=== PATIENT | female | born 1935 | race Asian ===

== ENCOUNTER 2016-12-19 19:41 | Inpatient (IN) | payer MEDICARE, OTHER ==
[~2016-12-19] VITALS: Ht 162.6 cm; Wt 69.5 kg
[~2016-12-19 19:41] MED LIST: ALEN70TA30 PO; AMLO-218 PO; ANAS1TAB PO; ASPI-664 PO; ATOR20TA38 PO; AUG875 PO; CHOL2000 PO; DICL75TA2 PO; DONE5TAB7 PO; OMEP40CA6 PO; OXYB5TAB22 PO
[2016-12-19 20:18] VITALS: Ht 162.6 cm; Wt 69.5 kg
[2016-12-19] MEDS ORDERED: morphine 2 MG INJ IV STA (22:22)
[2016-12-19] MEDS ORDERED: SOD CHLORIDE 0.9% 500 ML IV STA (22:22)
[2016-12-19] MEDS ORDERED: ONDANSETRON 4 MG INJ IV STA (22:22)
--- NOTE | 2016-12-19 23:22 | RADRPT ---
PROCEDURE: Portable chest x-ray. CLINICAL INDICATION: 81 years female abdominal pain TECHNIQUE: Portable AP view of the chest. COMPARISON: December 15, 2014 FINDINGS: Atherosclerotic calcification and tortuosity thoracic aorta. Normal heart size. Decreased lung volumes with vascular crowding versus mild edema. There is bilateral bronchial wall thickening with mild patchy opacity in the left lower lung zone. Negative for pleural effusion or pneumothorax.. No acute bony abnormality. Limited evaluation of the upper abdomen is unremarkable. IMPRESSION: Decreased lung volumes with vascular crowding versus mild edema. Bilateral bronchial wall thickening is in keeping with inflammation of the lower airways that may be infectious or due to reactive airways disease. Mild patchy opacity in the left lower lung zone may represent early pneumonia. Recommend clinical correlation. RPTAT: HCTS Physician Calvin Date Time Electronically viewed and signed by Physician Calvin on 12/19/2016 23:21 /
[2016-12-19 23:27] LABS: BASOPHILS % 0.2 % (0.0-2.0); EOSINOPHILS % 0.1 % (0.0-7.0); HEMATOCRIT 40.1 % (37.0-47.0); HEMOGLOBIN 13.6 g/dl (12.0-16.0); LYMPHOCYTES # 1.4 10^3/ul (0.8-2.9); LYMPHOCYTES % 11.1 % (15.0-51.0); MEAN CORPUSCULAR HEMOGLOBIN 30.2 pg (29.0-33.0); MEAN CORPUSCULAR HGB CONC 33.9 g/dl (32.0-37.0); MEAN CORPUSCULAR VOLUME 88.9 fl (82.0-101.0); MEAN PLATELET VOLUME 9.5 fl (7.4-10.4); MONOCYTE # 1.2 10^3/ul (0.3-0.9); MONOCYTES % 9.9 % (0.0-11.0); PLATELET COUNT 191 10^3/UL (140-415); RED BLOOD COUNT 4.51 10^6/ul (4.20-5.40); RED CELL DISTRIBUTION WIDTH 12.5 % (11.5-14.5); WHITE BLOOD COUNT 12.2 10^3/ul (4.8-10.8)
--- NOTE | 2016-12-19 23:42 | RADRPT ---
PROCEDURE: CT ABDOMEN/PELVIS WITHOUT CONTRAST CLINICAL INDICATION: 81-year-old female with abdominal pain. TECHNIQUE: The study was performed utilizing a GE [employer] VCT 64-slice CT scanner. Direct axia l sections were obtained through the abdomen and pelvis without the use of intravenous contrast mate rial. Sagittal and coronal reformations were obtained. One or more of the following dose reduction t echniques were utilized: automated exposure control, adjustment of the mA and/or kV according to pat ient's size or use of iterative reconstruction technique. The images were reviewed on a PACS workst atMashery. CTD/vol = 15.2 mGy; Total Exam DLP = 791.0 mGy-cm. COMPARISON: CT abdomen/pelvis December 15, 2014. FINDINGS: Cardiomegaly is present. There is minimal bibasilar subsegmental atelectasis. There is no evidence for significant pleural effusion. The liver has a normal size and contour without focal areas of a bnormal density. No intrahepatic nor extrahepatic biliary ductal dilatation is seen. The gallbladder is difficult to visualize but appears to be contracted without evidence for calcified stones or per icholecystic fluid. The pancreas is without areas of abnormal attenuation. The spleen is identified and has a normal size without abnormal density. The adrenal glands are unremarkable. The kidneys ar e without abnormal density. No hydroureteronephrosis nor nephroureterolithiasis is evident. The urin petey bladder contains urine. Is mild retained stool throughout the redundant colon without gross babar l obstruction. There are multiple small diverticula identified within the colon predominantly withi n the sigmoid region without surrounding inflammatory changes. The appendix is visualized and is without abnormal thickening or surrounding inflammatory reaction. The uterus is atrophic with promin ent fluid within the endometrial canal measuring up to 14 mm. This is an abnormal finding in a post menopausal patient. There is no significant free fluid. The aortoiliac vessels are minimally calci fied and ectatic without aneurysmal dilatation. Degenerative changes are present throughout the spin e. There is a T12 compression fracture with approximately 30% loss of height containing gas and acu te components. There is an old L5 compression fracture with approximately 80% loss of height with e vidence for prior kyphoplasty without interval change. There are old fracture deformities involving the right superior/inferior pubic rami. Diffuse osteopenia is present. IMPRESSION: 1. Cardiomegaly. 2. Retained stool within the redundant colon without obstruction. 3. No CT evidence for appendicitis. 4. Sigmoid diverticulosis. 5. Fluid within the endometrial canal having a thickness of 14 mm which has an abnormal finding in a postmenopausal patient. Further evaluation is indicated. 6. Interval development of T12 compression fracture containing gas and acute components with 30% lo ss of height. 7. Old L5 compression fracture (80%) with prior kyphoplasty. 8. Old right superior/inferior pubic rami compression fractures. 9. Diffuse osteopenia. .Erasmo Lagos MD, MD Date Time Electronically viewed and signed by .Erasmo Lagos MD, on 12/19/2016 23:42 .M/
[2016-12-19 23:47] LABS: INR 0.92; PROTIME 12.4 Sec (12.2-14.2)
[2016-12-19 23:50] LABS: ALBUMIN 4.2 g/dl (3.3-4.9); ALBUMIN/GLOBULIN RATIO 1.1; BILIRUBIN,INDIRECT 0.5 mg/dl (0-1.1); BILIRUBIN,TOTAL 0.5 mg/dl (0.2-1.3); CALCIUM 8.8 mg/dl (8.4-10.2); CREATININE 0.95 mg/dl (0.44-1.00)
[2016-12-20] LABS: TROPONIN-I 0.013 ng/ml (0.00-0.12)
[2016-12-20 01:11] LABS: URINE BLOOD (Dip) POC Trace-intact (NEGATIVE)
[2016-12-20] MEDS ORDERED: SOD CHLORIDE 0.9% 500 ML IV STA (01:28)
[2016-12-20] MEDS ORDERED: CEFTRIAXONE 1 GM/50 ML (PMX) 50 ML IVPB STA (01:28)
[2016-12-20] MEDS ORDERED: AZITHROMYCIN 500MG/NS (PMX) 250 ML IV STA (01:28)
[2016-12-20 02:06] LABS: ADD UMIC YES; UR ASCORBIC ACID NEGATIVE (NEGATIVE); UR BACTERIA FEW /HPF (NONE SEEN); UR BILIRUBIN (Dip) NEGATIVE (NEGATIVE); UR BLOOD (Dip) NEGATIVE (NEGATIVE); UR CLARITY CLOUDY (CLEAR); UR COLOR YELLOW (YELLOW); UR GLUCOSE (Dip) 1+ mg/dL (NEGATIVE); UR KETONES (Dip) NEGATIVE (NEGATIVE); UR LEUKOCYTE ESTERASE (Dip) NEGATIVE Leu/ul (NEGATIVE); UR NITRITE (Dip) NEGATIVE (NEGATIVE); UR RBC 2 /HPF (0-5); UR SPECIFIC GRAVITY (Dip) 1.013 (1.003-1.030); UR SQUAMOUS EPITHELIAL CELL MANY /HPF (FEW); UR TOTAL PROTEIN (Dip) 2+ mg/dl (NEGATIVE); UR UROBILINOGEN (Dip) 1+ mg/dL (NEGATIVE)
[2016-12-20 02:33] VITALS: TEMP 97.9
--- NOTE | 2016-12-20 02:34 | ERA ---
ER Documentation Chief Complaint Date/Time DATE: 12/20/16 TIME: 02:22 Chief Complaint Abd pain x 3, -n/v/d HPI 81-year-old female abdominal pain for 3 days. She denies nausea vomiting or diarrhea. Denies any fevers or chills denies nausea or vomiting. Denies any other current complaints. Eating and acting normally otherwise. ROS All systems reviewed and are negative except as per history of present illness. Medications Home Meds Active Scripts Amoxicillin-Clavulanate K* (Augmentin*) 875 Mg Tab, 875 MG PO BID for 12 Days, TAB Prov:SYD JOHNSON 12/21/14 Aspirin* (Aspirin* EC) 81 Mg Tabec, 81 MG PO DAILY for 30 Days Prov:SYD JOHNSON 12/21/14 Reported Medications Cholecalciferol* (Vitamin D3*) 2,000 Unit Cap, 2000 UNIT PO DAILY, CAP 12/15/14 Donepezil* (Donepezil*) 5 Mg Tablet, 5 MG PO DAILY, TAB 12/15/14 Amlodipine Besylate* (Norvasc*) 10 Mg Tablet, 10 MG PO DAILY, TAB 12/15/14 Diclofenac Sodium* (Diclofenac Sodium*) 75 Mg Tablet.dr, 75 MG PO BID, TAB 12/15/14 Oxybutynin Chloride* (Ditropan* XL) 5 Mg Tabsr, 5 MG PO DAILY, TAB.SA 12/15/14 Atorvastatin Calcium* (Atorvastatin Calcium*) 20 Mg Tablet, 20 MG PO HS, TAB 12/15/14 Anastrozole* (Arimidex*) 1 Mg Tablet, 1 MG PO DAILY, TAB 12/15/14 Omeprazole* (Omeprazole*) 40 Mg Capsule.dr, 40 MG PO DAILY, CAP 12/15/14 Alendronate Sodium* (Fosamax*) 70 Mg Tablet, 70 MG PO ON FRIDAYS, TAB 12/15/14 Allergies Allergies: Coded Allergies: No Known Allergy (Unverified , 12/17/14) PMhx/Soc History of Surgery: Yes (L breast mastectomy, R breast lumpectomy) Anesthesia Reaction: No Hx Neurological Disorder: No Hx Respiratory Disorders: No Hx Cardiac Disorders: Yes (HTN) Hx Psychiatric Problems: No Hx Miscellaneous Medical Probl: Yes (Htn,breast CA,arthritis,acid reflux, dementia,dyslipid,R orbital enucleation) Hx Alcohol Use: No Hx Substance Use: No Hx Tobacco Use: No Smoking Status: Never smoker Physical Exam Vitals Vital Signs Date Time Temp Pulse Resp B/P Pulse Ox O2 Delivery O2 Flow Rate FiO2 12/19/16 20:18 99.3 78 18 145/80 95 Physical Exam Const: [] Head: Atraumatic Eyes: Normal Conjunctiva ENT: Normal External Ears, Nose and Mouth. Neck: Full range of motion..~ No meningismus. Resp: Clear to auscultation bilaterally Cardio: Regular rate and rhythm, no murmurs Abd: Soft, non tender, non distended. Normal bowel sounds Skin: No petechiae or rashes Back: No midline or flank tenderness Ext: No cyanosis, or edema Neur: Awake and alert Psych: Normal Mood and Affect Result Diagram: 12/19/16225412/19/162254 Results 24 hrs Laboratory Tests Test 12/19/16 01:05 12/19/16 10:25 12/19/16 22:55 12/20/16 01:16 Urine Color YELLOW Urine Clarity CLOUDY Urine pH 6.0 Urine Specific Robinson 1.013 Urine Ketones NEGATIVEmg/dL Urine Nitrite NEGATIVEmg/dL Urine Bilirubin NEGATIVEmg/dL Urine Urobilinogen 1+mg/dL Urine Leukocyte Esterase NEGATIVELeu/ul Urine Microscopic RBC 2/HPF Urine Microscopic WBC 2/HPF Urine Squamous Epithelial Cells MANY/HPF Urine Bacteria FEW/HPF Urine Hemoglobin NEGATIVEmg/dL Urine Glucose 1+mg/dL Urine Total Protein 2+mg/dl Prothrombin Time 12.4Sec Prothrombin Time Ratio 1.0 INR International Normalized Ratio 0.92 Activated Partial Thromboplast Time 25.0Sec White Blood Count 12.210^3/ul Red Blood Count 4.5110^6/ul Hemoglobin 13.6g/dl Hematocrit 40.1% Mean Corpuscular Volume 88.9fl Mean Corpuscular Hemoglobin 30.2pg Mean Corpuscular Hemoglobin Concent 33.9g/dl Red Cell Distribution Width 12.5% Platelet Count 34925^3/UL Mean Platelet Volume 9.5fl Neutrophils % 78.0% Lymphocytes % 11.1% Monocytes % 9.9% Eosinophils % 0.1% Basophils % 0.2% Nucleated Red Blood Cells % 0.0/100WBC Neutrophils # (Manual) 9.610^3/ul Lymphocytes # 1.410^3/ul Monocytes # 1.210^3/ul Eosinophils # 0.010^3/ul Basophils # 0.010^3/ul Nucleated Red Blood Cells # 0.010^3/ul Sodium Level 127mmol/L Potassium Level 4.0mmol/L Chloride Level 87mmol/L Carbon Dioxide Level 28mmol/L Anion Gap 16 Blood Urea Nitrogen 29mg/dl Creatinine 0.95mg/dl Glucose Level 158mg/dl Calcium Level 8.8mg/dl Total Bilirubin 0.5mg/dl Direct Bilirubin 0.00mg/dl Indirect Bilirubin 0.5mg/dl Aspartate Amino Transf (AST/SGOT) 89IU/L Alanine Aminotransferase (ALT/SGPT) 190IU/L Alkaline Phosphatase 102IU/L Troponin I 0.013ng/ml Total Protein 8.0g/dl Albumin 4.2g/dl Globulin 3.80g/dl Albumin/Globulin Ratio 1.10 Lipase 109U/L Bedside Urine pH (LAB) 6.0 Bedside Urine Protein (LAB) 2+ Bedside Urine Glucose (UA) 0.1% Bedside Urine Ketones (LAB) Negative Bedside Urine Blood Trace-intact Bedside Urine Nitrite (LAB) Negative Bedside Urine Leukocyte Esterase (L Negative Current Medications Medications (Trade) Dose Ordered Sig/Verenice Route PRN Reason Start Time Stop Time Status Last Admin Dose Admin Sodium Chloride (NS) 500 ml @ 500 mls/hr Q1H STAT IV 12/19/16 22:22 12/19/16 23:21 DC 12/19/16 23:22 Morphine Sulfate (morphine) 2 mg ONCE STAT IV 12/19/16 22:22 12/19/16 22:24 DC 12/19/16 23:22 Ondansetron HCl 4 mg 4 mg ONCE STAT IV 12/19/16 22:22 12/19/16 22:24 DC 12/19/16 23:22 Sodium Chloride 500 ml @ 500 mls/hr Q1H STAT IV 12/20/16 01:28 12/20/16 02:27 12/20/16 01:46 Azithromycin 250 ml @ 250 mls/hr ONCE STAT IV 12/20/16 01:28 12/20/16 02:27 Ceftriaxone Sodium (Rocephin) 50 ml @ 100 mls/hr ONCE STAT IVPB 12/20/16 01:28 12/20/16 01:57 DC 12/20/16 01:46 Procedures/MDM EKG: Rate/Rhythm: [Normal Sinus Rhythm] QRS, ST, T-waves: [No changes consistent w/ acute ischemia] Impression: [No evidence of ischemia or arrhythmia] Chest X-ray 1V Interpreted by me: Soft Tissue: No acute abnormalities Bones: No acute abnormalities Mediastinum/Cardiac Silhouette/Lungs: Lower lobe pneumonia Medical decision-makin-year-old female lower lobe pneumonia mild constipation. Patient will be admitted for the evaluation and management. Started on broad-spectrum antibiotics. Admitted to Dr. Foster's on-call physician Departure Diagnosis: Primary Impression: Pneumonia Qualified Code: J18.9 - Pneumonia due to infectious organism, unspecified laterality, unspecified part of lung Condition: Serious BRIDGET MASON Dec 20, 2016 02:34
[2016-12-20 03:23] VITALS: BP 170/76; PULSE 72; RESP 20
[2016-12-20] MEDS ORDERED: ONDANSETRON 4 MG INJ IV PRN (04:30)
[2016-12-20] MEDS ORDERED: DONE10TA7 PO (04:35)
[2016-12-20] MEDS ORDERED: DICL75TA2 PO (04:35)
[2016-12-20] MEDS ORDERED: OMEP40CA6 PO (04:35)
[2016-12-20] MEDS ORDERED: NOL20 PO (04:35)
[2016-12-20] MEDS ORDERED: MEMA5TAB PO (04:35)
[2016-12-20] MEDS ORDERED: LOSA50TA6 PO (04:35)
[2016-12-20] MEDS ORDERED: CHOL100062 PO (05:32)
[2016-12-20 07:38] VITALS: BP 133/67; RESP 16
[2016-12-20] MEDS: ATORVASTATIN 20 MG TAB PO SCH (08:18)
[2016-12-20] MEDS: MEMANTINE 5 MG TAB PO SCH (08:18)
[2016-12-20] MEDS: FAMOTIDINE 20 MG INJ IV SCH (08:18)
[2016-12-20 08:26] LABS: BASOPHILS % 0.3 % (0.0-2.0); EOSINOPHILS # 0.2 10^3/ul (0.0-0.5); EOSINOPHILS % 1.5 % (0.0-7.0); HEMATOCRIT 37.6 % (37.0-47.0); HEMOGLOBIN 12.5 g/dl (12.0-16.0); LYMPHOCYTES # 1.1 10^3/ul (0.8-2.9); LYMPHOCYTES % 10.1 % (15.0-51.0); MEAN CORPUSCULAR HEMOGLOBIN 29.4 pg (29.0-33.0); MEAN CORPUSCULAR HGB CONC 33.2 g/dl (32.0-37.0); MEAN CORPUSCULAR VOLUME 88.5 fl (82.0-101.0); MEAN PLATELET VOLUME 9.5 fl (7.4-10.4); MONOCYTE # 1.1 10^3/ul (0.3-0.9); NEUTROPHILS % 77.7 % (39.0-77.0); PLATELET COUNT 179 10^3/UL (140-415); RED BLOOD COUNT 4.25 10^6/ul (4.20-5.40); RED CELL DISTRIBUTION WIDTH 12.7 % (11.5-14.5); WHITE BLOOD COUNT 10.6 10^3/ul (4.8-10.8)
[2016-12-20] MEDS: LOSARTAN 25 MG TAB PO SCH (08:28)
[2016-12-20 08:45] LABS: CREATININE 0.75 mg/dl (0.44-1.00); POTASSIUM 4.3 mmol/L (3.5-5.1)
[2016-12-20] MEDS: TAMOXIFEN 10 MG TAB PO SCH ×2 (09:00→12:23)
--- NOTE | 2016-12-20 13:47 | CONS ---
Date/Time of Note Date/Time of Note DATE: 12/20/16 TIME: 13:47 Assessment/Plan Assessment/Plan Chief Complaint/Hosp Course Breast cancer history. history of left mastectomy, and right lumpectomy. KATE CONT TAMOXIFEN Pneumonia. Constipation UTI with leukocytosis. Hypertension, uncontrolled. The patient has T12 compression fracture, old L5 compression PAIN CONTROL Problems: Consultation Date/Type/Reason Admit Date/Time Dec 20, 2016 at 01:58 Initial Consult Date 24 HR Interval Summary Free Text/Dictation ALL NOTED D/W SON Exam/Review of Systems Vital Signs Vitals Vital Signs Date Time Temp Pulse Resp B/P Pulse Ox O2 Delivery O2 Flow Rate FiO2 12/20/16 07:38 98.0 71 16 133/67 98 12/20/16 03:23 Room Air Intake and Output 12/19/16 12/19/16 12/20/16 15:00 23:00 07:00 Intake Total 120 ml Balance 120 ml Exam GENERAL: This is a fragile, elderly woman who is in no distress. HEENT: Head atraumatic, normocephalic. Sclerae anicteric. Buccal mucosa pink and dry. NECK: Supple. CHEST: Rise symmetrical. Breath sounds diminished at the bases. HEART: S1, S2. ABDOMEN: Positive guarding and tenderness over suprapubic area on palpation EXTREMITIES: Without cyanosis. Results Result Diagram: 12/20/16 0812/20/16 0805 Results 24 hrs Laboratory Tests Test 12/19/16 22:55 12/20/16 01:16 12/20/16 08:05 White Blood Count 12.2 #H 10.6 Red Blood Count 4.51 4.25 Hemoglobin 13.6 12.5 Hematocrit 40.1 37.6 Mean Corpuscular Volume 88.9 88.5 Mean Corpuscular Hemoglobin 30.2 29.4 Mean Corpuscular Hemoglobin Concent 33.9 33.2 Red Cell Distribution Width 12.5 12.7 Platelet Count 191 179 Mean Platelet Volume 9.5 # 9.5 Neutrophils % 78.0 H 77.7 H Lymphocytes % 11.1 L 10.1 L Monocytes % 9.9 10.0 Eosinophils % 0.1 1.5 Basophils % 0.2 0.3 Nucleated Red Blood Cells % 0.0 0.0 Neutrophils # (Manual) 9.6 H 8.2 H Lymphocytes # 1.4 1.1 Monocytes # 1.2 H 1.1 H Eosinophils # 0.0 0.2 Basophils # 0.0 0.0 Nucleated Red Blood Cells # 0.0 0.0 Sodium Level 127 L 132 L Potassium Level 4.0 4.3 Chloride Level 87 L 95 L Carbon Dioxide Level 28 29 Anion Gap 16 12 Blood Urea Nitrogen 29 H 19 # Creatinine 0.95 0.75 Glucose Level 158 120 Calcium Level 8.8 8.0 L Total Bilirubin 0.5 Direct Bilirubin 0.00 Indirect Bilirubin 0.5 Aspartate Amino Transf (AST/SGOT) 89 H Alanine Aminotransferase (ALT/SGPT) 190 H Alkaline Phosphatase 102 Troponin I 0.013 Total Protein 8.0 Albumin 4.2 Globulin 3.80 H Albumin/Globulin Ratio 1.10 Lipase 109 Bedside Urine pH (LAB) 6.0 Bedside Urine Protein (LAB) 2+ H Bedside Urine Glucose (UA) 0.1% H Bedside Urine Ketones (LAB) Negative Bedside Urine Blood Trace-intact H Bedside Urine Nitrite (LAB) Negative Bedside Urine Leukocyte Esterase (L Negative Medications Medications Current Medications Ceftriaxone Sodium 50 ml @ 100 mls/hr Q24H IVPB ; Start 12/21/16 at 02:00 Azithromycin/ Sodium Chloride (Zithromax/NS) 250 ml @ 250 mls/hr Q24H IVPB ; Start 12/21/16 at 02:00 Ondansetron HCl (Zofran Inj) 4 mg Q6H PRN IV NAUSEA AND/OR VOMITING; Start at 04:30 Famotidine (Pepcid Iv) 20 mg DAILY IV Last administered on 12/20/16 08:18; Admin Dose 20 MG; Start 12/20/16 at 09:00 Acetaminophen (Tylenol Tab) 650 mg Q6H PRN PO PAIN AND OR ELEVATED TEMP; Start 12/20/16 at 04:30 Losartan Potassium (Cozaar) 75 mg DAILY PO Last administered on 12/20/16 08:28 ; Admin Dose 75 MG; Start 12/20/16 at 09:00 Atorvastatin Calcium (Lipitor) 20 mg DAILY PO Last administered on 12/20/16 08 :18; Admin Dose 20 MG; Start 12/20/16 at 09:00 Tamoxifen Citrate (Nolvadex) 20 mg DAILY PO Last administered on 12/20/16 12: 23; Admin Dose 20 MG; Start 12/20/16 at 09:00 Donepezil HCl (Aricept) 10 mg HS PO ; Start 12/20/16 at 21:00 Memantine (Namenda) 5 mg DAILY PO Last administered on 12/20/16t 08:18; Admin Dose 5 MG; Start 12/20/16 at 09:00 JUANI TOBIN MD Dec 20, 2016 13:47
[2016-12-20 15:55] VITALS: BP 142/72; RESP 16
[2016-12-20 19:57] VITALS: BP 137/66; RESP 20
--- NOTE | 2016-12-20 20:37 | QN ---
Documentation Comment [id number] MATT RYAN MD Dec 20, 2016 20:37
[2016-12-20] MEDS: DONEPEZIL 10 MG TAB PO SCH (20:58)
[2016-12-21] MEDS: AZITHROMYCIN 500 MG in SOD CHLORIDE 0.9% 250 ML IVPB SCH (02:11)
[2016-12-21 02:25] VITALS: BP 136/83; RESP 20
[2016-12-21 02:33] VITALS: BP 131/65; RESP 20
[2016-12-21] MEDS: CEFTRIAXONE 1 GM/50 ML (PMX) 50 ML IVPB SCH (03:14)
[2016-12-21 05:39] LABS: BASOPHIL # 0.1 10^3/ul (0.0-0.1); BASOPHILS % 0.4 % (0.0-2.0); EOSINOPHILS # 0.1 10^3/ul (0.0-0.5); EOSINOPHILS % 0.7 % (0.0-7.0); HEMATOCRIT 36.7 % (37.0-47.0); HEMOGLOBIN 12.3 g/dl (12.0-16.0); LYMPHOCYTES # 0.8 10^3/ul (0.8-2.9); LYMPHOCYTES % 6.8 % (15.0-51.0); MEAN CORPUSCULAR HEMOGLOBIN 29.8 pg (29.0-33.0); MEAN CORPUSCULAR HGB CONC 33.5 g/dl (32.0-37.0); MEAN CORPUSCULAR VOLUME 88.9 fl (82.0-101.0); MEAN PLATELET VOLUME 8.8 fl (7.4-10.4); MONOCYTE # 0.9 10^3/ul (0.3-0.9); MONOCYTES % 7.7 % (0.0-11.0); PLATELET COUNT 195 10^3/UL (140-415); RED BLOOD COUNT 4.13 10^6/ul (4.20-5.40); RED CELL DISTRIBUTION WIDTH 12.8 % (11.5-14.5); WHITE BLOOD COUNT 11.1 10^3/ul (4.8-10.8)
[2016-12-21 06:21] LABS: ALBUMIN 3.4 g/dl (3.3-4.9); ALBUMIN/GLOBULIN RATIO 1.06; BILIRUBIN,INDIRECT 0.3 mg/dl (0-1.1); BILIRUBIN,TOTAL 0.3 mg/dl (0.2-1.3); CALCIUM 8.2 mg/dl (8.4-10.2); CREATININE 1.04 mg/dl (0.44-1.00); POTASSIUM 3.8 mmol/L (3.5-5.1); TOTAL PROTEIN 6.6 g/dl (6.1-8.1)
[2016-12-21 07:42] VITALS: BP 135/64; RESP 18
[2016-12-21] MEDS: ATORVASTATIN 20 MG TAB PO SCH (08:06)
[2016-12-21] MEDS: LOSARTAN 25 MG TAB PO SCH (08:06)
[2016-12-21] MEDS: FAMOTIDINE 20 MG INJ IV SCH (08:06)
[2016-12-21] MEDS: MEMANTINE 5 MG TAB PO SCH (08:07)
[2016-12-21] MEDS: TAMOXIFEN 10 MG TAB PO SCH (08:14)
--- NOTE | 2016-12-21 09:57 | CONS ---
DATE OF ADMISSION: 12/20/2016 DATE OF CONSULTATION: 12/20/2016 REASON FOR CONSULTATION: Antibiotic management. HISTORY OF PRESENT ILLNESS: Mackenzie Hyde is an 81-year-old female who is admitted with abdominal pain for 3 days and is being seen for antibiotic management. She denies nausea, vomiting, diarrhea, fever or chills. PAST PROBLEMS: 1. Hypertension. 2. Breast cancer. 3. Status post left breast mastectomy. 4. Right breast lumpectomy. 5. Arthritis. 6. GERD. 7. Dementia. 8. Dyslipidemia. 9. Right orbital enucleation. Acutely the patient comes in with abdominal pain. On admission, her white count is 12.2, H and H of 13.6/40.1, platelet count 191,000. BUN and creatinine 29 and 0.95. The patient was also seen in consultation by Dr. Azalea Contreras, Hematology/Oncology. White count on the 10.6. She is on azithromycin and ceftriaxone for probable assumed pneumonitis. A chest x-ray shows decreased lung volumes. Bilateral bronchial wall thickening is in keeping with inflammation of lower airways. It may be infectious or due to reactive airways disease. Mild patchy opacity in the left lung zone may represent early pneumonia. A CT scan of the abdomen and pelvis was done. Cardiomegaly. Retained stool. No CT evidence for appendicitis. Sigmoid diverticulosis. Fluid within the endometrial canal having a thickness of 14 mm, which is an abnormal finding in a postmenopausal patient. Interval development of T12 compression fracture containing gas and acute components with 30 percent loss of height. Old L5 compression fracture, 80 percent with prior kyphoplasty. Old right superior and inferior pubic rami compression fractures and diffuse osteopenia. PAST MEDICAL HISTORY: Operations as outlined. FAMILY HISTORY: Noncontributory. SOCIAL HISTORY: She does not smoke, drink, or abuse drugs. ALLERGIES: NONE TO PENICILLIN, SULFA, OR FOODS. MEDICATION: Per chart. REVIEW OF SYSTEMS: As per HPI. PHYSICAL EXAMINATION: GENERAL: The patient is a well-developed, well-nourished female, alert, responsive, in no acute distress. VITAL SIGNS: Stable. She is afebrile. SKIN: Without generalized rash. HEENT: Within normal limits. NECK: Supple. Lymph nodes nonpalpable. CHEST: Decreased breath sounds at the bases. HEART: Without murmur or gallop. ABDOMEN: Soft, nontender without organosplenomegaly or masses. EXTREMITIES: Without cyanosis, clubbing, or edema. RECTAL/GENITAL: Exam is deferred. NEUROLOGICAL: No focal neurological abnormalities. IMPRESSION AND PLAN: Patient comes in now with abdominal pain, etiology of which is unclear. She was placed on azithromycin and ceftriaxone, and again there is no clear-cut evidence of pneumonia at this point. She has an echocardiogram pending. She has had blood cultures done, urinalysis done and will await those results. I will dictate my findings to the hospitalist and to Dr. Contreras. Dictated By: Jean Hollingsworth MD JD/nayely/dmitry /Document#: [id number]
--- NOTE | 2016-12-21 09:58 | HP ---
DATE OF ADMISSION: 12/20/2016 HISTORY OF PRESENT ILLNESS: An 81-year-old female with a history of colonoscopy and snare polypectomy, history of moderate size internal hemorrhoids. The patient also has a history of generalized weakness and underlying syncopal episode, rhabdomyolysis, history of hypertension, history of leukocytosis, history of facial edema, odynophagia in the past, history of breast cancer, status post left mastectomy, right lumpectomy, history of dementia, and now presents to this hospital with abdominal pain for 3 days. Denies nausea and vomiting. Denies any fever, chills, or rigors. Blood pressure 145/80. WBC 12.2, hematocrit 41.1, and platelet count 191. Sodium 127, potassium 4, and BUN 29. The patient received Zithromycin and Rocephin in the ER. EKG recorded as normal sinus rhythm. The patient is admitted for further management. PAST MEDICAL HISTORY: Positive for breast cancer and treatment, history of dyslipidemia, history of hypertension, history of left mastectomy, and right lumpectomy. ALLERGIES: NEGATIVE. FAMILY HISTORY: Negative. SOCIAL HISTORY: Negative. MEDICATIONS: 1. Lipitor. 2. Vitamin D3. 3. Diclofenac sodium. 4. Donezepil. 5. Losartan. 6. Namenda. 7. Omeprazole. 8. Tamoxifen. REVIEW OF SYSTEMS: HEENT: Unremarkable. RESPIRATORY: Unremarkable. CARDIOVASCULAR: Unremarkable. RESPIRATORY: No shortness of breath. ABDOMEN: No nausea or vomiting at this point other than dyspepsia earlier. EXTREMITIES: Unremarkable. PHYSICAL EXAMINATION: GENERAL APPEARANCE: The patient is awake and alert. VITAL SIGNS: Pulse 83, blood pressure 140/87. HEENT: Head is atraumatic, normocephalic. Pupils equal and reactive to light. NECK: Supple. No JVD. LUNGS: Severe rhonchi. CARDIAC: S1 and S2 normal. ABDOMEN: Soft, bowel sounds heard upper quadrants. EXTREMITIES: No cyanosis, clubbing, edema. CENTRAL NERVOUS SYSTEM: The patient is awake, alert, and no focal deficit. LABORATORY DATA: WBC 20.2, hematocrit 41.1. Sodium 127, potassium 4.0. The patient's chest x-ray shows bilateral bronchial wall thickening with inflammation of the lower airway that may be inferior, suggested due to reactive airway disease, mild patchy opacities in the left lower lung zone. Presence of pneumonia. The patient had abdomen and pelvis CT scan, cardiomegaly, retained stool within the redundant colon without obstruction. Sigmoid diverticulosis fluid within the endometrial canal having a thickness of 14 mm. T12 compression fracture containing gas and 30 percent loss of height. Old L5 compression fracture. Old right superior inferior compression fracture, diffuse osteopenia. IMPRESSION: 1. Pneumonia. 2. Breast cancer history. 3. The patient has hyponatremia. 4. Leukocytosis. 5. Hypertension. 6. The patient has T12 compression fracture, old L5 compression fracture. PLAN: 1. The patient is currently on Rocephin, Zithromycin, Aricept, Pepcid, Losartan, Lipitor, tamoxifen, Namenda, and Zofran. 2. Continue breathing treatment. 3. The patient will have ID consultation, Hematology and Cardiology consultation. 4. Orders were done. Dictated By: Baljinder Foster MD /nayely/srinivasan /Document#: [id number]
--- NOTE | 2016-12-21 11:13 | RADRPT ---
Echocardiogram Report Patient Name: ALAN MALDONADO Gender: Female Date: 1935 Study Date: 20-Dec-2016 Child Life Assistant: Mark [facility] Location: [id number] Ref. Physician: MATT RYAN Quality: Adequate Procedures: Transthoracic echocardiogram with complete 2D, M-Mode, and doppler examination. Indications: Hx of CVA \T\ HTN. 2D/M Mode Doppler Measurement Value Normal Ranges Measurement Value Normal Ranges LVIDd 2D 4.0 3.5 - 5.6 cm AV Peak Marco 1.8 m/sec LVIDs 2D 2.7 2.1 - 4.1 cm AV Peak PG 12.0 mmHg FS 2D 32.5 % LVOT Peak Marco 1.2 m/sec LVPWd 2D 0.9 0.6 - 1.1 cm LVOT Peak PG 6.0 mmHg IVSd 2D 0.9 0.6 - 1.1 cm MV E Peak Marco 0.8 m/sec IVS/LVPW 2D 1.0 MV A Peak Marco 1.2 m/sec AoR Diam 2D 2.7 2.0 - 3.7 cm MV E/A 0.7 LA/Ao 2D 1 0 - 1 MV Decel Time 239 msec EDV 2D 65.5 cm3 MV E/A 0.7 ESV 2D 20.1 cm3 LA Dimen 2D 3.1 2.3 - 4.0 cm Findings Left Ventricle: Normal left ventricular systolic function. Normal left ventricular cavity size. Normal left ventricular wall thickness. Ejection fraction is visually estimated at 65 %. Tissue Doppler/Mitral Doppler indices are consistent with impaired relaxation (Stage I diastolic dysfunction). Right Ventricle: Normal right ventricular size. Normal right ventricular systolic function. Left Atrium: The left atrium is normal in size. Right Atrium: The right atrium is normal in size. Mitral Valve: Mild mitral leaflet calcification. Mild mitral annular calcification. Trace mitral regurgitation. Aortic Valve: Normal appearance of the aortic valve. No significant aortic stenosis or insufficiency. Tricuspid Valve: Normal appearance of the tricuspid valve. Unable to obtain RVSP due to minimal presence of tricuspid regurgitation. There is trace tricuspid regurgitation. Pulmonic Valve: Pulmonic valve not well visualized. There is mild pulmonic regurgitation. Pericardium: Normal pericardium with no significant pericardial effusion. Aorta: Normal aortic root. IVC: Normal size and normal respiratory collapse consistent with normal right atrial pressure. Conclusions 1.Normal left ventricular systolic function. Normal left ventricular cavity size. Normal left ventricular wall thickness. Ejection fraction is visually estimated at 65 %. Tissue Doppler/Mitral Doppler indices are consistent with impaired relaxation (Stage I diastolic dysfunction). 2.Normal appearance of the aortic valve. No significant aortic stenosis or insufficiency. 3.Normal appearance of the tricuspid valve. Unable to obtain RVSP due to minimal presence of tricuspid regurgitation. There is trace tricuspid regurgitation. 4.Mild mitral leaflet calcification. Mild mitral annular calcification. Trace mitral regurgitation. Electronically Signed By: Gallo Busch 21-Dec-2016 11:04:06 -0700 Patient Name: ALAN MALDONADO Study Date: 20-Dec-2016 [id number]
[2016-12-21 13:07] VITALS: BP 165/73; RESP 28
[2016-12-21 14:25] VITALS: BP 141/69
[2016-12-21] MEDS ORDERED: DOCUSATE SODIUM 100 MG CAP PO PRN (14:30)
[2016-12-21] MEDS ORDERED: BISACODYL (EC) 5 MG TAB PO PRN (14:30)
--- NOTE | 2016-12-21 19:35 | PN ---
Date/Time of Note Date/Time of Note DATE: 12/21/16 TIME: 19:33 Assessment/Plan VTE Prophylaxis VTE Prophylaxis Intervention: other Lines/Catheters IV Catheter Type (from Nrsg): Saline Lock Assessment/Plan Chief Complaint/Hosp Course abd pain pneumonia constipation plan sensor specialist ortho for back fracture Problems: Subjective 24 Hr Interval Summary Gastrointestinal: pain (+) Musculoskeletal: no complaints Exam/Review of Systems Vital Signs Vitals Vital Signs Date Time Temp Pulse Resp B/P Pulse Ox O2 Delivery O2 Flow Rate FiO2 12/21/16 14:25 141/69 12/21/16 13:07 98.6 86 28 96 12/20/16 03:23 Room Air Intake and Output 12/20/16 12/20/16 12/21/16 15:00 23:00 07:00 Intake Total 480 ml 300 ml Balance 480 ml 300 ml Exam Neck: supple Respiratory: clear to auscultation Cardiovascular: regular rate and rhythm Gastrointestinal: soft Musculoskeletal: nl extremities to inspection Extremities: edema (tr) Results Result Diagram: 12/21/16 0520 12/21/16 0520 Results 24 hrs Laboratory Tests Test 12/21/16 05:20 White Blood Count 11.1 H Red Blood Count 4.13 L Hemoglobin 12.3 Hematocrit 36.7 L Mean Corpuscular Volume 88.9 Mean Corpuscular Hemoglobin 29.8 Mean Corpuscular Hemoglobin Concent 33.5 Red Cell Distribution Width 12.8 Platelet Count 195 Mean Platelet Volume 8.8 Neutrophils % 84.0 H Lymphocytes % 6.8 L Monocytes % 7.7 Eosinophils % 0.7 Basophils % 0.4 Nucleated Red Blood Cells % 0.0 Neutrophils # (Manual) 9.3 H Lymphocytes # 0.8 Monocytes # 0.9 Eosinophils # 0.1 Basophils # 0.1 Nucleated Red Blood Cells # 0.0 Sodium Level 134 L Potassium Level 3.8 Chloride Level 97 Carbon Dioxide Level 26 Anion Gap 15 Blood Urea Nitrogen 22 H Creatinine 1.04 H Glucose Level 126 Calcium Level 8.2 L Total Bilirubin 0.3 Direct Bilirubin 0.00 Indirect Bilirubin 0.3 Aspartate Amino Transf (AST/SGOT) 129 H Alanine Aminotransferase (ALT/SGPT) 264 H Alkaline Phosphatase 65 Total Protein 6.6 # Albumin 3.4 Globulin 3.20 Albumin/Globulin Ratio 1.06 Medications Medications Current Medications Ceftriaxone Sodium 50 ml @ 100 mls/hr Q24H IVPB Last administered on 03:14; Admin Dose 100 MLS/HR; Start 12/21/16 at 02:00 Azithromycin/ Sodium Chloride (Zithromax/NS) 250 ml @ 250 mls/hr Q24H IVPB Last administered on 12/21/16 02:11; Admin Dose 250 MLS/HR; Start 12/21/16 at 02:00 Ondansetron HCl (Zofran Inj) 4 mg Q6H PRN IV NAUSEA AND/OR VOMITING; Start at 04:30 Famotidine (Pepcid Iv) 20 mg DAILY IV Last administered on 12/21/16 08:06; Admin Dose 20 MG; Start 12/20/16 at 09:00 Acetaminophen (Tylenol Tab) 650 mg Q6H PRN PO PAIN AND OR ELEVATED TEMP; Start 12/20/16 at 04:30 Losartan Potassium (Cozaar) 75 mg DAILY PO Last administered on 12/21/16 08:06 ; Admin Dose 75 MG; Start 12/20/16 at 09:00 Atorvastatin Calcium (Lipitor) 20 mg DAILY PO Last administered on 12/21/16 08 :06; Admin Dose 20 MG; Start 12/20/16 at 09:00 Tamoxifen Citrate (Nolvadex) 20 mg DAILY PO Last administered on 12/21/16 08: 14; Admin Dose 20 MG; Start 12/20/16 at 09:00 Donepezil HCl (Aricept) 10 mg HS PO Last administered on 12/20/16 20:58; Admin Dose 10 MG; Start 12/20/16 at 21:00 Memantine (Namenda) 5 mg DAILY PO Last administered on 12/21/16 08:07; Admin Dose 5 MG; Start 12/20/16 at 09:00 Docusate Sodium (Colace) 100 mg BID PRN PO CONSTIPATION; Start 12/21/16 at 14: 30 Bisacodyl (Dulcolax) 10 mg DAILY PRN PO CONSTIPATION; Start 12/21/16 at 14:30 MATT RYAN MD Dec 21, 2016 19:35
[2016-12-21 19:44] VITALS: BP 145/70; RESP 22
[2016-12-21] MEDS: DONEPEZIL 10 MG TAB PO SCH (20:16)
--- NOTE | 2016-12-21 20:56 | PN ---
DATE: 12/21/2016 SUBJECTIVE: No acute events overnight per report. Patient is awake. Family at bedside. No fevers overnight. LABORATORY AND DIAGNOSTIC DATA: WBC 11.1, H and H 12.2 and 36.7, platelets 195, neutrophils 84, no bands. BUN 22, creatinine 1.04. AST 129, ALT 264, alkaline phosphatase 65. Urinalysis on admission revealed negative nitrite, leukocyte esterase, few bacteria. MICROBIOLOGY: Blood cultures remain negative. Urine culture growing gram-negative rods. IMAGING: CT abdomen and pelvis revealed cardiomegaly, retained stool within the redundant colon without obstruction. No appendicitis. Sigmoid diverticulosis. Fluid within the endometrial canal having a thickness of 14 mm, which is an abnormal finding in postmenopausal patient. Further evaluation is indicated. Interval development of T12 compression fracture, containing gas and acute components with 30 percent loss of height. Old L5 compression fracture with prior kyphoplasty. Old right superior inferior pubic chronic compression fractures. Diffuse osteopenia. Chest x-ray revealed bilateral bronchial wall thickening, may be infectious or due to reactive airway disease. Mild patchy opacity in the left lower lung zone may represent early pneumonia. ANTIMICROBIALS: The patient is on Zithromax, Rocephin. PHYSICAL EXAMINATION: GENERAL: This is a well-developed, fragile, chronically ill- appearing [place] woman who is in no distress. HEENT: Head atraumatic, normocephalic. Sclerae anicteric. Buccal mucosa dry. NECK: Supple. CHEST: Rise symmetrical. Breath sounds diminished at the bases. HEART: S1, S2. ABDOMEN: Soft. Bowel sounds present. EXTREMITIES: Without cyanosis. ASSESSMENT: 1. Acute abdominal pain, possibly secondary to urinary tract infection. 2. Gram-negative kindra urinary tract infection. 3. Questionable pneumonia versus reactive airway disease. 4. Multiple compression fractures with interval development of T12 compression fracture. 5. Constipation. 6. History of right breast mastectomy secondary to cancer. PLAN: Patient remains hemodynamically stable. Pending MRI of the spine. Continue antibiotics. Consider to add laxatives and stool softeners for constipation and follow final cultures. Follow Oncology/Cardiology recommendations. A 2-D echocardiogram revealed ejection fraction of 65 percent. Dictated By: Cristiano Goldsmith NP /nayely/dmitry /Document#: [id number]
--- NOTE | 2016-12-21 22:00 | CONS ---
Date/Time of Note Date/Time of Note DATE: 12/21/16 TIME: 22:00 Assessment/Plan Assessment/Plan Chief Complaint/Hosp Course Breast cancer history. history of left mastectomy, and right lumpectomy. KATE CONT TAMOXIFEN Pneumonia. Constipation UTI with leukocytosis. Hypertension, uncontrolled. The patient has T12 compression fracture, old L5 compression PAIN CONTROL Problems: Consultation Date/Type/Reason Admit Date/Time Dec 20, 2016 at 01:58 24 HR Interval Summary Free Text/Dictation ALL NOTED D/W SON Exam/Review of Systems Vital Signs Vitals Vital Signs Date Time Temp Pulse Resp B/P Pulse Ox O2 Delivery O2 Flow Rate FiO2 12/21/16 19:44 99.0 85 22 145/70 95 12/20/16 03:23 Room Air Intake and Output 12/20/16 12/20/16 12/21/16 15:00 23:00 07:00 Intake Total 480 ml 300 ml Balance 480 ml 300 ml Exam GENERAL: This is a fragile, elderly woman who is in no distress. HEENT: Head atraumatic, normocephalic. Sclerae anicteric. Buccal mucosa pink and dry. NECK: Supple. CHEST: Rise symmetrical. Breath sounds diminished at the bases. HEART: S1, S2. ABDOMEN: Positive guarding and tenderness over suprapubic area on palpation EXTREMITIES: Without cyanosis. Results Result Diagram: 12/21/16 0520 12/21/16 0520 Results 24 hrs Laboratory Tests Test 12/21/16 05:20 White Blood Count 11.1 H Red Blood Count 4.13 L Hemoglobin 12.3 Hematocrit 36.7 L Mean Corpuscular Volume 88.9 Mean Corpuscular Hemoglobin 29.8 Mean Corpuscular Hemoglobin Concent 33.5 Red Cell Distribution Width 12.8 Platelet Count 195 Mean Platelet Volume 8.8 Neutrophils % 84.0 H Lymphocytes % 6.8 L Monocytes % 7.7 Eosinophils % 0.7 Basophils % 0.4 Nucleated Red Blood Cells % 0.0 Neutrophils # (Manual) 9.3 H Lymphocytes # 0.8 Monocytes # 0.9 Eosinophils # 0.1 Basophils # 0.1 Nucleated Red Blood Cells # 0.0 Sodium Level 134 L Potassium Level 3.8 Chloride Level 97 Carbon Dioxide Level 26 Anion Gap 15 Blood Urea Nitrogen 22 H Creatinine 1.04 H Glucose Level 126 Calcium Level 8.2 L Total Bilirubin 0.3 Direct Bilirubin 0.00 Indirect Bilirubin 0.3 Aspartate Amino Transf (AST/SGOT) 129 H Alanine Aminotransferase (ALT/SGPT) 264 H Alkaline Phosphatase 65 Total Protein 6.6 # Albumin 3.4 Globulin 3.20 Albumin/Globulin Ratio 1.06 Medications Medications Current Medications Ceftriaxone Sodium 50 ml @ 100 mls/hr Q24H IVPB Last administered on 03:14; Admin Dose 100 MLS/HR; Start 12/21/16 at 02:00 Azithromycin/ Sodium Chloride (Zithromax/NS) 250 ml @ 250 mls/hr Q24H IVPB Last administered on 12/21/16 02:11; Admin Dose 250 MLS/HR; Start 12/21/16 at 02:00 Ondansetron HCl (Zofran Inj) 4 mg Q6H PRN IV NAUSEA AND/OR VOMITING; Start at 04:30 Acetaminophen (Tylenol Tab) 650 mg Q6H PRN PO PAIN AND OR ELEVATED TEMP; Start 12/20/16 at 04:30 Losartan Potassium (Cozaar) 75 mg DAILY PO Last administered on 12/21/16 08:06 ; Admin Dose 75 MG; Start 12/20/16 at 09:00 Atorvastatin Calcium (Lipitor) 20 mg DAILY PO Last administered on 12/21/16 08 :06; Admin Dose 20 MG; Start 12/20/16 at 09:00 Tamoxifen Citrate (Nolvadex) 20 mg DAILY PO Last administered on 12/21/16 08: 14; Admin Dose 20 MG; Start 12/20/16 at 09:00 Donepezil HCl (Aricept) 10 mg HS PO Last administered on 12/21/16 20:16; Admin Dose 10 MG; Start 12/20/16 at 21:00 Memantine (Namenda) 5 mg DAILY PO Last administered on 12/21/16 08:07; Admin Dose 5 MG; Start 12/20/16 at 09:00 Docusate Sodium (Colace) 100 mg BID PRN PO CONSTIPATION; Start 12/21/16 at 14: 30 Bisacodyl (Dulcolax) 10 mg DAILY PRN PO CONSTIPATION; Start 12/21/16 at 14:30 Polyethylene Glycol (Miralax) 17 gm DAILY PO ; Start 12/22/16 at 09:00 Famotidine (Pepcid) 20 mg DAILY PO ; Start 12/22/16 at 09:00 JUANI TOBIN MD Dec 21, 2016 22:00
--- NOTE | 2016-12-21 22:13 | CONS ---
DATE OF ADMISSION: 12/20/2016 DATE OF CONSULTATION: 12/21/2016 Orthopedic Surgical Consultation HISTORY OF PRESENT ILLNESS: The patient is an 81-year-old female, who was admitted on 12/20/2016 when she came to the emergency room complaining of abdominal pain of a few days duration. Initial evaluation in the emergency room revealed a mild fever with the presence of leukocytosis and some changes in the chest x-ray revealed a finding suggestive of lower lobe pneumonia and she was admitted. During the CT scan of the abdomen and pelvis she was found to be a compression fracture involving T12 and Orthopedic Surgery was consulted. She is known to have multiple medical problems including history of colonoscopy with snare polypectomy, syncopal episode, with a history of rhabdomyolysis, hypertension, history of breast cancer status post left mastectomy and right lumpectomy, and history of mild dementia. On enquiring she developed low back pain about 3 years ago and was treated with some type of injection, probably kyphoplasty. She also developed recent back pain starting from about 7 or 8 months ago which she is usually more severe with prolonged standing or walking. Denies any radiation of the pain to the lower extremities. She denies any history of trauma lately. PHYSICAL EXAMINATION: Revealed an 81-year-old female, who seems to be alert and oriented and was able to give me history. However, it is obvious that her memory is not accurate. The deep tendon reflexes were absent both over the ankle and the knee. There were no obvious motor weakness or sensory changes in the distribution of the lumbosacral spinal nerve. Straight leg raising was negative up to about 70-[address] scan revealed the following: There was an old compression fracture of L5 with the evidence of kyphoplasty compared to the previous CT scan obtained in December 2014. There were not much changes. There was a compression fracture with vacuum phenomenon on T12 in the CT scan obtained on December 2016 and this was not present in the CT scan obtained on December 2014. Exact age of this new compression fracture identified by CT scan at this time was not clear. It was also noted there is a evidence of healed fracture involving the right superior and inferior pubic ramus. DIAGNOSTIC IMPRESSION: 1. Old compression fracture of the L5 with the evidence of kyphoplasty at least 3 years or older. 2. Compression fracture of T12, younger than 2 years, without knowing exact age. 3. Symptoms suggestive of possible spinal stenosis without any CT evidence of stenosis. RECOMMEND FOR MANAGEMENT.: 1. MRI scan of the lumbosacral in order to further delineate the age of fracture and also to rule out possible presence of spinal stenosis. 2. Further treatment plan after reviewing the recommended MRI scan. Dictated By: In Erendira King MD /nayely/[email or web address] /Document#: [id number]
[2016-12-22] MEDS: CEFTRIAXONE 1 GM/50 ML (PMX) 50 ML IVPB SCH (01:40)
[2016-12-22 01:52] VITALS: BP 145/75; RESP 22
[2016-12-22] MEDS: AZITHROMYCIN 500 MG in SOD CHLORIDE 0.9% 250 ML IVPB SCH (02:10)
[2016-12-22 05:46] LABS: BASOPHIL # 0.1 10^3/ul (0.0-0.1); BASOPHILS % 0.4 % (0.0-2.0); EOSINOPHILS # 0.1 10^3/ul (0.0-0.5); EOSINOPHILS % 1.2 % (0.0-7.0); HEMATOCRIT 41.2 % (37.0-47.0); HEMOGLOBIN 13.6 g/dl (12.0-16.0); LYMPHOCYTES # 1.4 10^3/ul (0.8-2.9); LYMPHOCYTES % 11.4 % (15.0-51.0); MEAN CORPUSCULAR HEMOGLOBIN 29.6 pg (29.0-33.0); MEAN CORPUSCULAR VOLUME 89.6 fl (82.0-101.0); MEAN PLATELET VOLUME 9.1 fl (7.4-10.4); NEUTROPHILS % 78.6 % (39.0-77.0); PLATELET COUNT 239 10^3/UL (140-415); RED CELL DISTRIBUTION WIDTH 12.9 % (11.5-14.5); WHITE BLOOD COUNT 12.1 10^3/ul (4.8-10.8)
[2016-12-22 06:05] LABS: ALBUMIN/GLOBULIN RATIO 1.08; BILIRUBIN,INDIRECT 0.4 mg/dl (0-1.1); BILIRUBIN,TOTAL 0.4 mg/dl (0.2-1.3); CALCIUM 8.8 mg/dl (8.4-10.2); CREATININE 1.38 mg/dl (0.44-1.00); POTASSIUM 3.6 mmol/L (3.5-5.1); TOTAL PROTEIN 7.7 g/dl (6.1-8.1)
[2016-12-22 07:41] VITALS: BP 179/78; RESP 20
[2016-12-22] MEDS: MEMANTINE 5 MG TAB PO SCH (08:23)
[2016-12-22] MEDS: FAMOTIDINE 20 MG TAB PO SCH (08:23)
[2016-12-22] MEDS: ATORVASTATIN 20 MG TAB PO SCH (08:23)
[2016-12-22] MEDS: LOSARTAN 25 MG TAB PO SCH (08:24)
[2016-12-22] MEDS: TAMOXIFEN 10 MG TAB PO SCH (08:52)
[2016-12-22] MEDS: POLYETHYLENE GLYCOL 17 GM PACKET PO SCH (08:57)
[2016-12-22 14:00] VITALS: BP 155/72; RESP 18
--- NOTE | 2016-12-22 14:15 | PN ---
Date/Time of Note Date/Time of Note DATE: 12/22/16 TIME: 14:13 Assessment/Plan VTE Prophylaxis VTE Prophylaxis Intervention: SCD's Lines/Catheters IV Catheter Type (from Nrs): Saline Lock Assessment/Plan Chief Complaint/Hosp Course 1. Pneumonia. 2. Breast cancer history. 3. Constipation 4. UTI with leukocytosis. 5. Hypertension, uncontrolled. 6. The patient has T12 compression fracture, old L5 compression fracture. Problems: Assessment/Plan 1. Continue antibiotics 2. Better hypertension control Subjective 24 Hr Interval Summary Subjective hx not possible: pt non-verbal Exam/Review of Systems Vital Signs Vitals Vital Signs Date Time Temp Pulse Resp B/P Pulse Ox O2 Delivery O2 Flow Rate FiO2 12/22/16 07:41 98.2 78 20 179/78 95 12/20/16 03:23 Room Air Intake and Output 12/21/16 12/21/16 12/22/16 15:00 23:00 07:00 Intake Total 120 ml 1120 ml 500 ml Balance 120 ml 1120 ml 500 ml Exam Constitutional: other (confused) Head: other (fascial edema) Neck: supple Respiratory: diminished breath sounds Cardiovascular: regular rate and rhythm Gastrointestinal: soft Results Result Diagram: 12/22/16 0509 12/22/16 0509 Results 24 hrs Laboratory Tests Test 12/22/16 05:09 White Blood Count 12.1 H Red Blood Count 4.60 Hemoglobin 13.6 Hematocrit 41.2 Mean Corpuscular Volume 89.6 Mean Corpuscular Hemoglobin 29.6 Mean Corpuscular Hemoglobin Concent 33.0 Red Cell Distribution Width 12.9 Platelet Count 239 # Mean Platelet Volume 9.1 Neutrophils % 78.6 H Lymphocytes % 11.4 L Monocytes % 8.0 Eosinophils % 1.2 Basophils % 0.4 Nucleated Red Blood Cells % 0.0 Neutrophils # (Manual) 10 H Lymphocytes # 1.4 Monocytes # 1.0 H Eosinophils # 0.1 Basophils # 0.1 Nucleated Red Blood Cells # 0.0 Sodium Level 137 Potassium Level 3.6 Chloride Level 100 Carbon Dioxide Level 27 Anion Gap 14 Blood Urea Nitrogen 22 H Creatinine 1.38 H Glucose Level 119 Calcium Level 8.8 Total Bilirubin 0.4 Direct Bilirubin 0.00 Indirect Bilirubin 0.4 Aspartate Amino Transf (AST/SGOT) 132 H Alanine Aminotransferase (ALT/SGPT) 317 H Alkaline Phosphatase 79 Total Protein 7.7 # Albumin 4.0 Globulin 3.70 H Albumin/Globulin Ratio 1.08 Medications Medications Current Medications Ceftriaxone Sodium 50 ml @ 100 mls/hr Q24H IVPB Last administered on 01:40; Admin Dose 100 MLS/HR; Start 12/21/16 at 02:00 Azithromycin/ Sodium Chloride (Zithromax/NS) 250 ml @ 250 mls/hr Q24H IVPB Last administered on 12/22/16 02:10; Admin Dose 250 MLS/HR; Start 12/21/16 at 02:00 Ondansetron HCl (Zofran Inj) 4 mg Q6H PRN IV NAUSEA AND/OR VOMITING; Start at 04:30 Acetaminophen (Tylenol Tab) 650 mg Q6H PRN PO PAIN AND OR ELEVATED TEMP; Start 12/20/16 at 04:30 Losartan Potassium (Cozaar) 75 mg DAILY PO Last administered on 12/22/16 08:24 ; Admin Dose 75 MG; Start 12/20/16 at 09:00 Atorvastatin Calcium (Lipitor) 20 mg DAILY PO Last administered on 12/22/16 08 :23; Admin Dose 20 MG; Start 12/20/16 at 09:00 Tamoxifen Citrate (Nolvadex) 20 mg DAILY PO Last administered on 12/22/16 08: 52; Admin Dose 20 MG; Start 12/20/16 at 09:00 Donepezil HCl (Aricept) 10 mg HS PO Last administered on 12/21/16 20:16; Admin Dose 10 MG; Start 12/20/16 at 21:00 Memantine (Namenda) 5 mg DAILY PO Last administered on 12/22/16 08:23; Admin Dose 5 MG; Start 12/20/16 at 09:00 Docusate Sodium (Colace) 100 mg BID PRN PO CONSTIPATION; Start 12/21/16 at 14: 30 Bisacodyl (Dulcolax) 10 mg DAILY PRN PO CONSTIPATION; Start 12/21/16 at 14:30 Polyethylene Glycol (Miralax) 17 gm DAILY PO ; Start 12/22/16 at 09:00 Famotidine (Pepcid) 20 mg DAILY PO Last administered on 12/22/16 08:23; Admin Dose 20 MG; Start 12/22/16 at 09:00 COLT UGARTE Dec 22, 2016 14:15
[2016-12-22 20:00] VITALS: BP_SYST 157; BP_SYST 181; BP_DIAS 73; BP_DIAS 76; RESP 18
[2016-12-22] MEDS: DONEPEZIL 10 MG TAB PO SCH (20:52)
[2016-12-22 22:40] VITALS: BP 166/78; PULSE 72
--- NOTE | 2016-12-22 22:55 | CONS ---
Date/Time of Note Date/Time of Note DATE: 12/22/16 TIME: 22:55 Assessment/Plan Assessment/Plan Chief Complaint/Hosp Course Breast cancer history. history of left mastectomy, and right lumpectomy. KATE CONT TAMOXIFEN Pneumonia. Constipation UTI with leukocytosis. Hypertension, uncontrolled. The patient has T12 compression fracture, old L5 compression PAIN CONTROL Problems: Consultation Date/Type/Reason Admit Date/Time Dec 20, 2016 at 01:58 24 HR Interval Summary Free Text/Dictation ALL NOTED Exam/Review of Systems Vital Signs Vitals Vital Signs Date Time Temp Pulse Resp B/P Pulse Ox O2 Delivery O2 Flow Rate FiO2 12/22/16 22:40 72 166/78 12/22/16 20:00 99.9 18 97 12/20/16 03:23 Room Air Intake and Output 12/21/16 12/21/16 12/22/16 15:00 23:00 07:00 Intake Total 120 ml 1120 ml 500 ml Balance 120 ml 1120 ml 500 ml Exam GENERAL: This is a fragile, elderly woman who is in no distress. HEENT: Head atraumatic, normocephalic. Sclerae anicteric. Buccal mucosa pink and dry. NECK: Supple. CHEST: Rise symmetrical. Breath sounds diminished at the bases. HEART: S1, S2. ABDOMEN: Positive guarding and tenderness over suprapubic area on palpation EXTREMITIES: Without cyanosis. Results Result Diagram: 12/22/16 0509 12/22/16 0509 Results 24 hrs Laboratory Tests Test 12/22/16 05:09 White Blood Count 12.1 H Red Blood Count 4.60 Hemoglobin 13.6 Hematocrit 41.2 Mean Corpuscular Volume 89.6 Mean Corpuscular Hemoglobin 29.6 Mean Corpuscular Hemoglobin Concent 33.0 Red Cell Distribution Width 12.9 Platelet Count 239 # Mean Platelet Volume 9.1 Neutrophils % 78.6 H Lymphocytes % 11.4 L Monocytes % 8.0 Eosinophils % 1.2 Basophils % 0.4 Nucleated Red Blood Cells % 0.0 Neutrophils # (Manual) 10 H Lymphocytes # 1.4 Monocytes # 1.0 H Eosinophils # 0.1 Basophils # 0.1 Nucleated Red Blood Cells # 0.0 Sodium Level 137 Potassium Level 3.6 Chloride Level 100 Carbon Dioxide Level 27 Anion Gap 14 Blood Urea Nitrogen 22 H Creatinine 1.38 H Glucose Level 119 Calcium Level 8.8 Total Bilirubin 0.4 Direct Bilirubin 0.00 Indirect Bilirubin 0.4 Aspartate Amino Transf (AST/SGOT) 132 H Alanine Aminotransferase (ALT/SGPT) 317 H Alkaline Phosphatase 79 Total Protein 7.7 # Albumin 4.0 Globulin 3.70 H Albumin/Globulin Ratio 1.08 Medications Medications Current Medications Ceftriaxone Sodium 50 ml @ 100 mls/hr Q24H IVPB Last administered on 01:40; Admin Dose 100 MLS/HR; Start 12/21/16 at 02:00 Azithromycin/ Sodium Chloride (Zithromax/NS) 250 ml @ 250 mls/hr Q24H IVPB Last administered on 12/22/16 02:10; Admin Dose 250 MLS/HR; Start 12/21/16 at 02:00 Ondansetron HCl (Zofran Inj) 4 mg Q6H PRN IV NAUSEA AND/OR VOMITING; Start at 04:30 Acetaminophen (Tylenol Tab) 650 mg Q6H PRN PO PAIN AND OR ELEVATED TEMP; Start 12/20/16 at 04:30 Losartan Potassium (Cozaar) 75 mg DAILY PO Last administered on 12/22/16 08:24 ; Admin Dose 75 MG; Start 12/20/16 at 09:00 Atorvastatin Calcium (Lipitor) 20 mg DAILY PO Last administered on 12/22/16 08 :23; Admin Dose 20 MG; Start 12/20/16 at 09:00 Tamoxifen Citrate (Nolvadex) 20 mg DAILY PO Last administered on 12/22/16 08: 52; Admin Dose 20 MG; Start 12/20/16 at 09:00 Donepezil HCl (Aricept) 10 mg HS PO Last administered on 12/22/16 20:52; Admin Dose 10 MG; Start 12/20/16 at 21:00 Memantine (Namenda) 5 mg DAILY PO Last administered on 12/22/16 08:23; Admin Dose 5 MG; Start 12/20/16 at 09:00 Docusate Sodium (Colace) 100 mg BID PRN PO CONSTIPATION; Start 12/21/16 at 14: 30 Bisacodyl (Dulcolax) 10 mg DAILY PRN PO CONSTIPATION; Start 12/21/16 at 14:30 Polyethylene Glycol (Miralax) 17 gm DAILY PO ; Start 12/22/16 at 09:00 Famotidine (Pepcid) 20 mg DAILY PO Last administered on 12/22/16t 08:23; Admin Dose 20 MG; Start 12/22/16 at 09:00 Metoprolol Succinate (Toprol Xl) 25 mg DAILY PO ; Start 12/23/16 at 09:00 Hydralazine HCl (Apresoline) 5 mg ONCE ONCE IV ; Start 12/22/16 at 23:00; Stop 12/22/16 at 23:01; Status UNV JUANI TOBIN MD Dec 22, 2016 22:55
[2016-12-22] MEDS ORDERED: hydrALAzine 20 MG INJ IV ONE (23:00)
[2016-12-23] MEDS: CEFTRIAXONE 1 GM/50 ML (PMX) 50 ML IVPB SCH (01:25)
[2016-12-23 01:42] VITALS: BP 142/71; PULSE 71; RESP 18
--- NOTE | 2016-12-23 01:42 | CONS ---
DATE OF ADMISSION: 12/20/2016 DATE OF CONSULTATION: 12/22/2016 Thank you for consulting with us. HISTORY OF PRESENT ILLNESS: This is an 81-year-old admitted to the hospital with abdominal pain and diagnosis of pneumonia. Patient had incidental finding of some fluid collection in the uterine cavity, endometrial cavity. PAST MEDICAL HISTORY: Breast cancer and hypertension and also lumbar fracture. PAST SURGICAL HISTORY: Denies. ALLERGIES: NKDA. PHYSICAL EXAMINATION: VITAL SIGNS: Normal. GENERAL APPEARANCE: Normal. ABDOMEN: Soft, nontender, nondistended. GENITAL: Normal. No mass or lesion was noticed in the vaginal vault or blood was noticed in the vaginal vault. LABORATORY: Abdominal and pelvic CAT scan showed a fluid collection in the cavity, 14 mm. IMPRESSION AND PLAN: The patient needs a DENTAL EQUIPMENT INSTALLER AND SERVICER visit as an outpatient to be scheduled for dilation and curettage, hysteroscopy or endometrial biopsy as an outpatient. No acute DENTAL EQUIPMENT INSTALLER AND SERVICER intervention is needed at this time. Given the information on the CAT scan, endometrial hyperplasia or endometrial cancer are likely but it is not uncommon to have fluid in the endometrial cavity in a postmenopausal patient like this, but need to rule out cancer or endometrial hyperplasia. Patient and her family member understand that they need to see their fuel efficient aircraft designer to be scheduled for dilation and curettage and hysteroscopy or endometrial biopsy as an outpatient. No acute DENTAL EQUIPMENT INSTALLER AND SERVICER intervention is needed in the hospital, and at this time, given the patient's other issues like pneumonia, leukocytosis and hypertension, hypercholesterolemia, the above information was communicated to Dr. Foster, and please contact us if there is any question or any new symptoms or you need to have a repeat DENTAL EQUIPMENT INSTALLER AND SERVICER consult on this patient. We are always available at 1553. Thank you for consulting with us. Dictated By: Ned Singh MD /nayely/rakesh /Document#: [id number]
[2016-12-23] MEDS: AZITHROMYCIN 500 MG in SOD CHLORIDE 0.9% 250 ML IVPB SCH (02:05)
--- NOTE | 2016-12-23 05:32 | PN ---
DATE: 12/22/2016 SUBJECTIVE DATA: No acute changes overnight. The patient is lying comfortably in bed. No fevers. OBJECTIVE DATA: VITAL SIGNS: Temperature 98.2, pulse 78, respirations 20, blood pressure 179/78, and saturation 95 on room air. LABORATORY AND DIAGNOSTIC DATA: WBC 12.1, platelets 239, neutrophils 78.6, BUN 22, and creatinine 1.38. MICROBIOLOGY: Urine culture growing E coli susceptible to all antibiotics. INDWELLING: Peripheral IV. ANTIMICROBIALS: Zithromax, Rocephin. PHYSICAL EXAMINATION: GENERAL: This is a fragile, elderly woman who is in no distress. HEENT: Head atraumatic, normocephalic. Sclerae anicteric. Buccal mucosa pink and dry. NECK: Supple. CHEST: Rise symmetrical. Breath sounds diminished at the bases. HEART: S1, S2. ABDOMEN: Soft. Bowel sounds present. EXTREMITIES: Without cyanosis. ASSESSMENT: 1. Escherichia coli urinary tract infection. 2. Possible pneumonia versus reactive airway disease, remains on antibiotics. 3. Multiple compression fractures. 4. Constipation. 5. History of right breast mastectomy. PLAN: The patient remains stable. Ortho team follows pending spinal MRI. Continue anti-aspiration measures. Dictated By: Cristiano Goldsmith NP /nayely/srinivasan /Document#: [id number]
[2016-12-23 07:00] LABS: CALCIUM 8.5 mg/dl (8.4-10.2); CREATININE 1.65 mg/dl (0.44-1.00)
[2016-12-23 07:42] VITALS: BP 143/63; RESP 20
[2016-12-23] MEDS ORDERED: METOPROLOL (XL) 25 MG TAB PO SCH (09:00)
[2016-12-23 09:44] LABS: BASOPHILS % 0.3 % (0.0-2.0); EOSINOPHILS # 0.1 10^3/ul (0.0-0.5); EOSINOPHILS % 0.4 % (0.0-7.0); HEMATOCRIT 40.2 % (37.0-47.0); HEMOGLOBIN 13.2 g/dl (12.0-16.0); LYMPHOCYTES # 1.1 10^3/ul (0.8-2.9); LYMPHOCYTES % 9.6 % (15.0-51.0); MEAN CORPUSCULAR HEMOGLOBIN 29.5 pg (29.0-33.0); MEAN CORPUSCULAR HGB CONC 32.8 g/dl (32.0-37.0); MEAN CORPUSCULAR VOLUME 89.9 fl (82.0-101.0); MEAN PLATELET VOLUME 9.4 fl (7.4-10.4); MONOCYTE # 0.9 10^3/ul (0.3-0.9); MONOCYTES % 7.7 % (0.0-11.0); NEUTROPHILS % 81.7 % (39.0-77.0); PLATELET COUNT 214 10^3/UL (140-415); RED BLOOD COUNT 4.47 10^6/ul (4.20-5.40); RED CELL DISTRIBUTION WIDTH 13.1 % (11.5-14.5); WHITE BLOOD COUNT 11.9 10^3/ul (4.8-10.8)
[2016-12-23] MEDS: ATORVASTATIN 20 MG TAB PO SCH (09:46)
[2016-12-23] MEDS: TAMOXIFEN 10 MG TAB PO SCH (09:47)
[2016-12-23] MEDS: POLYETHYLENE GLYCOL 17 GM PACKET PO SCH (09:48)
[2016-12-23] MEDS: MEMANTINE 5 MG TAB PO SCH (09:48)
[2016-12-23] MEDS: FAMOTIDINE 20 MG TAB PO SCH (09:48)
[2016-12-23] MEDS: LOSARTAN 25 MG TAB PO SCH (09:49)
[2016-12-23 14:30] VITALS: BP 176/80; RESP 18
[2016-12-23 14:40] VITALS: BP 159/75; PULSE 73
--- NOTE | 2016-12-23 16:00 | CONS ---
Date/Time of Note Date/Time of Note DATE: 12/23/16 TIME: 15:57 Assessment/Plan Assessment/Plan Chief Complaint/Hosp Course SUBJECTIVE DATA: No acute changes overnight. The patient is lying comfortably in bed. No fevers. MICROBIOLOGY: Urine culture growing E coli susceptible to all antibiotics. INDWELLING: Peripheral IV. ANTIMICROBIALS: Zithromax, Rocephin. PHYSICAL EXAMINATION: GENERAL: This is a fragile, elderly woman who is in no distress. HEENT: Head atraumatic, normocephalic. Sclerae anicteric. Buccal mucosa pink and dry. NECK: Supple. CHEST: Rise symmetrical. Breath sounds diminished at the bases. HEART: S1, S2. ABDOMEN: Soft. Bowel sounds present. EXTREMITIES: Without cyanosis. ASSESSMENT: 1. Escherichia coli urinary tract infection. 2. Possible pneumonia versus reactive airway disease, remains on antibiotics. 3. Multiple compression fractures. 4. Constipation. 5. History of right breast mastectomy. PLAN: The patient remains stable. Pending MRI, continue abx, needs to fu with PEST CONTROL TECHNICIAN outpatient for for dilation and curettage and hysteroscopy or endometrial biopsy as an outpatient. No acute PEST CONTROL TECHNICIAN intervention is needed in the hospital per PEST CONTROL TECHNICIAN report, ortho follows [facility] staff Problems: Consultation Date/Type/Reason Admit Date/Time Dec 20, 2016 at 01:58 Initial Consult Date Type of Consultation: ID Exam/Review of Systems Vital Signs Vitals Vital Signs Date Time Temp Pulse Resp B/P Pulse Ox O2 Delivery O2 Flow Rate FiO2 12/23/16 14:40 73 159/75 12/23/16 14:30 98.2 18 91 12/23/16 01:42 Room Air Intake and Output 12/22/16 12/22/16 12/23/16 15:00 23:00 07:00 Intake Total 360 ml 500 ml Balance 360 ml 500 ml Results Result Diagram: 12/23/16 0734 12/23/16 0525 Results 24 hrs Laboratory Tests Test 12/23/16 05:25 12/23/16 07:34 Sodium Level 134 L Potassium Level 4.0 Chloride Level 99 Carbon Dioxide Level 26 Anion Gap 13 Blood Urea Nitrogen 25 H Creatinine 1.65 H Glucose Level 113 Calcium Level 8.5 White Blood Count 11.9 H Red Blood Count 4.47 Hemoglobin 13.2 Hematocrit 40.2 Mean Corpuscular Volume 89.9 Mean Corpuscular Hemoglobin 29.5 Mean Corpuscular Hemoglobin Concent 32.8 Red Cell Distribution Width 13.1 Platelet Count 214 Mean Platelet Volume 9.4 Neutrophils % 81.7 H Lymphocytes % 9.6 L Monocytes % 7.7 Eosinophils % 0.4 Basophils % 0.3 Nucleated Red Blood Cells % 0.0 Neutrophils # (Manual) 10 H Lymphocytes # 1.1 Monocytes # 0.9 Eosinophils # 0.1 Basophils # 0.0 Nucleated Red Blood Cells # 0.0 Medications Medications Current Medications Ceftriaxone Sodium 50 ml @ 100 mls/hr Q24H IVPB Last administered on 01:25; Admin Dose 100 MLS/HR; Start 12/21/16 at 02:00 Azithromycin/ Sodium Chloride (Zithromax/NS) 250 ml @ 250 mls/hr Q24H IVPB Last administered on 12/23/16 02:05; Admin Dose 250 MLS/HR; Start 12/21/16 at 02:00 Ondansetron HCl (Zofran Inj) 4 mg Q6H PRN IV NAUSEA AND/OR VOMITING; Start at 04:30 Acetaminophen (Tylenol Tab) 650 mg Q6H PRN PO PAIN AND OR ELEVATED TEMP; Start 12/20/16 at 04:30 Atorvastatin Calcium (Lipitor) 20 mg DAILY PO Last administered on 12/23/16 09 :46; Admin Dose 20 MG; Start 12/20/16 at 09:00 Tamoxifen Citrate (Nolvadex) 20 mg DAILY PO Last administered on 12/23/16 09: 47; Admin Dose 20 MG; Start 12/20/16 at 09:00 Donepezil HCl (Aricept) 10 mg HS PO Last administered on 12/22/16 20:52; Admin Dose 10 MG; Start 12/20/16 at 21:00 Memantine (Namenda) 5 mg DAILY PO Last administered on 12/23/16 09:48; Admin Dose 5 MG; Start 12/20/16 at 09:00 Docusate Sodium (Colace) 100 mg BID PRN PO CONSTIPATION; Start 12/21/16 at 14: 30 Bisacodyl (Dulcolax) 10 mg DAILY PRN PO CONSTIPATION; Start 12/21/16 at 14:30 Polyethylene Glycol (Miralax) 17 gm DAILY PO Last administered on 12/23/16 09: 48; Admin Dose 17 GM; Start 12/22/16 at 09:00 Famotidine (Pepcid) 20 mg DAILY PO Last administered on 12/23/16 09:48; Admin Dose 20 MG; Start 12/22/16 at 09:00 Metoprolol Succinate (Toprol Xl) 25 mg DAILY PO Last administered on 12/23/16 09:48; Admin Dose 25 MG; Start 12/23/16 at 09:00 Hydralazine HCl (Apresoline) 10 mg TID GTB ; Start 12/23/16 at 21:00 GIFTY LARA NP Dec 23, 2016 16:00
--- NOTE | 2016-12-23 17:10 | PN ---
GRICELDAHeatherCOLT 12/23/16 1710: Date/Time of Note Date/Time of Note DATE: 12/23/16 TIME: 17:09 Assessment/Plan VTE Prophylaxis VTE Prophylaxis Intervention: SCD's Lines/Catheters IV Catheter Type (from Nrsg): Saline Lock Assessment/Plan Chief Complaint/Hosp Course 1. Pneumonia. 2. Breast cancer history. 3. Constipation 4. UTI with leukocytosis. 5. Hypertension, uncontrolled. 6. The patient has T12 compression fracture, old L5 compression fracture. Problems: Assessment/Plan 1. Better control pain Subjective 24 Hr Interval Summary Musculoskeletal: back pain, bone/joint pain Exam/Review of Systems Vital Signs Vitals Vital Signs Date Time Temp Pulse Resp B/P Pulse Ox O2 Delivery O2 Flow Rate FiO2 12/23/16 14:40 73 159/75 12/23/16 14:30 98.2 18 91 12/23/16 01:42 Room Air Intake and Output 12/22/16 12/22/16 12/23/16 15:00 23:00 07:00 Intake Total 360 ml 500 ml Balance 360 ml 500 ml Exam Head: atraumatic, normocephalic Respiratory: diminished breath sounds Cardiovascular: regular rate and rhythm Results Result Diagram: 12/23/16 0734 12/23/16 0525 Results 24 hrs Laboratory Tests Test 12/23/16 05:25 12/23/16 07:34 Sodium Level 134 L Potassium Level 4.0 Chloride Level 99 Carbon Dioxide Level 26 Anion Gap 13 Blood Urea Nitrogen 25 H Creatinine 1.65 H Glucose Level 113 Calcium Level 8.5 White Blood Count 11.9 H Red Blood Count 4.47 Hemoglobin 13.2 Hematocrit 40.2 Mean Corpuscular Volume 89.9 Mean Corpuscular Hemoglobin 29.5 Mean Corpuscular Hemoglobin Concent 32.8 Red Cell Distribution Width 13.1 Platelet Count 214 Mean Platelet Volume 9.4 Neutrophils % 81.7 H Lymphocytes % 9.6 L Monocytes % 7.7 Eosinophils % 0.4 Basophils % 0.3 Nucleated Red Blood Cells % 0.0 Neutrophils # (Manual) 10 H Lymphocytes # 1.1 Monocytes # 0.9 Eosinophils # 0.1 Basophils # 0.0 Nucleated Red Blood Cells # 0.0 Medications Medications Current Medications Ceftriaxone Sodium 50 ml @ 100 mls/hr Q24H IVPB Last administered on t 01:25; Admin Dose 100 MLS/HR; Start 12/21/16 at 02:00 Azithromycin/ Sodium Chloride (Zithromax/NS) 250 ml @ 250 mls/hr Q24H IVPB Last administered on 12/23/16 02:05; Admin Dose 250 MLS/HR; Start 12/21/16 at 02:00 Ondansetron HCl (Zofran Inj) 4 mg Q6H PRN IV NAUSEA AND/OR VOMITING; Start at 04:30 Acetaminophen (Tylenol Tab) 650 mg Q6H PRN PO PAIN AND OR ELEVATED TEMP; Start 12/20/16 at 04:30 Atorvastatin Calcium (Lipitor) 20 mg DAILY PO Last administered on 12/23/16 09 :46; Admin Dose 20 MG; Start 12/20/16 at 09:00 Tamoxifen Citrate (Nolvadex) 20 mg DAILY PO Last administered on 12/23/16 09: 47; Admin Dose 20 MG; Start 12/20/16 at 09:00 Donepezil HCl (Aricept) 10 mg HS PO Last administered on 12/22/16 20:52; Admin Dose 10 MG; Start 12/20/16 at 21:00 Memantine (Namenda) 5 mg DAILY PO Last administered on 12/23/16 09:48; Admin Dose 5 MG; Start 12/20/16 at 09:00 Docusate Sodium (Colace) 100 mg BID PRN PO CONSTIPATION; Start 12/21/16 at 14: 30 Bisacodyl (Dulcolax) 10 mg DAILY PRN PO CONSTIPATION; Start 12/21/16 at 14:30 Polyethylene Glycol (Miralax) 17 gm DAILY PO Last administered on 12/23/16 09: 48; Admin Dose 17 GM; Start 12/22/16 at 09:00 Famotidine (Pepcid) 20 mg DAILY PO Last administered on 12/23/16 09:48; Admin Dose 20 MG; Start 12/22/16 at 09:00 Metoprolol Succinate (Toprol Xl) 25 mg DAILY PO Last administered on 12/23/16 09:48; Admin Dose 25 MG; Start 12/23/16 at 09:00 Hydralazine HCl (Apresoline) 10 mg TID GTB ; Start 12/23/16 at 21:00 KRISTOPHER MOLINA MD 12/23/16 1748: Assessment/Plan Assessment/Plan Assessment/Plan ,Mild RICHARD Cr 1.65< 0.95 on admission Hold losartan, add hydralzine and b romario Exam/Review of Systems Results Result Diagram: 12/23/16 0734 12/23/16 0525 COLT UGARTE Dec 23, 2016 17:10 KRISTOPHER MOLINA MD Dec 23, 2016 17:48
[2016-12-23 19:47] VITALS: BP 162/72; PULSE 69
[2016-12-23] MEDS: DONEPEZIL 10 MG TAB PO SCH (20:21)
[2016-12-23 20:33] VITALS: BP 162/72; RESP 16
--- NOTE | 2016-12-23 22:09 | CONS ---
Date/Time of Note Date/Time of Note DATE: 12/23/16 TIME: 22:09 Assessment/Plan Assessment/Plan Chief Complaint/Hosp Course Breast cancer history. history of left mastectomy, and right lumpectomy. KATE CONT TAMOXIFEN Pneumonia. Constipation UTI with leukocytosis. Hypertension, uncontrolled. The patient has T12 compression fracture, old L5 compression PAIN CONTROL Problems: Consultation Date/Type/Reason Admit Date/Time Dec 20, 2016 at 01:58 Type of Consultation: hemeonc 24 HR Interval Summary Free Text/Dictation ALL NOTED Exam/Review of Systems Vital Signs Vitals Vital Signs Date Time Temp Pulse Resp B/P Pulse Ox O2 Delivery O2 Flow Rate FiO2 12/23/16 20:33 98.7 73 16 162/72 96 12/23/16 19:47 Room Air Intake and Output 12/22/16 12/22/16 12/23/16 15:00 23:00 07:00 Intake Total 360 ml 500 ml Balance 360 ml 500 ml Exam GENERAL: This is a fragile, elderly woman who is in no distress. HEENT: Head atraumatic, normocephalic. Sclerae anicteric. Buccal mucosa pink and dry. NECK: Supple. CHEST: Rise symmetrical. Breath sounds diminished at the bases. HEART: S1, S2. ABDOMEN: Positive guarding and tenderness over suprapubic area on palpation EXTREMITIES: Without cyanosis. Results Result Diagram: 12/23/16 0734 12/23/16 0525 Results 24 hrs Laboratory Tests Test 12/23/16 05:25 12/23/16 07:34 Sodium Level 134 L Potassium Level 4.0 Chloride Level 99 Carbon Dioxide Level 26 Anion Gap 13 Blood Urea Nitrogen 25 H Creatinine 1.65 H Glucose Level 113 Calcium Level 8.5 White Blood Count 11.9 H Red Blood Count 4.47 Hemoglobin 13.2 Hematocrit 40.2 Mean Corpuscular Volume 89.9 Mean Corpuscular Hemoglobin 29.5 Mean Corpuscular Hemoglobin Concent 32.8 Red Cell Distribution Width 13.1 Platelet Count 214 Mean Platelet Volume 9.4 Neutrophils % 81.7 H Lymphocytes % 9.6 L Monocytes % 7.7 Eosinophils % 0.4 Basophils % 0.3 Nucleated Red Blood Cells % 0.0 Neutrophils # (Manual) 10 H Lymphocytes # 1.1 Monocytes # 0.9 Eosinophils # 0.1 Basophils # 0.0 Nucleated Red Blood Cells # 0.0 Medications Medications Current Medications Ceftriaxone Sodium 50 ml @ 100 mls/hr Q24H IVPB Last administered on 01:25; Admin Dose 100 MLS/HR; Start 12/21/16 at 02:00 Azithromycin/ Sodium Chloride (Zithromax/NS) 250 ml @ 250 mls/hr Q24H IVPB Last administered on 12/23/16 02:05; Admin Dose 250 MLS/HR; Start 12/21/16 at 02:00 Ondansetron HCl (Zofran Inj) 4 mg Q6H PRN IV NAUSEA AND/OR VOMITING; Start at 04:30 Acetaminophen (Tylenol Tab) 650 mg Q6H PRN PO PAIN AND OR ELEVATED TEMP; Start 12/20/16 at 04:30 Atorvastatin Calcium (Lipitor) 20 mg DAILY PO Last administered on 12/23/16 09 :46; Admin Dose 20 MG; Start 12/20/16 at 09:00 Tamoxifen Citrate (Nolvadex) 20 mg DAILY PO Last administered on 12/23/16 09: 47; Admin Dose 20 MG; Start 12/20/16 at 09:00 Donepezil HCl (Aricept) 10 mg HS PO Last administered on 12/23/16 20:21; Admin Dose 10 MG; Start 12/20/16 at 21:00 Memantine (Namenda) 5 mg DAILY PO Last administered on 12/23/16 09:48; Admin Dose 5 MG; Start 12/20/16 at 09:00 Docusate Sodium (Colace) 100 mg BID PRN PO CONSTIPATION; Start 12/21/16 at 14: 30 Bisacodyl (Dulcolax) 10 mg DAILY PRN PO CONSTIPATION; Start 12/21/16 at 14:30 Polyethylene Glycol (Miralax) 17 gm DAILY PO Last administered on 12/23/16 09: 48; Admin Dose 17 GM; Start 12/22/16 at 09:00 Famotidine (Pepcid) 20 mg DAILY PO Last administered on 12/23/16 09:48; Admin Dose 20 MG; Start 12/22/16 at 09:00 Metoprolol Succinate (Toprol Xl) 50 mg DAILY PO ; Start 12/24/16 at 09:00 Hydralazine HCl (Apresoline) 10 mg TID PO Last administered on 12/23/16t 20:21 ; Admin Dose 10 MG; Start 12/23/16 at 21:00 JUANI TOBIN MD Dec 23, 2016 22:09
[2016-12-24] MEDS: CEFTRIAXONE 1 GM/50 ML (PMX) 50 ML IVPB SCH (01:04)
[2016-12-24 01:38] VITALS: BP 160/82; PULSE 63
[2016-12-24 02:28] VITALS: BP 162/70; RESP 16
[2016-12-24] MEDS: AZITHROMYCIN 500 MG in SOD CHLORIDE 0.9% 250 ML IVPB SCH (04:42)
[2016-12-24] MEDS: ACETAMINOPHEN 325 MG TAB PO PRN (04:42)
[2016-12-24 07:45] VITALS: BP 144/66; RESP 18
[2016-12-24] MEDS: POLYETHYLENE GLYCOL 17 GM PACKET PO SCH (09:22)
[2016-12-24] MEDS: FAMOTIDINE 20 MG TAB PO SCH (09:22)
[2016-12-24] MEDS: ATORVASTATIN 20 MG TAB PO SCH (09:22)
[2016-12-24] MEDS: MEMANTINE 5 MG TAB PO SCH (09:22)
[2016-12-24] MEDS: METOPROLOL (XL) 50 MG TAB PO SCH (09:23)
[2016-12-24] MEDS: TAMOXIFEN 10 MG TAB PO SCH (09:27)
[2016-12-24 12:56] VITALS: BP 142/63; RESP 18
--- NOTE | 2016-12-24 13:39 | CONS ---
Date/Time of Note Date/Time of Note DATE: 12/24/16 TIME: 13:37 Assessment/Plan Assessment/Plan Chief Complaint/Hosp Course SUBJECTIVE DATA: No acute changes overnight. Awake, eating, looks comfortable, family at bedside, no fevers MICROBIOLOGY: Urine culture growing E coli susceptible to all antibiotics. INDWELLING: Peripheral IV. ANTIMICROBIALS: Zithromax, Rocephin. PHYSICAL EXAMINATION: GENERAL: This is a fragile, elderly woman who is in no distress. HEENT: Head atraumatic, normocephalic. Sclerae anicteric. Buccal mucosa pink and dry. NECK: Supple. CHEST: Rise symmetrical. Breath sounds diminished at the bases. HEART: S1, S2. ABDOMEN: Soft. Bowel sounds present. EXTREMITIES: Without cyanosis. ASSESSMENT: 1. Escherichia coli urinary tract infection. 2. Possible pneumonia versus reactive airway disease, remains on antibiotics. 3. Multiple compression fractures. 4. Constipation. 5. History of right breast mastectomy. PLAN: The patient remains stable, will dc Zithromax tomorrow, continue Rocephin for couple more days, f/u ortho rec-s==> pending MRI [facility] staff Problems: Consultation Date/Type/Reason Admit Date/Time Dec 20, 2016 at 01:58 Type of Consultation: ID Exam/Review of Systems Vital Signs Vitals Vital Signs Date Time Temp Pulse Resp B/P Pulse Ox O2 Delivery O2 Flow Rate FiO2 12/24/16 12:56 98.1 62 18 142/63 96 12/24/16 01:38 Room Air Intake and Output 12/23/16 12/23/16 12/24/16 15:00 23:00 07:00 Intake Total 240 ml 660 ml Balance 240 ml 660 ml Results Result Diagram: 12/23/16 0734 12/23/16 0525 Medications Medications Current Medications Ceftriaxone Sodium 50 ml @ 100 mls/hr Q24H IVPB Last administered on 01:04; Admin Dose 100 MLS/HR; Start 12/21/16 at 02:00 Azithromycin/ Sodium Chloride (Zithromax/NS) 250 ml @ 250 mls/hr Q24H IVPB Last administered on 12/24/16 04:42; Admin Dose 250 MLS/HR; Start 12/21/16 at 02:00 Ondansetron HCl (Zofran Inj) 4 mg Q6H PRN IV NAUSEA AND/OR VOMITING; Start at 04:30 Acetaminophen (Tylenol Tab) 650 mg Q6H PRN PO PAIN AND OR ELEVATED TEMP Last administered on 12/24/16 04:42; Admin Dose 650 MG; Start 12/20/16 at 04:30 Atorvastatin Calcium (Lipitor) 20 mg DAILY PO Last administered on 12/24/16 09 :22; Admin Dose 20 MG; Start 12/20/16 at 09:00 Tamoxifen Citrate (Nolvadex) 20 mg DAILY PO Last administered on 12/24/16 09: 27; Admin Dose 20 MG; Start 12/20/16 at 09:00 Donepezil HCl (Aricept) 10 mg HS PO Last administered on 12/23/16 20:21; Admin Dose 10 MG; Start 12/20/16 at 21:00 Memantine (Namenda) 5 mg DAILY PO Last administered on 12/24/16 09:22; Admin Dose 5 MG; Start 12/20/16 at 09:00 Docusate Sodium (Colace) 100 mg BID PRN PO CONSTIPATION; Start 12/21/16 at 14: 30 Bisacodyl (Dulcolax) 10 mg DAILY PRN PO CONSTIPATION; Start 12/21/16 at 14:30 Polyethylene Glycol (Miralax) 17 gm DAILY PO Last administered on 12/24/16 09: 22; Admin Dose 17 GM; Start 12/22/16 at 09:00 Famotidine (Pepcid) 20 mg DAILY PO Last administered on 12/24/16 09:22; Admin Dose 20 MG; Start 12/22/16 at 09:00 Metoprolol Succinate (Toprol Xl) 50 mg DAILY PO Last administered on 12/24/16 09:23; Admin Dose 50 MG; Start 12/24/16 at 09:00 Hydralazine HCl (Apresoline) 10 mg TID PO Last administered on 12/24/16 12:55 ; Admin Dose 10 MG; Start 12/23/16 at 21:00 GIFTY LARA NP Dec 24, 2016 13:39
[2016-12-24 19:34] VITALS: BP 155/75; RESP 18
--- NOTE | 2016-12-24 19:54 | PN ---
DATE: 12/24/2016 ASSESSMENT AND PLAN: Recommended MRI scan could not be done because of the mechanical problems involving the MRI scan itself. Still complaining of pain in the low back. More noticeable when standing up. The patient was started on Medrol Dosepak. Dictated By: In Erendira King MD /nayely/srinivasan /Document#: [id number]
--- NOTE | 2016-12-24 20:04 | PN ---
Date/Time of Note Date/Time of Note DATE: 12/24/16 TIME: 20:00 Assessment/Plan VTE Prophylaxis VTE Prophylaxis Intervention: SCD's Lines/Catheters IV Catheter Type (from Nrsg): Saline Lock Assessment/Plan Chief Complaint/Hosp Course 1. Pneumonia. 2 Mild RICHARD 2. Breast cancer history. 3. Constipation 4. E UTI with leukocytosis. 5. Hypertension, uncontrolled. 6. The patient has T12 compression fracture, old L5 compression with back pain fracture. Problems: Assessment/Plan 1. Better control pain 2 Pending U/A and repeat labs 3 hold losartan for now 4 MRI tmw 5 c/w rocephin per I.D Problems: Subjective 24 Hr Interval Summary Free Text/Dictation No new complains Mri could not be done due to mechanical problems Exam/Review of Systems Vital Signs Vitals Vital Signs Date Time Temp Pulse Resp B/P Pulse Ox O2 Delivery O2 Flow Rate FiO2 12/24/16 19:34 99.0 66 18 155/75 93 12/24/16 01:38 Room Air Intake and Output 12/23/16 12/23/16 12/24/16 15:00 23:00 07:00 Intake Total 240 ml 660 ml Balance 240 ml 660 ml Exam Head: atraumatic, normocephalic Respiratory: diminished breath sounds Cardiovascular: regular rate and rhythm Results Result Diagram: 12/23/16 0734 12/23/16 0525 Medications Medications Current Medications Ceftriaxone Sodium 50 ml @ 100 mls/hr Q24H IVPB Last administered on 01:04; Admin Dose 100 MLS/HR; Start 12/21/16 at 02:00 Azithromycin/ Sodium Chloride (Zithromax/NS) 250 ml @ 250 mls/hr Q24H IVPB Last administered on 12/24/16 04:42; Admin Dose 250 MLS/HR; Start 12/21/16 at 02:00 Ondansetron HCl (Zofran Inj) 4 mg Q6H PRN IV NAUSEA AND/OR VOMITING; Start at 04:30 Acetaminophen (Tylenol Tab) 650 mg Q6H PRN PO PAIN AND OR ELEVATED TEMP Last administered on 12/24/16 04:42; Admin Dose 650 MG; Start 12/20/16 at 04:30 Atorvastatin Calcium (Lipitor) 20 mg DAILY PO Last administered on 12/24/16 09 :22; Admin Dose 20 MG; Start 12/20/16 at 09:00 Tamoxifen Citrate (Nolvadex) 20 mg DAILY PO Last administered on 12/24/16 09: 27; Admin Dose 20 MG; Start 12/20/16 at 09:00 Donepezil HCl (Aricept) 10 mg HS PO Last administered on 12/23/16 20:21; Admin Dose 10 MG; Start 12/20/16 at 21:00 Memantine (Namenda) 5 mg DAILY PO Last administered on 12/24/16 09:22; Admin Dose 5 MG; Start 12/20/16 at 09:00 Docusate Sodium (Colace) 100 mg BID PRN PO CONSTIPATION; Start 12/21/16 at 14: 30 Bisacodyl (Dulcolax) 10 mg DAILY PRN PO CONSTIPATION; Start 12/21/16 at 14:30 Polyethylene Glycol (Miralax) 17 gm DAILY PO Last administered on 12/24/16 09: 22; Admin Dose 17 GM; Start 12/22/16 at 09:00 Famotidine (Pepcid) 20 mg DAILY PO Last administered on 12/24/16 09:22; Admin Dose 20 MG; Start 12/22/16 at 09:00 Metoprolol Succinate (Toprol Xl) 50 mg DAILY PO Last administered on 12/24/16 09:23; Admin Dose 50 MG; Start 12/24/16 at 09:00 Hydralazine HCl (Apresoline) 10 mg TID PO Last administered on 12/24/16 12:55 ; Admin Dose 10 MG; Start 12/23/16 at 21:00 KRISTOPHER MOLINA MD Dec 24, 2016 20:03
[2016-12-24] MEDS: DONEPEZIL 10 MG TAB PO SCH (21:41)
--- NOTE | 2016-12-24 21:48 | CONS ---
Date/Time of Note Date/Time of Note DATE: 12/24/16 TIME: 21:47 Assessment/Plan Assessment/Plan Chief Complaint/Hosp Course Breast cancer history. history of left mastectomy, and right lumpectomy. KATE CONT TAMOXIFEN Pneumonia. Constipation UTI with leukocytosis. Hypertension, uncontrolled. The patient has T12 compression fracture, old L5 compression PAIN CONTROL Problems: Consultation Date/Type/Reason Admit Date/Time Dec 20, 2016 at 01:58 Type of Consultation: hemeonc 24 HR Interval Summary Free Text/Dictation ALL NOTED Exam/Review of Systems Vital Signs Vitals Vital Signs Date Time Temp Pulse Resp B/P Pulse Ox O2 Delivery O2 Flow Rate FiO2 12/24/16 19:34 99.0 66 18 155/75 93 12/24/16 01:38 Room Air Intake and Output 12/23/16 12/23/16 12/24/16 15:00 23:00 07:00 Intake Total 240 ml 660 ml Balance 240 ml 660 ml Exam GENERAL: This is a fragile, elderly woman who is in no distress. HEENT: Head atraumatic, normocephalic. Sclerae anicteric. Buccal mucosa pink and dry. NECK: Supple. CHEST: Rise symmetrical. Breath sounds diminished at the bases. HEART: S1, S2. ABDOMEN: Positive guarding and tenderness over suprapubic area on palpation EXTREMITIES: Without cyanosis. Results Result Diagram: 12/23/16 0734 12/23/16 0525 Medications Medications Current Medications Ceftriaxone Sodium 50 ml @ 100 mls/hr Q24H IVPB Last administered on 01:04; Admin Dose 100 MLS/HR; Start 12/21/16 at 02:00 Azithromycin/ Sodium Chloride (Zithromax/NS) 250 ml @ 250 mls/hr Q24H IVPB Last administered on 12/24/16 04:42; Admin Dose 250 MLS/HR; Start 12/21/16 at 02:00 Ondansetron HCl (Zofran Inj) 4 mg Q6H PRN IV NAUSEA AND/OR VOMITING; Start at 04:30 Acetaminophen (Tylenol Tab) 650 mg Q6H PRN PO PAIN AND OR ELEVATED TEMP Last administered on 12/24/16 04:42; Admin Dose 650 MG; Start 12/20/16 at 04:30 Atorvastatin Calcium (Lipitor) 20 mg DAILY PO Last administered on 12/24/16 09 :22; Admin Dose 20 MG; Start 12/20/16 at 09:00 Tamoxifen Citrate (Nolvadex) 20 mg DAILY PO Last administered on 12/24/16 09: 27; Admin Dose 20 MG; Start 12/20/16 at 09:00 Donepezil HCl (Aricept) 10 mg HS PO Last administered on 12/24/16 21:41; Admin Dose 10 MG; Start 12/20/16 at 21:00 Memantine (Namenda) 5 mg DAILY PO Last administered on 12/24/16 09:22; Admin Dose 5 MG; Start 12/20/16 at 09:00 Docusate Sodium (Colace) 100 mg BID PRN PO CONSTIPATION; Start 12/21/16 at 14: 30 Bisacodyl (Dulcolax) 10 mg DAILY PRN PO CONSTIPATION; Start 12/21/16 at 14:30 Polyethylene Glycol (Miralax) 17 gm DAILY PO Last administered on 12/24/16 09: 22; Admin Dose 17 GM; Start 12/22/16 at 09:00 Famotidine (Pepcid) 20 mg DAILY PO Last administered on 12/24/16 09:22; Admin Dose 20 MG; Start 12/22/16 at 09:00 Metoprolol Succinate (Toprol Xl) 50 mg DAILY PO Last administered on 12/24/16 09:23; Admin Dose 50 MG; Start 12/24/16 at 09:00 Hydralazine HCl (Apresoline) 10 mg TID PO Last administered on 12/24/16 21:42 ; Admin Dose 10 MG; Start 12/23/16 at 21:00 Procedures Procedures [place] [id number] Radiology Main Line: [phone] DIAGNOSTIC IMAGING REPORT Patient: ALAN MALDONADO : 1935 Age: 81 Sex: F MR #: [id number] DOS: 12/19/162 Ordering MD: BRIDGET MASON MD Location: E/R Room/Bed: PROCEDURE: CT ABDOMEN/PELVIS WITHOUT CONTRAST CLINICAL INDICATION: 81-year-old female with abdominal pain. TECHNIQUE: The study was performed utilizing a [employer] VCT 64-slice CT scanner. Direct axial sections were obtained through the abdomen and pelvis without the use of intravenous contrast material. Sagittal and coronal reformations were obtained. One or more of the following dose reduction techniques were utilized: automated exposure control, adjustment of the mA and/ or kV according to patient's size or use of iterative reconstruction technique. The images were reviewed on a PACS workstation. CTD/vol = 15.2 mGy; Total Exam DLP = 791.0 mGy-cm. COMPARISON: CT abdomen/pelvis December 15, 2014. FINDINGS: Cardiomegaly is present. There is minimal bibasilar subsegmental atelectasis. There is no evidence for significant pleural effusion. The liver has a normal size and contour without focal areas of abnormal density. No intrahepatic nor extrahepatic biliary ductal dilatation is seen. The gallbladder is difficult to visualize but appears to be contracted without evidence for calcified stones or pericholecystic fluid. The pancreas is without areas of abnormal attenuation. The spleen is identified and has a normal size without abnormal density. The adrenal glands are unremarkable. The kidneys are without abnormal density. No hydroureteronephrosis nor nephroureterolithiasis is evident. The urinary bladder contains urine. Is mild retained stool throughout the redundant colon without gross bowel obstruction. There are multiple small diverticula identified within the colon predominantly within the sigmoid region without surrounding inflammatory changes. The appendix is visualized and is without abnormal thickening or surrounding inflammatory reaction. The uterus is atrophic with prominent fluid within the endometrial canal measuring up to 14 mm. This is an abnormal finding in a postmenopausal patient. There is no significant free fluid. The aortoiliac vessels are minimally calcified and ectatic without aneurysmal dilatation. Degenerative changes are present throughout the spine. There is a T12 compression fracture with approximately 30 % loss of height containing gas and acute components. There is an old L5 compression fracture with approximately 80% loss of height with evidence for prior kyphoplasty without interval change. There are old fracture deformities involving the right superior/inferior pubic rami. Diffuse osteopenia is present. IMPRESSION: 1. Cardiomegaly. 2. Retained stool within the redundant colon without obstruction. 3. No CT evidence for appendicitis. 4. Sigmoid diverticulosis. 5. Fluid within the endometrial canal having a thickness of 14 mm which has an abnormal finding in a postmenopausal patient. Further evaluation is indicated. 6. Interval development of T12 compression fracture containing gas and acute components with 30% loss of height. 7. Old L5 compression fracture (80%) with prior kyphoplasty. 8. Old right superior/inferior pubic rami compression fractures. 9. Diffuse osteopenia. .Erasmo Lagos MD, MD Date Time Electronically viewed and signed by .Erasmo Lagos MD, on 12/19/2016 23:42 .M/ CC: BRIDGET MASON VERA M MD Dec 24, 2016 21:48
[2016-12-25] MEDS: CEFTRIAXONE 1 GM/50 ML (PMX) 50 ML IVPB SCH (01:04)
[2016-12-25 01:34] VITALS: BP 151/73; RESP 18
[2016-12-25] MEDS: AZITHROMYCIN 500 MG in SOD CHLORIDE 0.9% 250 ML IVPB SCH (01:41)
[2016-12-25 06:43] LABS: BASOPHILS % 0.3 % (0.0-2.0); EOSINOPHILS # 0.1 10^3/ul (0.0-0.5); EOSINOPHILS % 0.4 % (0.0-7.0); HEMOGLOBIN 12.7 g/dl (12.0-16.0); LYMPHOCYTES # 1.4 10^3/ul (0.8-2.9); LYMPHOCYTES % 9.6 % (15.0-51.0); MEAN CORPUSCULAR HGB CONC 31.8 g/dl (32.0-37.0); MEAN CORPUSCULAR VOLUME 91.3 fl (82.0-101.0); MEAN PLATELET VOLUME 9.3 fl (7.4-10.4); MONOCYTE # 1.3 10^3/ul (0.3-0.9); MONOCYTES % 8.9 % (0.0-11.0); NEUTROPHILS % 80.3 % (39.0-77.0); PLATELET COUNT 189 10^3/UL (140-415); RED BLOOD COUNT 4.38 10^6/ul (4.20-5.40); RED CELL DISTRIBUTION WIDTH 13.4 % (11.5-14.5); WHITE BLOOD COUNT 14.4 10^3/ul (4.8-10.8)
[2016-12-25 07:02] LABS: CALCIUM 8.2 mg/dl (8.4-10.2); CREATININE 3.81 mg/dl (0.44-1.00); POTASSIUM 4.6 mmol/L (3.5-5.1)
[2016-12-25 07:38] VITALS: BP 175/76; RESP 19
[2016-12-25] MEDS: ATORVASTATIN 20 MG TAB PO SCH (08:52)
[2016-12-25] MEDS: FAMOTIDINE 20 MG TAB PO SCH (08:52)
[2016-12-25] MEDS: POLYETHYLENE GLYCOL 17 GM PACKET PO SCH (08:52)
[2016-12-25] MEDS: MEMANTINE 5 MG TAB PO SCH (08:52)
[2016-12-25] MEDS: METOPROLOL (XL) 50 MG TAB PO SCH (08:53)
[2016-12-25] MEDS: TAMOXIFEN 10 MG TAB PO SCH (09:01)
--- NOTE | 2016-12-25 12:16 | PN ---
Date/Time of Note Date/Time of Note DATE: 12/25/16 TIME: 12:10 Assessment/Plan VTE Prophylaxis VTE Prophylaxis Intervention: SCD's Lines/Catheters IV Catheter Type (from Nrsg): Peripheral IV Assessment/Plan Assessment/Plan Physical exam Head: atraumatic, normocephalic Respiratory: diminished breath sounds Cardiovascular: regular rate and rhythm Abdomen: suprapubic fullness Assessment 81 y/o with 1 RICHARD worsening ? obstruction> vs Prerenal 2 Mild RICHARD 2. Breast cancer history. 3. Constipation 4. E UTI with leukocytosis. 5. Hypertension, uncontrolled. 6. The patient has T12 compression fracture, old L5 compression with back pain Plan 1. [place], U/A, U sodium, fluids, hold MRI for now 2. c.w hold losartan 3 BP control : increase hydralzine 25 tid and c.w MTP 4 Pain control 5 Rocephin for UTI 6 GI/DVT prophylaxsis Subjective 24 Hr Interval Summary Free Text/Dictation Pt complaining of pain in suprapubic region per family not eating much Exam/Review of Systems Vital Signs Vitals Vital Signs Date Time Temp Pulse Resp B/P Pulse Ox O2 Delivery O2 Flow Rate FiO2 12/25/16 07:38 99.4 70 19 175/76 96 12/24/16 01:38 Room Air Intake and Output 12/24/16 12/24/16 12/25/16 15:00 23:00 07:00 Intake Total 200 ml 420 ml Balance 200 ml 420 ml Results Result Diagram: 12/25/16 0546 12/25/16 0545 Results 24 hrs Laboratory Tests Test 12/25/16 05:45 12/25/16 05:46 Sodium Level 133 L Potassium Level 4.6 Chloride Level 100 Carbon Dioxide Level 23 Anion Gap 15 Blood Urea Nitrogen 54 H Creatinine 3.81 H Glucose Level 120 Calcium Level 8.2 L White Blood Count 14.4 #H Red Blood Count 4.38 Hemoglobin 12.7 Hematocrit 40.0 Mean Corpuscular Volume 91.3 Mean Corpuscular Hemoglobin 29.0 Mean Corpuscular Hemoglobin Concent 31.8 L Red Cell Distribution Width 13.4 Platelet Count 189 Mean Platelet Volume 9.3 Neutrophils % 80.3 H Lymphocytes % 9.6 L Monocytes % 8.9 Eosinophils % 0.4 Basophils % 0.3 Nucleated Red Blood Cells % 0.0 Neutrophils # (Manual) 12 H Lymphocytes # 1.4 Monocytes # 1.3 H Eosinophils # 0.1 Basophils # 0.0 Nucleated Red Blood Cells # 0.0 Medications Medications Current Medications Ceftriaxone Sodium 50 ml @ 100 mls/hr Q24H IVPB Last administered on 01:04; Admin Dose 100 MLS/HR; Start 12/21/16 at 02:00 Azithromycin/ Sodium Chloride (Zithromax/NS) 250 ml @ 250 mls/hr Q24H IVPB Last administered on 12/25/16 01:41; Admin Dose 250 MLS/HR; Start 12/21/16 at 02:00 Ondansetron HCl (Zofran Inj) 4 mg Q6H PRN IV NAUSEA AND/OR VOMITING; Start at 04:30 Acetaminophen (Tylenol Tab) 650 mg Q6H PRN PO PAIN AND OR ELEVATED TEMP Last administered on 12/24/16 04:42; Admin Dose 650 MG; Start 12/20/16 at 04:30 Atorvastatin Calcium (Lipitor) 20 mg DAILY PO Last administered on 12/25/16 08 :52; Admin Dose 20 MG; Start 12/20/16 at 09:00 Tamoxifen Citrate (Nolvadex) 20 mg DAILY PO Last administered on 12/25/16 09: 01; Admin Dose 20 MG; Start 12/20/16 at 09:00 Donepezil HCl (Aricept) 10 mg HS PO Last administered on 12/24/16 21:41; Admin Dose 10 MG; Start 12/20/16 at 21:00 Memantine (Namenda) 5 mg DAILY PO Last administered on 12/25/16 08:52; Admin Dose 5 MG; Start 12/20/16 at 09:00 Docusate Sodium (Colace) 100 mg BID PRN PO CONSTIPATION; Start 12/21/16 at 14: 30 Bisacodyl (Dulcolax) 10 mg DAILY PRN PO CONSTIPATION; Start 12/21/16 at 14:30 Polyethylene Glycol (Miralax) 17 gm DAILY PO Last administered on 12/25/16 08: 52; Admin Dose 17 GM; Start 12/22/16 at 09:00 Famotidine (Pepcid) 20 mg DAILY PO Last administered on 12/25/16 08:52; Admin Dose 20 MG; Start 12/22/16 at 09:00 Metoprolol Succinate (Toprol Xl) 50 mg DAILY PO Last administered on 12/25/16 08:53; Admin Dose 50 MG; Start 12/24/16 at 09:00 Hydralazine HCl (Apresoline) 10 mg TID PO Last administered on 12/25/16 08:54 ; Admin Dose 10 MG; Start 12/23/16 at 21:00 KRISTOPHER MOLINA MD Dec 25, 2016 12:16
[2016-12-25] MEDS: SOD CHLORIDE 0.9% 500 ML IV SCH ×2 (12:59→22:30)
[2016-12-25 14:06] VITALS: BP 127/60; RESP 18
[2016-12-25 14:21] LABS: ADD UMIC YES; UR ASCORBIC ACID NEGATIVE (NEGATIVE); UR BILIRUBIN (Dip) NEGATIVE (NEGATIVE); UR BLOOD (Dip) 3+ mg/dL (NEGATIVE); UR CLARITY CLEAR (CLEAR); UR COLOR YELLOW (YELLOW); UR GLUCOSE (Dip) NEGATIVE (NEGATIVE); UR KETONES (Dip) NEGATIVE (NEGATIVE); UR LEUKOCYTE ESTERASE (Dip) NEGATIVE Leu/ul (NEGATIVE); UR NITRITE (Dip) NEGATIVE (NEGATIVE); UR RBC 17 /HPF (0-5); UR SPECIFIC GRAVITY (Dip) 1.009 (1.003-1.030); UR TOTAL PROTEIN (Dip) NEGATIVE (NEGATIVE); UR UROBILINOGEN (Dip) NEGATIVE (NEGATIVE)
--- NOTE | 2016-12-25 14:32 | CONS ---
Date/Time of Note Date/Time of Note DATE: 12/25/16 TIME: 14:30 Assessment/Plan Assessment/Plan Chief Complaint/Hosp Course No acute changes overnight. The patient is lying comfortably in bed. Family at bedside concerned that patient is not eating well. Also states that she has been having diarrhea over the last several days Temperature 98.4 pulse 76 respirations 18 blood pressure 127/60 saturation 96% on room air WBC 14.4 platelets 189 neutrophils 80.3 BUN 54 creatinine 3.81 MICROBIOLOGY: Urine culture growing E coli susceptible to all antibiotics. INDWELLING: Peripheral IV. ANTIMICROBIALS: Zithromax, Rocephin. PHYSICAL EXAMINATION: GENERAL: This is a fragile, elderly woman who is in no distress. HEENT: Head atraumatic, normocephalic. Sclerae anicteric. Buccal mucosa pink and dry. NECK: Supple. CHEST: Rise symmetrical. Breath sounds diminished at the bases. HEART: S1, S2. ABDOMEN: Positive guarding and tenderness over suprapubic area on palpation EXTREMITIES: Without cyanosis. ASSESSMENT: 1. Escherichia coli urinary tract infection. 2. Possible pneumonia versus reactive airway disease 3. Acute renal failure possibly secondary to urinary retention. 4. Constipation. 5. History of right breast mastectomy. 6. Abdominal pain with diarrhea per report PLAN: Clinically unchanged, will dc Zithromax, continue Rocephin, insert Hadley catheter, consider CT abdomen, send stool for C. difficile, f/u ortho rec-s==> pending MRI DW staff Problems: Consultation Date/Type/Reason Admit Date/Time Dec 20, 2016 at 01:58 Type of Consultation: id Exam/Review of Systems Vital Signs Vitals Vital Signs Date Time Temp Pulse Resp B/P Pulse Ox O2 Delivery O2 Flow Rate FiO2 12/25/16 14:06 98.4 76 18 127/60 96 12/24/16 01:38 Room Air Intake and Output 12/24/16 12/24/16 12/25/16 15:00 23:00 07:00 Intake Total 200 ml 420 ml Balance 200 ml 420 ml Results Result Diagram: 12/25/16 0546 12/25/16 0545 Results 24 hrs Laboratory Tests Test 12/25/16 05:45 12/25/16 05:46 12/25/16 12:30 Sodium Level 133 L Potassium Level 4.6 Chloride Level 100 Carbon Dioxide Level 23 Anion Gap 15 Blood Urea Nitrogen 54 H Creatinine 3.81 H Glucose Level 120 Calcium Level 8.2 L White Blood Count 14.4 #H Red Blood Count 4.38 Hemoglobin 12.7 Hematocrit 40.0 Mean Corpuscular Volume 91.3 Mean Corpuscular Hemoglobin 29.0 Mean Corpuscular Hemoglobin Concent 31.8 L Red Cell Distribution Width 13.4 Platelet Count 189 Mean Platelet Volume 9.3 Neutrophils % 80.3 H Lymphocytes % 9.6 L Monocytes % 8.9 Eosinophils % 0.4 Basophils % 0.3 Nucleated Red Blood Cells % 0.0 Neutrophils # (Manual) 12 H Lymphocytes # 1.4 Monocytes # 1.3 H Eosinophils # 0.1 Basophils # 0.0 Nucleated Red Blood Cells # 0.0 Urine Color YELLOW Urine Clarity CLEAR Urine pH 6.0 Urine Specific Jbph[facility] 1.009 Urine Ketones NEGATIVE Urine Nitrite NEGATIVE Urine Bilirubin NEGATIVE Urine Urobilinogen NEGATIVE Urine Leukocyte Esterase NEGATIVE Urine Microscopic RBC 17 H Urine Microscopic WBC 1 Urine Hemoglobin 3+ H Urine Random Sodium 65 Urine Glucose NEGATIVE Urine Total Protein NEGATIVE Medications Medications Current Medications Ceftriaxone Sodium 50 ml @ 100 mls/hr Q24H IVPB Last administered on 01:04; Admin Dose 100 MLS/HR; Start 12/21/16 at 02:00 Azithromycin/ Sodium Chloride (Zithromax/NS) 250 ml @ 250 mls/hr Q24H IVPB Last administered on 12/25/16 01:41; Admin Dose 250 MLS/HR; Start 12/21/16 at 02:00 Ondansetron HCl (Zofran Inj) 4 mg Q6H PRN IV NAUSEA AND/OR VOMITING; Start at 04:30 Acetaminophen (Tylenol Tab) 650 mg Q6H PRN PO PAIN AND OR ELEVATED TEMP Last administered on 12/24/16 04:42; Admin Dose 650 MG; Start 12/20/16 at 04:30 Atorvastatin Calcium (Lipitor) 20 mg DAILY PO Last administered on 12/25/16 08 :52; Admin Dose 20 MG; Start 12/20/16 at 09:00 Tamoxifen Citrate (Nolvadex) 20 mg DAILY PO Last administered on 12/25/16 09: 01; Admin Dose 20 MG; Start 12/20/16 at 09:00 Donepezil HCl (Aricept) 10 mg HS PO Last administered on 12/24/16 21:41; Admin Dose 10 MG; Start 12/20/16 at 21:00 Memantine (Namenda) 5 mg DAILY PO Last administered on 12/25/16 08:52; Admin Dose 5 MG; Start 12/20/16 at 09:00 Docusate Sodium (Colace) 100 mg BID PRN PO CONSTIPATION; Start 12/21/16 at 14: 30 Bisacodyl (Dulcolax) 10 mg DAILY PRN PO CONSTIPATION; Start 12/21/16 at 14:30 Polyethylene Glycol (Miralax) 17 gm DAILY PO Last administered on 12/25/16 08: 52; Admin Dose 17 GM; Start 12/22/16 at 09:00 Famotidine (Pepcid) 20 mg DAILY PO Last administered on 12/25/16 08:52; Admin Dose 20 MG; Start 12/22/16 at 09:00 Metoprolol Succinate (Toprol Xl) 50 mg DAILY PO Last administered on 12/25/16 08:53; Admin Dose 50 MG; Start 12/24/16 at 09:00 Hydralazine HCl 25 mg 25 mg TID PO Last administered on 12/25/16 13:30; Admin Dose 25 MG; Start 12/25/16 at 13:00 Sodium Chloride (NS) 500 ml @ 50 mls/hr Q10H IV Last administered on 12:59; Admin Dose 50 MLS/HR; Start 12/25/16 at 12:30 GIFTY LARA NP Dec 25, 2016 14:32
--- NOTE | 2016-12-25 17:09 | RADRPT ---
PROCEDURE: XR Chest. CLINICAL INDICATION: Shortness of breath. TECHNIQUE: Single frontal view. COMPARISON: 12/19/2016. FINDINGS: This is a limited study with the left hand and wrist overlying the lower chest. Visualized portions of the lungs are clear. The heart size is normal. There is calcification in the aorta consistent with atherosclerosis. There is no pleural effusion. There is no pneumothorax. IMPRESSION: 1. Limited study. 2. Atherosclerosis. 3. Otherwise unremarkable chest x-ray. RPTAT: QQ .Issa Sotomayor MD, MD Date Time Electronically viewed and signed by .Issa Sotomayor MD, MD on 12/25/2016 17:08 .R/
[2016-12-25 19:50] VITALS: BP 119/56; RESP 18
[2016-12-25] MEDS: DONEPEZIL 10 MG TAB PO SCH (20:44)
--- NOTE | 2016-12-25 23:29 | CONS ---
Date/Time of Note Date/Time of Note DATE: 12/25/16 TIME: 23:29 Assessment/Plan Assessment/Plan Chief Complaint/Hosp Course Breast cancer history. history of left mastectomy, and right lumpectomy. KATE CONT TAMOXIFEN Pneumonia. Constipation UTI with leukocytosis. Hypertension, uncontrolled. The patient has T12 compression fracture, old L5 compression PAIN CONTROL Problems: Consultation Date/Type/Reason Admit Date/Time Dec 20, 2016 at 01:58 Type of Consultation: hemeonc 24 HR Interval Summary Free Text/Dictation ALL NOTED Exam/Review of Systems Vital Signs Vitals Vital Signs Date Time Temp Pulse Resp B/P Pulse Ox O2 Delivery O2 Flow Rate FiO2 12/25/16 19:50 98.5 76 18 119/56 96 12/24/16 01:38 Room Air Intake and Output 12/24/16 12/24/16 12/25/16 15:00 23:00 07:00 Intake Total 200 ml 420 ml Balance 200 ml 420 ml Exam GENERAL: This is a fragile, elderly woman who is in no distress. HEENT: Head atraumatic, normocephalic. Sclerae anicteric. Buccal mucosa pink and dry. NECK: Supple. CHEST: Rise symmetrical. Breath sounds diminished at the bases. HEART: S1, S2. ABDOMEN: Positive guarding and tenderness over suprapubic area on palpation EXTREMITIES: Without cyanosis. Results Result Diagram: 12/25/16 0546 12/25/16 0545 Results 24 hrs Laboratory Tests Test 12/25/16 05:45 12/25/16 05:46 12/25/16 12:30 Sodium Level 133 L Potassium Level 4.6 Chloride Level 100 Carbon Dioxide Level 23 Anion Gap 15 Blood Urea Nitrogen 54 H Creatinine 3.81 H Glucose Level 120 Calcium Level 8.2 L White Blood Count 14.4 #H Red Blood Count 4.38 Hemoglobin 12.7 Hematocrit 40.0 Mean Corpuscular Volume 91.3 Mean Corpuscular Hemoglobin 29.0 Mean Corpuscular Hemoglobin Concent 31.8 L Red Cell Distribution Width 13.4 Platelet Count 189 Mean Platelet Volume 9.3 Neutrophils % 80.3 H Lymphocytes % 9.6 L Monocytes % 8.9 Eosinophils % 0.4 Basophils % 0.3 Nucleated Red Blood Cells % 0.0 Neutrophils # (Manual) 12 H Lymphocytes # 1.4 Monocytes # 1.3 H Eosinophils # 0.1 Basophils # 0.0 Nucleated Red Blood Cells # 0.0 Urine Color YELLOW Urine Clarity CLEAR Urine pH 6.0 Urine Specific [place] 1.009 Urine Ketones NEGATIVE Urine Nitrite NEGATIVE Urine Bilirubin NEGATIVE Urine Urobilinogen NEGATIVE Urine Leukocyte Esterase NEGATIVE Urine Microscopic RBC 17 H Urine Microscopic WBC 1 Urine Hemoglobin 3+ H Urine Random Sodium 65 Urine Glucose NEGATIVE Urine Total Protein NEGATIVE Medications Medications Current Medications Ceftriaxone Sodium (Rocephin) 50 ml @ 100 mls/hr Q24H IVPB Last administered on 12/25/16 01:04; Admin Dose 100 MLS/HR; Start 12/21/16 at 02:00 Ondansetron HCl (Zofran Inj) 4 mg Q6H PRN IV NAUSEA AND/OR VOMITING; Start at 04:30 Acetaminophen (Tylenol Tab) 650 mg Q6H PRN PO PAIN AND OR ELEVATED TEMP Last administered on 12/24/16 04:42; Admin Dose 650 MG; Start 12/20/16 at 04:30 Atorvastatin Calcium (Lipitor) 20 mg DAILY PO Last administered on 12/25/16 08 :52; Admin Dose 20 MG; Start 12/20/16 at 09:00 Tamoxifen Citrate (Nolvadex) 20 mg DAILY PO Last administered on 12/25/16 09: 01; Admin Dose 20 MG; Start 12/20/16 at 09:00 Donepezil HCl (Aricept) 10 mg HS PO Last administered on 12/25/16 20:44; Admin Dose 10 MG; Start 12/20/16 at 21:00 Memantine (Namenda) 5 mg DAILY PO Last administered on 12/25/16 08:52; Admin Dose 5 MG; Start 12/20/16 at 09:00 Docusate Sodium (Colace) 100 mg BID PRN PO CONSTIPATION; Start 12/21/16 at 14: 30 Bisacodyl (Dulcolax) 10 mg DAILY PRN PO CONSTIPATION; Start 12/21/16 at 14:30 Polyethylene Glycol (Miralax) 17 gm DAILY PO Last administered on 12/25/16 08: 52; Admin Dose 17 GM; Start 12/22/16 at 09:00 Famotidine (Pepcid) 20 mg DAILY PO Last administered on 12/25/16 08:52; Admin Dose 20 MG; Start 12/22/16 at 09:00 Metoprolol Succinate (Toprol Xl) 50 mg DAILY PO Last administered on 12/25/16 08:53; Admin Dose 50 MG; Start 12/24/16 at 09:00 Hydralazine HCl 25 mg 25 mg TID PO Last administered on 12/25/16 20:44; Admin Dose 25 MG; Start 12/25/16 at 13:00 Sodium Chloride (NS) 500 ml @ 50 mls/hr Q10H IV Last administered on 12:59; Admin Dose 50 MLS/HR; Start 12/25/16 at 12:30 JUANI TOBIN MD Dec 25, 2016 23:29
[2016-12-26 02:00] VITALS: BP 145/77; RESP 18
[2016-12-26] MEDS: CEFTRIAXONE 1 GM/50 ML (PMX) 50 ML IVPB SCH (02:42)
[2016-12-26 05:44] LABS: BASOPHILS % 0.4 % (0.0-2.0); EOSINOPHILS # 0.2 10^3/ul (0.0-0.5); EOSINOPHILS % 1.8 % (0.0-7.0); HEMATOCRIT 35.8 % (37.0-47.0); HEMOGLOBIN 11.7 g/dl (12.0-16.0); LYMPHOCYTES # 1.1 10^3/ul (0.8-2.9); LYMPHOCYTES % 11.2 % (15.0-51.0); MEAN CORPUSCULAR HEMOGLOBIN 29.7 pg (29.0-33.0); MEAN CORPUSCULAR HGB CONC 32.7 g/dl (32.0-37.0); MEAN CORPUSCULAR VOLUME 90.9 fl (82.0-101.0); MEAN PLATELET VOLUME 9.1 fl (7.4-10.4); MONOCYTE # 1.1 10^3/ul (0.3-0.9); MONOCYTES % 10.7 % (0.0-11.0); NEUTROPHILS % 75.3 % (39.0-77.0); PLATELET COUNT 174 10^3/UL (140-415); RED BLOOD COUNT 3.94 10^6/ul (4.20-5.40); RED CELL DISTRIBUTION WIDTH 13.2 % (11.5-14.5); WHITE BLOOD COUNT 10.1 10^3/ul (4.8-10.8)
[2016-12-26 06:01] LABS: POTASSIUM 4.2 mmol/L (3.5-5.1)
[2016-12-26 07:42] VITALS: BP 132/68; RESP 18
[2016-12-26] MEDS: SOD CHLORIDE 0.9% 500 ML IV SCH ×3 (08:30→15:42)
[2016-12-26] MEDS: ATORVASTATIN 20 MG TAB PO SCH (08:42)
[2016-12-26] MEDS: METOPROLOL (XL) 50 MG TAB PO SCH (08:42)
[2016-12-26] MEDS: MEMANTINE 5 MG TAB PO SCH (08:42)
[2016-12-26] MEDS: FAMOTIDINE 20 MG TAB PO SCH (08:42)
[2016-12-26] MEDS: POLYETHYLENE GLYCOL 17 GM PACKET PO SCH (09:00)
[2016-12-26] MEDS: TAMOXIFEN 10 MG TAB PO SCH (09:03)
--- NOTE | 2016-12-26 10:40 | PN ---
Date/Time of Note Date/Time of Note DATE: 12/26/16 TIME: 10:38 Assessment/Plan VTE Prophylaxis VTE Prophylaxis Intervention: LMWH, SCD's Lines/Catheters IV Catheter Type (from Nrsg): Peripheral IV Assessment/Plan Chief Complaint/Hosp Course Physical exam Head: atraumatic, normocephalic Respiratory: diminished breath sounds Cardiovascular: regular rate and rhythm Abdomen: suprapubic fullness Assessment 81 y/o with 1 RICHARD resolved likely secondary urinary obstruction s/p Marinelli placement on Cr 3.8>1.0 today 2 Back pain 2. Breast cancer history. on Tamoxifen 3. Constipation 4. E UTI with leukocytosis. 5. Hypertension, controlled 6. The patient has T12 compression fracture, old L5 compression with back pain Plan 1. c/w marinelli, gentle iv fluids today 2 . Dietican consult 3. c.w hold losartan 4 MRI today 5 BP control : c/w hydralzine 25 tid and c.w MTP 6 Pain control 7 Rocephin for UTI 8 GI/DVT prophylaxsis Problems: Subjective 24 Hr Interval Summary Free Text/Dictation Overall better Poor diet intake per family Exam/Review of Systems Vital Signs Vitals Vital Signs Date Time Temp Pulse Resp B/P Pulse Ox O2 Delivery O2 Flow Rate FiO2 12/26/16 07:42 98.6 77 18 132/68 97 12/24/16 01:38 Room Air Intake and Output 12/25/16 12/25/16 12/26/16 15:00 23:00 07:00 Intake Total 720 ml 150 ml Output Total 1350 ml 900 ml Balance -630 ml -750 ml Results Result Diagram: 12/26/16 0523 12/26/16 0523 Results 24 hrs Laboratory Tests Test 12/25/16 12:30 12/26/16 05:23 Urine Color YELLOW Urine Clarity CLEAR Urine pH 6.0 Urine Specific [place] 1.009 Urine Ketones NEGATIVE Urine Nitrite NEGATIVE Urine Bilirubin NEGATIVE Urine Urobilinogen NEGATIVE Urine Leukocyte Esterase NEGATIVE Urine Microscopic RBC 17 H Urine Microscopic WBC 1 Urine Hemoglobin 3+ H Urine Random Sodium 65 Urine Glucose NEGATIVE Urine Total Protein NEGATIVE White Blood Count 10.1 # Red Blood Count 3.94 L Hemoglobin 11.7 L Hematocrit 35.8 L Mean Corpuscular Volume 90.9 Mean Corpuscular Hemoglobin 29.7 Mean Corpuscular Hemoglobin Concent 32.7 Red Cell Distribution Width 13.2 Platelet Count 174 Mean Platelet Volume 9.1 Neutrophils % 75.3 Lymphocytes % 11.2 L Monocytes % 10.7 Eosinophils % 1.8 Basophils % 0.4 Nucleated Red Blood Cells % 0.0 Neutrophils # (Manual) 8 H Lymphocytes # 1.1 Monocytes # 1.1 H Eosinophils # 0.2 Basophils # 0.0 Nucleated Red Blood Cells # 0.0 Sodium Level 135 Potassium Level 4.2 Chloride Level 105 Carbon Dioxide Level 25 Anion Gap 9 # Blood Urea Nitrogen 30 #H Creatinine 1.00 # Glucose Level 116 Calcium Level 8.0 L Medications Medications Current Medications Ceftriaxone Sodium (Rocephin) 50 ml @ 100 mls/hr Q24H IVPB Last administered on 12/26/16 02:42; Admin Dose 100 MLS/HR; Start 12/21/16 at 02:00 Ondansetron HCl (Zofran Inj) 4 mg Q6H PRN IV NAUSEA AND/OR VOMITING; Start at 04:30 Acetaminophen (Tylenol Tab) 650 mg Q6H PRN PO PAIN AND OR ELEVATED TEMP Last administered on 12/24/16 04:42; Admin Dose 650 MG; Start 12/20/16 at 04:30 Atorvastatin Calcium (Lipitor) 20 mg DAILY PO Last administered on 12/26/16 08 :42; Admin Dose 20 MG; Start 12/20/16 at 09:00 Tamoxifen Citrate (Nolvadex) 20 mg DAILY PO Last administered on 12/26/16 09: 03; Admin Dose 20 MG; Start 12/20/16 at 09:00 Donepezil HCl (Aricept) 10 mg HS PO Last administered on 12/25/16 20:44; Admin Dose 10 MG; Start 12/20/16 at 21:00 Memantine (Namenda) 5 mg DAILY PO Last administered on 12/26/16 08:42; Admin Dose 5 MG; Start 12/20/16 at 09:00 Docusate Sodium (Colace) 100 mg BID PRN PO CONSTIPATION; Start 12/21/16 at 14: 30 Bisacodyl (Dulcolax) 10 mg DAILY PRN PO CONSTIPATION; Start 12/21/16 at 14:30 Polyethylene Glycol (Miralax) 17 gm DAILY PO Last administered on 8/21/17at 08: 52; Admin Dose 17 GM; Start 12/22/16 at 09:00 Famotidine (Pepcid) 20 mg DAILY PO Last administered on 12/26/16 08:42; Admin Dose 20 MG; Start 12/22/16 at 09:00 Metoprolol Succinate (Toprol Xl) 50 mg DAILY PO Last administered on 12/26/16 08:42; Admin Dose 50 MG; Start 12/24/16 at 09:00 Hydralazine HCl 25 mg 25 mg TID PO Last administered on 12/26/16 08:43; Admin Dose 25 MG; Start 12/25/16 at 13:00 Sodium Chloride (NS) 500 ml @ 50 mls/hr Q10H IV Last administered on 22:30; Admin Dose 50 MLS/HR; Start 12/25/16 at 12:30 KRISTOPHER MOLINA MD Dec 26, 2016 10:39
[2016-12-26 14:47] VITALS: BP 133/60; RESP 18
[2016-12-26] MEDS ORDERED: METHYLPREDNISOLONE 4 MG TAB PO SCH (17:00)
[2016-12-26] MEDS ORDERED: METHYLPREDNISOLONE (MEDROL) DOSE PACK PO SCH (17:00)
--- NOTE | 2016-12-26 19:54 | PN ---
DATE: 12/26/2016 SUBJECTIVE DATA: No events overnight. No fevers. The patient is lying comfortably in bed. Family member at bedside. According to her, the patient has very poor appetite. Hadley catheter was placed yesterday. LABORATORY AND DIAGNOSTIC DATA: WBC today went down to 10.1; no shift, no bands. BUN 30, creatinine 1.0. ANTIMICROBIALS: The patient remains on Rocephin. OBJECTIVE DATA: GENERAL: This is a fragile, elderly woman who is awake, noncommunicative, in no distress. HEENT: Head atraumatic, normocephalic. Sclerae anicteric. Buccal mucosa dry. NECK: Supple. CHEST: Rise symmetrical. Breath sounds diminished at the bases. HEART: S1, S2. ABDOMEN: Soft, bowel sounds present. EXTREMITIES: Without cyanosis. ASSESSMENT: 1. Escherichia coli urinary tract infection with significant urinary retention status post Hadley catheter placement. 2. Acute renal failure possibly secondary to above with creatinine normalized, today BUN still slightly elevated. 3. History of chronic constipation, on MiraLax. 4. History of right breast mastectomy. 5. Cachexia. 6. Multiple compression fractures and possible spinal stenosis, Ortho follows. PLAN: The patient remains stable. She is on appropriate antibiotics. Pending stool cultures for diarrhea. Pending spinal MRI, follow ortho and oncology recommendations. Dictated By: Cristiano Goldsmith NP /nayely/halina /Document#: [id number]
[2016-12-26 20:00] VITALS: BP 132/63; RESP 18
--- NOTE | 2016-12-26 20:09 | CONS ---
Date/Time of Note Date/Time of Note DATE: 12/19/16 TIME: 21:01 VK LE Assessment/Plan Assessment/Plan Chief Complaint/Hosp Course Breast cancer history. KATE CONT TAMOXIFEN Pneumonia. Constipation UTI with leukocytosis. Hypertension, uncontrolled. The patient has T12 compression fracture, old L5 compression PAIN CONTROL Problems: Consultation Date/Type/Reason Admit Date/Time Dec 20, 2016 at 01:58 Date of Consultation: Dec 19, 2016 Type of Consultation: HEMEONC Reason for Consultation BREAST CANCER Referring Provider: MATT RYAN MD Hx of Present Illness HISTORY OF PRESENT ILLNESS: Mackenzie Hyde is an 81-year-old female who is admitted with abdominal pain for 3 days She denies nausea, vomiting, diarrhea, fever or chills. HER W-UP IS IN PROGRESS I WS AS[facility]ED [facility] HX PAST PROBLEMS: 1. Hypertension. 2. Breast cancer. 3. Status post left breast mastectomy. 4. Right breast lumpectomy. 5. Arthritis. 6. GERD. 7. Dementia. 8. Dyslipidemia. 9. Right orbital enucleation. PAST MEDICAL HISTORY: Operations as outlined. FAMILY HISTORY: Noncontributory. SOCIAL HISTORY: She does not smoke, drink, or abuse drugs. ALLERGIES: NONE TO PENICILLIN, SULFA, OR FOODS. MEDICATION: Per chart. REVIEW OF SYSTEMS: As per HPI. Gastrointestinal: pain (+) Musculoskeletal: back pain, bone/joint pain Social History Smoking Status: Never smoker Exam/Review of Systems Vital Signs Vitals Vital Signs Date Time Temp Pulse Resp B/P Pulse Ox O2 Delivery O2 Flow Rate FiO2 12/19/16 20:18 99.3 78 18 145/80 95 Exam GENERAL: The patient is a well-developed, well-nourished female, alert, responsive, in no acute distress. VITAL SIGNS: Stable. She is afebrile. SKIN: Without generalized rash. HEENT: Within normal limits. NECK: Supple. Lymph nodes nonpalpable. CHEST: Decreased breath sounds at the bases. S/P L MRM, L LUMPECTOMY- KATE HEART: Without murmur or gallop. ABDOMEN: Soft, nontender without organosplenomegaly or masses. EXTREMITIES: Without cyanosis, clubbing, or edema. RECTAL/GENITAL: Exam is deferred. NEUROLOGICAL: No focal neurological abnormalities. Results 12/19/16 1662 12/19/16 2255 Results 24 hrs Laboratory Tests Test 12/19/16 01:05 12/19/16 10:25 12/19/16 22:55 12/20/16 01:16 Urine Color YELLOW Urine Clarity CLOUDY Urine pH 6.0 Urine Specific [place] 1.013 Urine Ketones NEGATIVEmg/dL Urine Nitrite NEGATIVEmg/dL Urine Bilirubin NEGATIVEmg/dL Urine Urobilinogen 1+mg/dL Urine Leukocyte Esterase NEGATIVELeu/ul Urine Microscopic RBC 2/HPF Urine Microscopic WBC 2/HPF Urine Squamous Epithelial Cells MANY/HPF Urine Bacteria FEW/HPF Urine Hemoglobin NEGATIVEmg/dL Urine Glucose 1+mg/dL Urine Total Protein 2+mg/dl Prothrombin Time 12.4Sec Prothrombin Time Ratio 1.0 INR International Normalized Ratio 0.92 Activated Partial Thromboplast Time 25.0Sec White Blood Count 12.210^3/ul Red Blood Count 4.5110^6/ul Hemoglobin 13.6g/dl Hematocrit 40.1% Mean Corpuscular Volume 88.9fl Mean Corpuscular Hemoglobin 30.2pg Mean Corpuscular Hemoglobin Concent 33.9g/dl Red Cell Distribution Width 12.5% Platelet Count 02334^3/UL Mean Platelet Volume 9.5fl Neutrophils % 78.0% Lymphocytes % 11.1% Monocytes % 9.9% Eosinophils % 0.1% Basophils % 0.2% Nucleated Red Blood Cells % 0.0/100WBC Neutrophils # (Manual) 9.610^3/ul Lymphocytes # 1.410^3/ul Monocytes # 1.210^3/ul Eosinophils # 0.010^3/ul Basophils # 0.010^3/ul Nucleated Red Blood Cells # 0.010^3/ul Sodium Level 127mmol/L Potassium Level 4.0mmol/L Chloride Level 87mmol/L Carbon Dioxide Level 28mmol/L Anion Gap 16 Blood Urea Nitrogen 29mg/dl Creatinine 0.95mg/dl Glucose Level 158mg/dl Calcium Level 8.8mg/dl Total Bilirubin 0.5mg/dl Direct Bilirubin 0.00mg/dl Indirect Bilirubin 0.5mg/dl Aspartate Amino Transf (AST/SGOT) 89IU/L Alanine Aminotransferase (ALT/SGPT) 190IU/L Alkaline Phosphatase 102IU/L Troponin I 0.013ng/ml Total Protein 8.0g/dl Albumin 4.2g/dl Globulin 3.80g/dl Albumin/Globulin Ratio 1.10 Lipase 109U/L Bedside Urine pH (LAB) 6.0 Bedside Urine Protein (LAB) 2+ Bedside Urine Glucose (UA) 0.1% Bedside Urine Ketones (LAB) Negative Bedside Urine Blood Trace-intact Bedside Urine Nitrite (LAB) Negative Bedside Urine Leukocyte Esterase (L Negative Current Medications Medications (Trade) Dose Ordered Sig/Verenice Route PRN Reason Start Time Stop Time Status Last Admin Dose Admin Sodium Chloride (NS) 500 ml @ 500 mls/hr Q1H STAT IV 12/19/16 22:22 12/19/16 23:21 DC 12/19/16 23:22 Morphine Sulfate (morphine) 2 mg ONCE STAT IV 12/19/16 22:22 12/19/16 22:24 DC 12/19/16 23:22 Ondansetron HCl 4 mg 4 mg ONCE STAT IV 12/19/16 22:22 12/19/16 22:24 DC 12/19/16 23:22 Sodium Chloride 500 ml @ 500 mls/hr Q1H STAT IV 12/20/16 01:28 12/20/16 02:27 12/20/16 01:46 Azithromycin 250 ml @ 250 mls/hr ONCE STAT IV 12/20/16 01:28 12/20/16 02:27 Ceftriaxone Sodium (Rocephin) 50 ml @ 100 mls/hr ONCE STAT IVPB 12/20/16 01:28 12/20/16 01:57 DC 12/20/16 01:46 Result Diagram: 12/26/16 0523 12/26/16522 Results 24 hrs Laboratory Tests Test 12/26/16 05:23 White Blood Count 10.1 # Red Blood Count 3.94 L Hemoglobin 11.7 L Hematocrit 35.8 L Mean Corpuscular Volume 90.9 Mean Corpuscular Hemoglobin 29.7 Mean Corpuscular Hemoglobin Concent 32.7 Red Cell Distribution Width 13.2 Platelet Count 174 Mean Platelet Volume 9.1 Neutrophils % 75.3 Lymphocytes % 11.2 L Monocytes % 10.7 Eosinophils % 1.8 Basophils % 0.4 Nucleated Red Blood Cells % 0.0 Neutrophils # (Manual) 8 H Lymphocytes # 1.1 Monocytes # 1.1 H Eosinophils # 0.2 Basophils # 0.0 Nucleated Red Blood Cells # 0.0 Sodium Level 135 Potassium Level 4.2 Chloride Level 105 Carbon Dioxide Level 25 Anion Gap 9 # Blood Urea Nitrogen 30 #H Creatinine 1.00 # Glucose Level 116 Calcium Level 8.0 L Medications Medications Current Medications Ceftriaxone Sodium (Rocephin) 50 ml @ 100 mls/hr Q24H IVPB Last administered on 12/26/16 02:42; Admin Dose 100 MLS/HR; Start 12/21/16 at 02:00 Ondansetron HCl (Zofran Inj) 4 mg Q6H PRN IV NAUSEA AND/OR VOMITING; Start at 04:30 Acetaminophen (Tylenol Tab) 650 mg Q6H PRN PO PAIN AND OR ELEVATED TEMP Last administered on 12/24/16 04:42; Admin Dose 650 MG; Start 12/20/16 at 04:30 Atorvastatin Calcium (Lipitor) 20 mg DAILY PO Last administered on 12/26/16 08 :42; Admin Dose 20 MG; Start 12/20/16 at 09:00 Tamoxifen Citrate (Nolvadex) 20 mg DAILY PO Last administered on 12/26/16 09: 03; Admin Dose 20 MG; Start 12/20/16 at 09:00 Donepezil HCl (Aricept) 10 mg HS PO Last administered on 12/25/16 20:44; Admin Dose 10 MG; Start 12/20/16 at 21:00 Memantine (Namenda) 5 mg DAILY PO Last administered on 12/26/16 08:42; Admin Dose 5 MG; Start 12/20/16 at 09:00 Docusate Sodium (Colace) 100 mg BID PRN PO CONSTIPATION; Start 12/21/16 at 14: 30 Bisacodyl (Dulcolax) 10 mg DAILY PRN PO CONSTIPATION; Start 12/21/16 at 14:30 Polyethylene Glycol (Miralax) 17 gm DAILY PO Last administered on 12/25/16 08: 52; Admin Dose 17 GM; Start 12/22/16 at 09:00 Famotidine (Pepcid) 20 mg DAILY PO Last administered on 12/26/16 08:42; Admin Dose 20 MG; Start 12/22/16 at 09:00 Metoprolol Succinate (Toprol Xl) 50 mg DAILY PO Last administered on 12/26/16 08:42; Admin Dose 50 MG; Start 12/24/16 at 09:00 Hydralazine HCl 25 mg 25 mg TID PO Last administered on 12/26/16 12:09; Admin Dose 25 MG; Start 12/25/16 at 13:00 Sodium Chloride (NS) 500 ml @ 50 mls/hr Q10H IV Last administered on 10:00; Admin Dose 50 MLS/HR; Start 12/25/16 at 12:30 Enoxaparin Sodium (Lovenox) 40 mg DAILY SC ; Start 12/27/16 at 09:00 Methylprednisolone (Medrol) 8 mg HS PO ; Start 12/27/16 at 21:00; Stop 12/27/16 at 21:01 Methylprednisolone (Medrol) 4 mg HS PO ; Start 12/28/16 at 21:00; Stop 12/30/16 at 21:01 Methylprednisolone (Medrol) 24 mg ONCE PO Last administered on 12/26/16 18:45 ; Admin Dose 24 MG; Start 12/26/16 at 17:00; Stop 12/26/16 at 23:45 JUANI TOBIN MD Dec 26, 2016 20:09
--- NOTE | 2016-12-26 20:10 | CONS ---
Date/Time of Note Date/Time of Note DATE: 12/26/16 TIME: 20:09 Assessment/Plan Assessment/Plan Chief Complaint/Hosp Course Breast cancer history. history of left mastectomy, and right lumpectomy. KATE CONT TAMOXIFEN Fluid within the endometrial canal having a thickness of 14 mm which has an abnormal finding in a postmenopausal patient. CHECK ENDOVAGINAL US Pneumonia. Constipation UTI with leukocytosis. Hypertension, uncontrolled. The patient has T12 compression fracture, old L5 compression PAIN CONTROL Problems: Consultation Date/Type/Reason Admit Date/Time Dec 20, 2016 at 01:58 [facility] Referring Provider: MATT RYAN MD 24 HR Interval Summary Free Text/Dictation ALL NOTED NO NEW EVENTS Exam/Review of Systems Vital Signs Vitals Vital Signs Date Time Temp Pulse Resp B/P Pulse Ox O2 Delivery O2 Flow Rate FiO2 12/26/16 14:47 98.4 76 18 133/60 96 12/24/16 01:38 Room Air Intake and Output 12/25/16 12/25/16 12/26/16 15:00 23:00 07:00 Intake Total 720 ml 150 ml Output Total 1350 ml 900 ml Balance -630 ml -750 ml Exam GENERAL: This is a fragile, elderly woman who is in no distress. HEENT: Head atraumatic, normocephalic. Sclerae anicteric. Buccal mucosa pink and dry. NECK: Supple. CHEST: Rise symmetrical. Breath sounds diminished at the bases. HEART: S1, S2. ABDOMEN: Positive guarding and tenderness over suprapubic area on palpation EXTREMITIES: Without cyanosis. Results Result Diagram: 12/26/16 0523 12/26/16 0523 Results 24 hrs Laboratory Tests Test 12/26/16 05:23 White Blood Count 10.1 # Red Blood Count 3.94 L Hemoglobin 11.7 L Hematocrit 35.8 L Mean Corpuscular Volume 90.9 Mean Corpuscular Hemoglobin 29.7 Mean Corpuscular Hemoglobin Concent 32.7 Red Cell Distribution Width 13.2 Platelet Count 174 Mean Platelet Volume 9.1 Neutrophils % 75.3 Lymphocytes % 11.2 L Monocytes % 10.7 Eosinophils % 1.8 Basophils % 0.4 Nucleated Red Blood Cells % 0.0 Neutrophils # (Manual) 8 H Lymphocytes # 1.1 Monocytes # 1.1 H Eosinophils # 0.2 Basophils # 0.0 Nucleated Red Blood Cells # 0.0 Sodium Level 135 Potassium Level 4.2 Chloride Level 105 Carbon Dioxide Level 25 Anion Gap 9 # Blood Urea Nitrogen 30 #H Creatinine 1.00 # Glucose Level 116 Calcium Level 8.0 L Medications Medications Current Medications Ceftriaxone Sodium (Rocephin) 50 ml @ 100 mls/hr Q24H IVPB Last administered on 12/26/16 02:42; Admin Dose 100 MLS/HR; Start 12/21/16 at 02:00 Ondansetron HCl (Zofran Inj) 4 mg Q6H PRN IV NAUSEA AND/OR VOMITING; Start at 04:30 Acetaminophen (Tylenol Tab) 650 mg Q6H PRN PO PAIN AND OR ELEVATED TEMP Last administered on 12/24/16 04:42; Admin Dose 650 MG; Start 12/20/16 at 04:30 Atorvastatin Calcium (Lipitor) 20 mg DAILY PO Last administered on 12/26/16 08 :42; Admin Dose 20 MG; Start 12/20/16 at 09:00 Tamoxifen Citrate (Nolvadex) 20 mg DAILY PO Last administered on 12/26/16 09: 03; Admin Dose 20 MG; Start 12/20/16 at 09:00 Donepezil HCl (Aricept) 10 mg HS PO Last administered on 12/25/16 20:44; Admin Dose 10 MG; Start 12/20/16 at 21:00 Memantine (Namenda) 5 mg DAILY PO Last administered on 12/26/16 08:42; Admin Dose 5 MG; Start 12/20/16 at 09:00 Docusate Sodium (Colace) 100 mg BID PRN PO CONSTIPATION; Start 12/21/16 at 14: 30 Bisacodyl (Dulcolax) 10 mg DAILY PRN PO CONSTIPATION; Start 12/21/16 at 14:30 Polyethylene Glycol (Miralax) 17 gm DAILY PO Last administered on 12/25/16 08: 52; Admin Dose 17 GM; Start 12/22/16 at 09:00 Famotidine (Pepcid) 20 mg DAILY PO Last administered on 12/26/16 08:42; Admin Dose 20 MG; Start 12/22/16 at 09:00 Metoprolol Succinate (Toprol Xl) 50 mg DAILY PO Last administered on 12/26/16 08:42; Admin Dose 50 MG; Start 12/24/16 at 09:00 Hydralazine HCl 25 mg 25 mg TID PO Last administered on 12/26/16 12:09; Admin Dose 25 MG; Start 12/25/16 at 13:00 Sodium Chloride (NS) 500 ml @ 50 mls/hr Q10H IV Last administered on 10:00; Admin Dose 50 MLS/HR; Start 12/25/16 at 12:30 Enoxaparin Sodium (Lovenox) 40 mg DAILY SC ; Start 12/27/16 at 09:00 Methylprednisolone (Medrol) 8 mg HS PO ; Start 12/27/16 at 21:00; Stop 12/27/16 at 21:01 Methylprednisolone (Medrol) 4 mg HS PO ; Start 12/28/16 at 21:00; Stop 12/30/16 at 21:01 Methylprednisolone (Medrol) 24 mg ONCE PO Last administered on 12/26/16 18:45 ; Admin Dose 24 MG; Start 12/26/16 at 17:00; Stop 12/26/16 at 23:45 Procedures Procedures [place] [id number] Radiology Main Line: [phone] DIAGNOSTIC IMAGING REPORT Patient: ALAN MALDONADO : 1935 Age: 81 Sex: F MR #: [id number] DOS: 12/19/16 2222 Ordering MD: BRIDGET MASON MD Location: E/R Room/Bed: PROCEDURE: CT ABDOMEN/PELVIS WITHOUT CONTRAST CLINICAL INDICATION: 81-year-old female with abdominal pain. TECHNIQUE: The study was performed utilizing a [employer] VCT 64-slice CT scanner. Direct axial sections were obtained through the abdomen and pelvis without the use of intravenous contrast material. Sagittal and coronal reformations were obtained. One or more of the following dose reduction techniques were utilized: automated exposure control, adjustment of the mA and/ or kV according to patient's size or use of iterative reconstruction technique. The images were reviewed on a PACS workstation. CTD/vol = 15.2 mGy; Total Exam DLP = 791.0 mGy-cm. COMPARISON: CT abdomen/pelvis December 15, 2014. FINDINGS: Cardiomegaly is present. There is minimal bibasilar subsegmental atelectasis. There is no evidence for significant pleural effusion. The liver has a normal size and contour without focal areas of abnormal density. No intrahepatic nor extrahepatic biliary ductal dilatation is seen. The gallbladder is difficult to visualize but appears to be contracted without evidence for calcified stones or pericholecystic fluid. The pancreas is without areas of abnormal attenuation. The spleen is identified and has a normal size without abnormal density. The adrenal glands are unremarkable. The kidneys are without abnormal density. No hydroureteronephrosis nor nephroureterolithiasis is evident. The urinary bladder contains urine. Is mild retained stool throughout the redundant colon without gross bowel obstruction. There are multiple small diverticula identified within the colon predominantly within the sigmoid region without surrounding inflammatory changes. The appendix is visualized and is without abnormal thickening or surrounding inflammatory reaction. The uterus is atrophic with prominent fluid within the endometrial canal measuring up to 14 mm. This is an abnormal finding in a postmenopausal patient. There is no significant free fluid. The aortoiliac vessels are minimally calcified and ectatic without aneurysmal dilatation. Degenerative changes are present throughout the spine. There is a T12 compression fracture with approximately 30 % loss of height containing gas and acute components. There is an old L5 compression fracture with approximately 80% loss of height with evidence for prior kyphoplasty without interval change. There are old fracture deformities involving the right superior/inferior pubic rami. Diffuse osteopenia is present. IMPRESSION: 1. Cardiomegaly. 2. Retained stool within the redundant colon without obstruction. 3. No CT evidence for appendicitis. 4. Sigmoid diverticulosis. 5. Fluid within the endometrial canal having a thickness of 14 mm which has an abnormal finding in a postmenopausal patient. Further evaluation is indicated. 6. Interval development of T12 compression fracture containing gas and acute components with 30% loss of height. 7. Old L5 compression fracture (80%) with prior kyphoplasty. 8. Old right superior/inferior pubic rami compression fractures. 9. Diffuse osteopenia. .Erasmo Lagos MD, Date Time Electronically viewed and signed by .Erasmo Lagos MD, MD on 12/19/2016 23:42 .M/ CC: BRIDGET MASON VERA M MD Dec 26, 2016 20:10
[2016-12-26] MEDS: DONEPEZIL 10 MG TAB PO SCH (20:51)
[2016-12-27] MEDS: CEFTRIAXONE 1 GM/50 ML (PMX) 50 ML IVPB SCH (01:33)
[2016-12-27 02:41] VITALS: BP 148/71; RESP 18
--- NOTE | 2016-12-27 02:56 | PN ---
DATE: 12/26/2016 SUBJECTIVE DATA: Ordered MRI scan has not been done yet because of some mechanical problems with the machine. She is still complaining of pain involving her low back, which is worse with standing up. Medrol Dosepak has been ordered. Dictated By: In Erendira King MD /nayely/rakesh /Document#: [id number]
[2016-12-27 06:09] LABS: BASOPHILS % 0.1 % (0.0-2.0); HEMATOCRIT 37.6 % (37.0-47.0); HEMOGLOBIN 12.3 g/dl (12.0-16.0); LYMPHOCYTES % 9.3 % (15.0-51.0); MEAN CORPUSCULAR HEMOGLOBIN 29.4 pg (29.0-33.0); MEAN CORPUSCULAR HGB CONC 32.7 g/dl (32.0-37.0); MONOCYTE # 0.5 10^3/ul (0.3-0.9); MONOCYTES % 4.5 % (0.0-11.0); NEUTROPHILS % 85.6 % (39.0-77.0); PLATELET COUNT 216 10^3/UL (140-415); RED BLOOD COUNT 4.18 10^6/ul (4.20-5.40); WHITE BLOOD COUNT 10.6 10^3/ul (4.8-10.8)
[2016-12-27 06:37] LABS: CALCIUM 8.3 mg/dl (8.4-10.2); CREATININE 0.72 mg/dl (0.44-1.00); POTASSIUM 4.7 mmol/L (3.5-5.1)
[2016-12-27 07:34] LABS: CANCER ANTIGEN 125 68.7 U/ml (0.0-35.0)
[2016-12-27 08:13] VITALS: BP 157/70; RESP 20
[2016-12-27] MEDS: MEMANTINE 5 MG TAB PO SCH (09:20)
[2016-12-27] MEDS: METOPROLOL (XL) 50 MG TAB PO SCH (09:20)
[2016-12-27] MEDS: ATORVASTATIN 20 MG TAB PO SCH (09:22)
[2016-12-27] MEDS: TAMOXIFEN 10 MG TAB PO SCH (09:23)
[2016-12-27] MEDS: FAMOTIDINE 20 MG TAB PO SCH (09:24)
[2016-12-27] MEDS: ENOXAPARIN 40 MG/0.4 ML SYG SC SCH (09:26)
[2016-12-27] MEDS: METHYLPREDNISOLONE 4 MG TAB PO SCH ×3 (09:39→18:02)
[2016-12-27] MEDS: POLYETHYLENE GLYCOL 17 GM PACKET PO SCH (09:40)
--- NOTE | 2016-12-27 11:26 | RADRPT ---
PROCEDURE: MRI lumbar spine without contrast CLINICAL INDICATION: Back pain TECHNIQUE: An high-resolution MRI of the lumbar spine was performed utilizing the following sequen earle: Sagittal and axial T1 weighted, sagittal and axial T2 weighted, and sagittal fat suppressed T2 . COMPARISON: Correlation abdominal CT 12/19/2016 FINDINGS: Lumbar levoscoliosis. Moderate subacute T12 compression fracture with bone marrow edema and mild retropulsion of the super ior-posterior cortex resulting in mild spinal canal narrowing at T11-12. Severe chronic L5 compression fracture with evidence of prior vertebral augmentation and mild retrop ulsion. The conus medullaris terminates at L1. T12 - L1: Increasing disk height due to the adjacent fracture. There is no significant disk protrusi on, spinal canal or foraminal stenosis. L1 - L2: The disk is preserved in height. There is no significant disk protrusion, spinal canal or foraminal stenosis. L2 - L3: Mild disk height loss. Small disk bulge with mild bilateral foraminal narrowing. No sig nificant spinal canal narrowing. L3 - L4: Mild disk height loss and moderate disk bulge with mild bilateral foraminal narrowing. F acet arthropathy. Borderline, mild spinal canal narrowing. L4 - L5: Increasing disk height due to the adjacent fracture. Retropulsion of the L5 vertebral c ortex and a disk osteophyte complex is seen resulting in narrowing of the lateral recess bilaterally . No significant spinal canal stenosis. Facet arthropathy. Moderate bilateral foraminal stenosis. L5 - S1: Increasing disk height due to the adjacent fracture. Bulging of the posterior disk annul us and facet arthropathy is seen. No significant spinal canal stenosis. Moderate left and mild rig ht foraminal narrowing. Paraspinal soft tissues are unremarkable. IMPRESSION: Lumbar levoscoliosis. Moderate subacute T12 compression fracture with bone marrow edema and mild retropulsion of the super ior-posterior cortex resulting in mild spinal canal narrowing at T11-12. Severe chronic L5 compression fracture with evidence of prior vertebral augmentation and mild retrop ulsion. Lumbar spine degenerative changes are detailed in the findings. RPTAT: AA .Tirsten Bautista MD, MD Date Time Electronically viewed and signed by .Tristen Bautista MD, on 12/27/2016 11:26 .T/
--- NOTE | 2016-12-27 13:08 | CONS ---
Date/Time of Note Date/Time of Note DATE: 12/27/16 TIME: 13:07 Assessment/Plan Assessment/Plan Chief Complaint/Hosp Course Breast cancer history. history of left mastectomy, and right lumpectomy. KATE CONT TAMOXIFEN BACK PAIN WITH T12 compression fracture, old L5 compression fracture. PAIN CONTROL ORTHO Pneumonia. Constipation UTI with leukocytosis. Hypertension, uncontrolled. Problems: Consultation Date/Type/Reason Admit Date/Time Dec 20, 2016 at 01:58 Type of Consultation: [facility] Referring Provider: MATT RYAN MD 24 HR Interval Summary Free Text/Dictation MRI scan has not been done yet because of some mechanical problems with the machine. She is still complaining of pain involving her low back, which is worse with standing up. Medrol Dosepak has been ordered. COUNT REVIEWED Exam/Review of Systems Vital Signs Vitals Vital Signs Date Time Temp Pulse Resp B/P Pulse Ox O2 Delivery O2 Flow Rate FiO2 12/27/16 08:13 97.9 66 20 157/70 97 12/24/16 01:38 Room Air Intake and Output 12/26/16 12/26/16 12/27/16 15:00 23:00 07:00 Intake Total 800 ml 650 ml Output Total 1000 ml 650 ml Balance -200 ml 0 ml Exam Constitutional: alert Head: normocephalic Eyes: nl conjunctiva Neck: supple Respiratory: diminished breath sounds Cardiovascular: regular rate and rhythm Gastrointestinal: soft Results Result Diagram: 12/27/16 0545 12/27/16 0545 Results 24 hrs Laboratory Tests Test 12/27/16 05:45 White Blood Count 10.6 Red Blood Count 4.18 L Hemoglobin 12.3 Hematocrit 37.6 Mean Corpuscular Volume 90.0 Mean Corpuscular Hemoglobin 29.4 Mean Corpuscular Hemoglobin Concent 32.7 Red Cell Distribution Width 13.0 Platelet Count 216 # Mean Platelet Volume 9.0 Neutrophils % 85.6 H Lymphocytes % 9.3 L Monocytes % 4.5 Eosinophils % 0.0 Basophils % 0.1 Nucleated Red Blood Cells % 0.0 Neutrophils # (Manual) 9 H Lymphocytes # 1.0 Monocytes # 0.5 Eosinophils # 0.0 Basophils # 0.0 Nucleated Red Blood Cells # 0.0 Sodium Level 133 L Potassium Level 4.7 Chloride Level 103 Carbon Dioxide Level 25 Anion Gap 10 Blood Urea Nitrogen 21 H Creatinine 0.72 Glucose Level 145 Calcium Level 8.3 L Carcinoembryonic Antigen 5.0 CA 125 Antigen 68.7 H Medications Medications Current Medications Ceftriaxone Sodium (Rocephin) 50 ml @ 100 mls/hr Q24H IVPB Last administered on 12/27/16 01:33; Admin Dose 100 MLS/HR; Start 12/21/16 at 02:00 Ondansetron HCl (Zofran Inj) 4 mg Q6H PRN IV NAUSEA AND/OR VOMITING; Start at 04:30 Acetaminophen (Tylenol Tab) 650 mg Q6H PRN PO PAIN AND OR ELEVATED TEMP Last administered on 12/24/16 04:42; Admin Dose 650 MG; Start 12/20/16 at 04:30 Atorvastatin Calcium (Lipitor) 20 mg DAILY PO Last administered on 12/27/16 09 :22; Admin Dose 20 MG; Start 12/20/16 at 09:00 Tamoxifen Citrate (Nolvadex) 20 mg DAILY PO Last administered on 12/27/16 09: 23; Admin Dose 20 MG; Start 12/20/16 at 09:00 Donepezil HCl (Aricept) 10 mg HS PO Last administered on 12/26/16 20:51; Admin Dose 10 MG; Start 12/20/16 at 21:00 Memantine (Namenda) 5 mg DAILY PO Last administered on 12/27/16 09:20; Admin Dose 5 MG; Start 12/20/16 at 09:00 Docusate Sodium (Colace) 100 mg BID PRN PO CONSTIPATION; Start 12/21/16 at 14: 30 Bisacodyl (Dulcolax) 10 mg DAILY PRN PO CONSTIPATION; Start 12/21/16 at 14:30 Polyethylene Glycol (Miralax) 17 gm DAILY PO Last administered on 12/27/16 09: 40; Admin Dose 17 GM; Start 12/22/16 at 09:00 Famotidine (Pepcid) 20 mg DAILY PO Last administered on 12/27/16 09:24; Admin Dose 20 MG; Start 12/22/16 at 09:00 Metoprolol Succinate (Toprol Xl) 50 mg DAILY PO Last administered on 12/27/16 09:20; Admin Dose 50 MG; Start 12/24/16 at 09:00 Hydralazine HCl 25 mg 25 mg TID PO Last administered on 12/27/16 12:40; Admin Dose 25 MG; Start 12/25/16 at 13:00 Sodium Chloride (NS) 500 ml @ 50 mls/hr Q10H IV Last administered on 10:00; Admin Dose 50 MLS/HR; Start 12/25/16 at 12:30 Enoxaparin Sodium (Lovenox) 40 mg DAILY SC Last administered on 12/27/16 09:26 ; Admin Dose 40 MG; Start 12/27/16 at 09:00 Methylprednisolone (Medrol) 8 mg HS PO ; Start 12/27/16 at 21:00; Stop 12/27/16 at 21:01 Methylprednisolone (Medrol) 4 mg HS PO ; Start 12/28/16 at 21:00; Stop 12/30/16 at 21:01 JUANI TOBIN MD Dec 27, 2016 13:07
--- NOTE | 2016-12-27 14:42 | PN ---
Date/Time of Note Date/Time of Note DATE: 12/27/16 TIME: 14:38 Assessment/Plan VTE Prophylaxis VTE Prophylaxis Intervention: LMWH, SCD's Lines/Catheters IV Catheter Type (from Nrsg): Peripheral IV Urinary Cath still in place: Yes Reason Cath still needed: urinary retention Assessment/Plan Chief Complaint/Hosp Course Physical exam Head: atraumatic, normocephalic Respiratory: diminished breath sounds Cardiovascular: regular rate and rhythm Abdomen: suprapubic fullness resolved Ext : no edema Assessment 81 y/o with 1 RICHARD resolved likely secondary urinary obstruction s/p Hadley placement on Cr 3.8>1.0 today 2 Back pain with hx compression # pending MRI 2. Breast cancer history. on Tamoxifen 3 Elevated CA 125> pending U/S pelvis 3. Constipation 4. E UTI with leukocytosis. 5. Hypertension, controlled 6. The patient has T12 compression fracture, old L5 compression with back pain 7 Alzheimer on meds Plan 1. MRI Lumbar spine today 2 U/S pelvis today 3 BP control : c/w hydralzine 25 tid and c.w MTP 4 Medrol dose pack per Ortho 5 Pain control 6 Rocephin for UTI > stopped today 7 GI/DVT prophylaxsis Problems: Subjective 24 Hr Interval Summary Free Text/Dictation +Back pain> MRI due today Exam/Review of Systems Vital Signs Vitals Vital Signs Date Time Temp Pulse Resp B/P Pulse Ox O2 Delivery O2 Flow Rate FiO2 12/27/16 08:13 97.9 66 20 157/70 97 12/24/16 01:38 Room Air Intake and Output 12/26/16 12/26/16 12/27/16 15:00 23:00 07:00 Intake Total 800 ml 650 ml Output Total 1000 ml 650 ml Balance -200 ml 0 ml Results Result Diagram: 12/27/16 0545 12/27/16 0545 Results 24 hrs Laboratory Tests Test 12/27/16 05:45 White Blood Count 10.6 Red Blood Count 4.18 L Hemoglobin 12.3 Hematocrit 37.6 Mean Corpuscular Volume 90.0 Mean Corpuscular Hemoglobin 29.4 Mean Corpuscular Hemoglobin Concent 32.7 Red Cell Distribution Width 13.0 Platelet Count 216 # Mean Platelet Volume 9.0 Neutrophils % 85.6 H Lymphocytes % 9.3 L Monocytes % 4.5 Eosinophils % 0.0 Basophils % 0.1 Nucleated Red Blood Cells % 0.0 Neutrophils # (Manual) 9 H Lymphocytes # 1.0 Monocytes # 0.5 Eosinophils # 0.0 Basophils # 0.0 Nucleated Red Blood Cells # 0.0 Sodium Level 133 L Potassium Level 4.7 Chloride Level 103 Carbon Dioxide Level 25 Anion Gap 10 Blood Urea Nitrogen 21 H Creatinine 0.72 Glucose Level 145 Calcium Level 8.3 L Carcinoembryonic Antigen 5.0 CA 125 Antigen 68.7 H Medications Medications Current Medications Ceftriaxone Sodium (Rocephin) 50 ml @ 100 mls/hr Q24H IVPB Last administered on 12/27/16 01:33; Admin Dose 100 MLS/HR; Start 12/21/16 at 02:00 Ondansetron HCl (Zofran Inj) 4 mg Q6H PRN IV NAUSEA AND/OR VOMITING; Start at 04:30 Acetaminophen (Tylenol Tab) 650 mg Q6H PRN PO PAIN AND OR ELEVATED TEMP Last administered on 12/24/16 04:42; Admin Dose 650 MG; Start 12/20/16 at 04:30 Atorvastatin Calcium (Lipitor) 20 mg DAILY PO Last administered on 12/27/16 09 :22; Admin Dose 20 MG; Start 12/20/16 at 09:00 Tamoxifen Citrate (Nolvadex) 20 mg DAILY PO Last administered on 12/27/16 09: 23; Admin Dose 20 MG; Start 12/20/16 at 09:00 Donepezil HCl (Aricept) 10 mg HS PO Last administered on 12/26/16 20:51; Admin Dose 10 MG; Start 12/20/16 at 21:00 Memantine (Namenda) 5 mg DAILY PO Last administered on 12/27/16 09:20; Admin Dose 5 MG; Start 12/20/16 at 09:00 Docusate Sodium (Colace) 100 mg BID PRN PO CONSTIPATION; Start 12/21/16 at 14: 30 Bisacodyl (Dulcolax) 10 mg DAILY PRN PO CONSTIPATION; Start 12/21/16 at 14:30 Polyethylene Glycol (Miralax) 17 gm DAILY PO Last administered on 12/27/16 09: 40; Admin Dose 17 GM; Start 12/22/16 at 09:00 Famotidine (Pepcid) 20 mg DAILY PO Last administered on 12/27/16 09:24; Admin Dose 20 MG; Start 12/22/16 at 09:00 Metoprolol Succinate (Toprol Xl) 50 mg DAILY PO Last administered on 12/27/16 09:20; Admin Dose 50 MG; Start 12/24/16 at 09:00 Hydralazine HCl 25 mg 25 mg TID PO Last administered on 12/27/16 12:40; Admin Dose 25 MG; Start 12/25/16 at 13:00 Sodium Chloride (NS) 500 ml @ 50 mls/hr Q10H IV Last administered on 10:00; Admin Dose 50 MLS/HR; Start 12/25/16 at 12:30 Enoxaparin Sodium (Lovenox) 40 mg DAILY SC Last administered on 12/27/16 09:26 ; Admin Dose 40 MG; Start 12/27/16 at 09:00 Methylprednisolone (Medrol) 8 mg HS PO ; Start 12/27/16 at 21:00; Stop 12/27/16 at 21:01 Methylprednisolone (Medrol) 4 mg HS PO ; Start 12/28/16 at 21:00; Stop 12/30/16 at 21:01 KRISTOPHER MOLINA MD Dec 27, 2016 14:42
[2016-12-27 16:03] VITALS: BP 141/64; RESP 18
--- NOTE | 2016-12-27 19:29 | RADRPT ---
PROCEDURE: US Pelvis. CLINICAL INDICATION: Abnormal CT demonstrating. TECHNIQUE: Multiple transabdominal sonographic images of the pelvis were obtained. Transvaginal im aging unable to be performed. COMPARISON: CT abdomen/pelvis 12/19/2016. MRI L-spine 12/27/2016. FINDINGS: The uterus is anteverted in position and measures 8.9 x 2.0 x 3.7 cm (34 cc). The endometrial compl ex measures 8 mm in thickness and is somewhat heterogeneous in echogenicity. The thickness of the en dometrium appears grossly unchanged when correlated with The endometrial myometrial junction appears to be well maintained. The cervix is unremarkable. There is no free pelvic fluid. The ovaries are not visualized. The adnexa are unremarkable. IMPRESSION: Thickened heterogeneous endometrium. Clinical follow-up and to and advised. RPTAT: HLST .Ara Escobedo MD, Date Time Electronically viewed and signed by .Ara Escobedo MD, on 12/27/2016 19:28 .T/
[2016-12-27 19:56] VITALS: BP 124/58; RESP 18
--- NOTE | 2016-12-27 20:28 | PN ---
DATE: 12/27/2016 SUBJECTIVE DATA: No events overnight per report. The patient is awake, lying comfortably in bed. She is afebrile. LABORATORY AND DIAGNOSTIC DATA: WBC today 10.6; neutrophils 85.6. BUN 21, creatinine 0.72. PHYSICAL EXAMINATION: GENERAL: Fragile, wasted, well-developed elderly woman who is in no distress. HEENT: Head atraumatic, normocephalic. Sclerae anicteric. Buccal mucosa dry. NECK: Supple. CHEST: Rise symmetrical. Breath sounds diminished at the bases. HEART: S1, S2. ABDOMEN: Soft, bowel sounds present. EXTREMITIES: No cyanosis. ASSESSMENT: 1. Status post urinary tract infection. 2. Resolved renal failure possibly secondary to significant urinary retention, Hadley placed. 3. History of right breast mastectomy. 4. Cachexia. 5. Multiple compression fractures, possible spinal stenosis, on steroids per ortho recommendations. PLAN: The patient remains stable. Completing antibiotics. Continue present care as per primary team consultants. Discontinue Rocephin in a.m. Dictated By: Cristiano Goldsmith NP /nayely/halina /Document#: [id number]
[2016-12-27] MEDS ORDERED: METHYLPREDNISOLONE 4 MG TAB PO SCH (21:00)
[2016-12-27] MEDS: DONEPEZIL 10 MG TAB PO SCH (21:29)
[2016-12-28 02:07] VITALS: BP 120/59; RESP 18
[2016-12-28 06:24] LABS: CALCIUM 8.8 mg/dl (8.4-10.2); CREATININE 0.76 mg/dl (0.44-1.00); POTASSIUM 4.8 mmol/L (3.5-5.1)
[2016-12-28 07:44] VITALS: BP 132/61; RESP 18
[2016-12-28] MEDS: POLYETHYLENE GLYCOL 17 GM PACKET PO SCH (08:04)
[2016-12-28] MEDS: METOPROLOL (XL) 50 MG TAB PO SCH (08:05)
[2016-12-28] MEDS: FAMOTIDINE 20 MG TAB PO SCH (08:05)
[2016-12-28] MEDS: METHYLPREDNISOLONE 4 MG TAB PO SCH ×4 (08:05→21:19)
[2016-12-28] MEDS: ATORVASTATIN 20 MG TAB PO SCH (08:06)
[2016-12-28] MEDS: MEMANTINE 5 MG TAB PO SCH (08:06)
[2016-12-28] MEDS: ENOXAPARIN 40 MG/0.4 ML SYG SC SCH (08:12)
[2016-12-28] MEDS: TAMOXIFEN 10 MG TAB PO SCH (08:13)
[2016-12-28] MEDS: ACETAMINOPHEN 325 MG TAB PO PRN (08:17)
[2016-12-28 14:24] VITALS: BP 110/53; RESP 18
--- NOTE | 2016-12-28 14:29 | CONS ---
Date/Time of Note Date/Time of Note DATE: 12/28/16 TIME: 14:27 Assessment/Plan Assessment/Plan Chief Complaint/Hosp Course No acute changes overnight. The patient is lying comfortably in bed. No fevers PHYSICAL EXAMINATION: GENERAL: Fragile, wasted, well-developed elderly woman who is in no distress. HEENT: Head atraumatic, normocephalic. Sclerae anicteric. Buccal mucosa dry. NECK: Supple. CHEST: Rise symmetrical. Breath sounds diminished at the bases. HEART: S1, S2. ABDOMEN: Soft, bowel sounds present. EXTREMITIES: No cyanosis. ASSESSMENT: 1. Status post urinary tract infection. 2. Resolved renal failure possibly secondary to significant urinary retention, Hadley placed. 3. History of right breast mastectomy. 4. Cachexia. 5. Multiple compression fractures, possible spinal stenosis, on steroids per ortho recommendations. PLAN: The patient remains stable. Off abx, continue present care, aspiration precautions, [place] cx prn [facility] staff Problems: Consultation Date/Type/Reason Admit Date/Time Dec 20, 2016 at 01:58 Type of Consultation: id Referring Provider: MATT RYAN MD Exam/Review of Systems Vital Signs Vitals Vital Signs Date Time Temp Pulse Resp B/P Pulse Ox O2 Delivery O2 Flow Rate FiO2 12/28/16 14:24 98.0 76 18 110/53 94 Intake and Output 12/27/16 12/27/16 12/28/16 15:00 23:00 07:00 Intake Total 960 ml 1600 ml Output Total 800 ml 2550 ml Balance 160 ml -950 ml Results Result Diagram: 12/27/16 0545 12/28/16 0531 Results 24 hrs Laboratory Tests Test 12/28/16 05:31 Sodium Level 134 L Potassium Level 4.8 Chloride Level 102 Carbon Dioxide Level 27 Anion Gap 10 Blood Urea Nitrogen 22 H Creatinine 0.76 Glucose Level 154 Calcium Level 8.8 Medications Medications Current Medications Ondansetron HCl (Zofran Inj) 4 mg Q6H PRN IV NAUSEA AND/OR VOMITING; Start at 04:30 Acetaminophen (Tylenol Tab) 650 mg Q6H PRN PO PAIN AND OR ELEVATED TEMP Last administered on 12/28/16 08:17; Admin Dose 650 MG; Start 12/20/16 at 04:30 Atorvastatin Calcium (Lipitor) 20 mg DAILY PO Last administered on 12/28/16 08 :06; Admin Dose 20 MG; Start 12/20/16 at 09:00 Tamoxifen Citrate (Nolvadex) 20 mg DAILY PO Last administered on 12/28/16 08: 13; Admin Dose 20 MG; Start 12/20/16 at 09:00 Donepezil HCl (Aricept) 10 mg HS PO Last administered on 12/27/16 21:29; Admin Dose 10 MG; Start 12/20/16 at 21:00 Memantine (Namenda) 5 mg DAILY PO Last administered on 12/28/16 08:06; Admin Dose 5 MG; Start 12/20/16 at 09:00 Docusate Sodium (Colace) 100 mg BID PRN PO CONSTIPATION; Start 12/21/16 at 14: 30 Bisacodyl (Dulcolax) 10 mg DAILY PRN PO CONSTIPATION; Start 12/21/16 at 14:30 Polyethylene Glycol (Miralax) 17 gm DAILY PO Last administered on 12/28/16 08: 04; Admin Dose 17 GM; Start 12/22/16 at 09:00 Famotidine (Pepcid) 20 mg DAILY PO Last administered on 12/28/16 08:05; Admin Dose 20 MG; Start 12/22/16 at 09:00 Metoprolol Succinate (Toprol Xl) 50 mg DAILY PO Last administered on 12/28/16 08:05; Admin Dose 50 MG; Start 12/24/16 at 09:00 Hydralazine HCl (Apresoline) 25 mg TID PO Last administered on 12/28/16 12:33 ; Admin Dose 25 MG; Start 12/25/16 at 13:00 Enoxaparin Sodium (Lovenox) 40 mg DAILY SC Last administered on 12/28/16 08:12 ; Admin Dose 40 MG; Start 12/27/16 at 09:00 Methylprednisolone (Medrol) 4 mg HS PO ; Start 12/28/16 at 21:00; Stop 12/30/16 at 21:01 GIFTY LARA NP Dec 28, 2016 14:29
[2016-12-28] MEDS ORDERED: traMADol 50 MG TAB PO PRN (15:30)
--- NOTE | 2016-12-28 16:45 | PN ---
Date/Time of Note Date/Time of Note DATE: 12/28/16 TIME: 16:41 Assessment/Plan VTE Prophylaxis VTE Prophylaxis Intervention: LMWH Lines/Catheters IV Catheter Type (from Nrsg): Saline Lock Urinary Cath still in place: Yes Reason Cath still needed: urinary retention Assessment/Plan Chief Complaint/Hosp Course Physical exam Head: atraumatic, normocephalic Respiratory: diminished breath sounds Cardiovascular: regular rate and rhythm Abdomen: suprapubic fullness resolved Ext : no edema Assessment 81 y/o with 1 RICHARD resolved likely secondary urinary obstruction s/p Hadley placement on Cr 3.8>1.0>0.76 today 2 Back pain with hx compression # with MRI with compression # and spinal stenosis 2. Breast cancer history. on Tamoxifen 3 Elevated CA 125> pending U/S pelvis> thickening of endometrium 3. Constipation>resolved 4. E UTI with leukocytosis. 5. Hypertension, controlled 6. The patient has T12 compression fracture, old L5 compression with back pain 7 Alzheimer on meds Plan 1. Spoke to Ortho> pain control+ dose pack, if pain not controlled then epidural which is not done here 2 .PT 3 BP control and c.w MTP 4 Medrol dose pack per Ortho 5 Pain control with ultra,/norco 6 Rocephin for UTI > stopped 7 GI/DVT prophylaxsis 8 . Possible d/c tmw Problems: Subjective 24 Hr Interval Summary Free Text/Dictation Pain in the back worse with sitting up and better with lying down Exam/Review of Systems Vital Signs Vitals Vital Signs Date Time Temp Pulse Resp B/P Pulse Ox O2 Delivery O2 Flow Rate FiO2 12/28/16 14:24 98.0 76 18 110/53 94 Intake and Output 12/27/16 12/27/16 12/28/16 15:00 23:00 07:00 Intake Total 960 ml 1600 ml Output Total 800 ml 2550 ml Balance 160 ml -950 ml Results Result Diagram: 12/27/16 0545 12/28/16 0531 Results 24 hrs Laboratory Tests Test 12/28/16 05:31 Sodium Level 134 L Potassium Level 4.8 Chloride Level 102 Carbon Dioxide Level 27 Anion Gap 10 Blood Urea Nitrogen 22 H Creatinine 0.76 Glucose Level 154 Calcium Level 8.8 Medications Medications Current Medications Ondansetron HCl (Zofran Inj) 4 mg Q6H PRN IV NAUSEA AND/OR VOMITING; Start 8/ 16/17 at 04:30 Acetaminophen (Tylenol Tab) 650 mg Q6H PRN PO PAIN AND OR ELEVATED TEMP Last administered on 12/28/16 08:17; Admin Dose 650 MG; Start 12/20/16 at 04:30 Atorvastatin Calcium (Lipitor) 20 mg DAILY PO Last administered on 12/28/16 08 :06; Admin Dose 20 MG; Start 12/20/16 at 09:00 Tamoxifen Citrate (Nolvadex) 20 mg DAILY PO Last administered on 12/28/16 08: 13; Admin Dose 20 MG; Start 12/20/16 at 09:00 Donepezil HCl (Aricept) 10 mg HS PO Last administered on 12/27/16 21:29; Admin Dose 10 MG; Start 12/20/16 at 21:00 Memantine (Namenda) 5 mg DAILY PO Last administered on 12/28/16 08:06; Admin Dose 5 MG; Start 12/20/16 at 09:00 Docusate Sodium (Colace) 100 mg BID PRN PO CONSTIPATION; Start 12/21/16 at 14: 30 Bisacodyl (Dulcolax) 10 mg DAILY PRN PO CONSTIPATION; Start 12/21/16 at 14:30 Polyethylene Glycol (Miralax) 17 gm DAILY PO Last administered on 12/28/16 08: 04; Admin Dose 17 GM; Start 12/22/16 at 09:00 Famotidine (Pepcid) 20 mg DAILY PO Last administered on 12/28/16 08:05; Admin Dose 20 MG; Start 12/22/16 at 09:00 Metoprolol Succinate (Toprol Xl) 50 mg DAILY PO Last administered on 12/28/16 08:05; Admin Dose 50 MG; Start 12/24/16 at 09:00 Hydralazine HCl (Apresoline) 25 mg TID PO Last administered on 12/28/16 12:33 ; Admin Dose 25 MG; Start 12/25/16 at 13:00 Enoxaparin Sodium (Lovenox) 40 mg DAILY SC Last administered on 12/28/16 08:12 ; Admin Dose 40 MG; Start 12/27/16 at 09:00 Methylprednisolone (Medrol) 4 mg HS PO ; Start 12/28/16 at 21:00; Stop 12/30/16 at 21:01 Acetaminophen/ Hydrocodone Bitart ([place] (5/325)) 1 tab Q4H PRN PO pain; Start 12/28/16 at 15:30 Tramadol HCl (Ultram) 50 mg Q6H PRN PO pain; Start 12/28/16 at 15:30 KRISTOPHER MOLINA MD Dec 28, 2016 16:45
[2016-12-28] MEDS: HYDROCODONE/APAP (5/325) TAB PO PRN (17:37)
[2016-12-28 20:00] VITALS: BP 116/55; RESP 18
[2016-12-28] MEDS: DONEPEZIL 10 MG TAB PO SCH (21:19)
--- NOTE | 2016-12-28 23:24 | CONS ---
Date/Time of Note Date/Time of Note DATE: 12/28/16 TIME: 23:24 Assessment/Plan Assessment/Plan Chief Complaint/Hosp Course Breast cancer history. history of left mastectomy, and right lumpectomy. KATE CONT TAMOXIFEN BACK PAIN WITH T12 compression fracture, old L5 compression fracture. PAIN CONTROL ORTHO Pneumonia. Constipation UTI with leukocytosis. Hypertension, uncontrolled. Problems: Consultation Date/Type/Reason Admit Date/Time Dec 20, 2016 at 01:58 [facility] Referring Provider: MATT RYAN MD 24 HR Interval Summary Free Text/Dictation ALL NOTED + BACK PAIN Exam/Review of Systems Vital Signs Vitals Vital Signs Date Time Temp Pulse Resp B/P Pulse Ox O2 Delivery O2 Flow Rate FiO2 12/28/16 20:00 98.3 69 18 116/55 93 Intake and Output 12/27/16 12/27/16 12/28/16 15:00 23:00 07:00 Intake Total 960 ml 1600 ml Output Total 800 ml 2550 ml Balance 160 ml -950 ml Exam pale Constitutional: alert Head: normocephalic Eyes: nl conjunctiva Neck: supple Respiratory: diminished breath sounds Cardiovascular: regular rate and rhythm Gastrointestinal: soft Results Result Diagram: 12/27/16 0545 12/28/16 0531 Results 24 hrs Laboratory Tests Test 12/28/16 05:31 Sodium Level 134 L Potassium Level 4.8 Chloride Level 102 Carbon Dioxide Level 27 Anion Gap 10 Blood Urea Nitrogen 22 H Creatinine 0.76 Glucose Level 154 Calcium Level 8.8 Medications Medications Current Medications Ondansetron HCl (Zofran Inj) 4 mg Q6H PRN IV NAUSEA AND/OR VOMITING; Start at 04:30 Acetaminophen (Tylenol Tab) 650 mg Q6H PRN PO PAIN AND OR ELEVATED TEMP Last administered on 12/28/16 08:17; Admin Dose 650 MG; Start 12/20/16 at 04:30 Atorvastatin Calcium (Lipitor) 20 mg DAILY PO Last administered on 12/28/16 08 :06; Admin Dose 20 MG; Start 12/20/16 at 09:00 Tamoxifen Citrate (Nolvadex) 20 mg DAILY PO Last administered on 12/28/16 08: 13; Admin Dose 20 MG; Start 12/20/16 at 09:00 Donepezil HCl (Aricept) 10 mg HS PO Last administered on 12/28/16 21:19; Admin Dose 10 MG; Start 12/20/16 at 21:00 Memantine (Namenda) 5 mg DAILY PO Last administered on 12/28/16 08:06; Admin Dose 5 MG; Start 12/20/16 at 09:00 Docusate Sodium (Colace) 100 mg BID PRN PO CONSTIPATION; Start 12/21/16 at 14: 30 Bisacodyl (Dulcolax) 10 mg DAILY PRN PO CONSTIPATION; Start 12/21/16 at 14:30 Polyethylene Glycol (Miralax) 17 gm DAILY PO Last administered on 12/28/16 08: 04; Admin Dose 17 GM; Start 12/22/16 at 09:00 Famotidine (Pepcid) 20 mg DAILY PO Last administered on 12/28/16 08:05; Admin Dose 20 MG; Start 12/22/16 at 09:00 Metoprolol Succinate (Toprol Xl) 50 mg DAILY PO Last administered on 12/28/16 08:05; Admin Dose 50 MG; Start 12/24/16 at 09:00 Enoxaparin Sodium (Lovenox) 40 mg DAILY SC Last administered on 12/28/16 08:12 ; Admin Dose 40 MG; Start 12/27/16 at 09:00 Methylprednisolone (Medrol) 4 mg HS PO Last administered on 12/28/16 21:19; Admin Dose 4 MG; Start 12/28/16 at 21:00; Stop 12/30/16 at 21:01 Acetaminophen/ Hydrocodone Bitart ([place] (5/325)) 1 tab Q4H PRN PO pain Last administered on 12/28/16 17:37; Admin Dose 1 TAB; Start 12/28/16 at 15:30 Tramadol HCl (Ultram) 50 mg Q6H PRN PO pain; Start 12/28/16 at 15:30 JUANI TOBIN MD Dec 28, 2016 23:24
[2016-12-29 02:00] VITALS: BP 124/58; RESP 20
[2016-12-29 06:38] LABS: CALCIUM 8.9 mg/dl (8.4-10.2); CREATININE 0.83 mg/dl (0.44-1.00); POTASSIUM 4.9 mmol/L (3.5-5.1)
[2016-12-29 07:52] VITALS: BP 118/58; RESP 18
[2016-12-29] MEDS: HYDROCODONE/APAP (5/325) TAB PO PRN ×2 (08:13→18:01)
[2016-12-29] MEDS: ATORVASTATIN 20 MG TAB PO SCH (08:13)
[2016-12-29] MEDS: METHYLPREDNISOLONE 4 MG TAB PO SCH ×3 (08:13→20:52)
[2016-12-29] MEDS: FAMOTIDINE 20 MG TAB PO SCH (08:13)
[2016-12-29] MEDS: MEMANTINE 5 MG TAB PO SCH (08:14)
[2016-12-29] MEDS: POLYETHYLENE GLYCOL 17 GM PACKET PO SCH (08:14)
[2016-12-29] MEDS: METOPROLOL (XL) 50 MG TAB PO SCH (08:16)
[2016-12-29] MEDS: ENOXAPARIN 40 MG/0.4 ML SYG SC SCH (08:24)
[2016-12-29] MEDS: TAMOXIFEN 10 MG TAB PO SCH (08:24)
--- NOTE | 2016-12-29 12:06 | PN ---
MARIA M UGARTEA 12/29/16 1206: Date/Time of Note Date/Time of Note DATE: 12/29/16 TIME: 12:04 Assessment/Plan VTE Prophylaxis VTE Prophylaxis Intervention: SCD's Lines/Catheters IV Catheter Type (from Nrsg): Saline Lock Urinary Cath still in place: Yes Reason Cath still needed: urinary retention Assessment/Plan Chief Complaint/Hosp Course 1. Pneumonia. 2. Breast cancer history. 3. Constipation 4. UTI with leukocytosis. 5. Hypertension, uncontrolled. 6. The patient has T12 compression fracture, old L5 compression fracture. Problems: Assessment/Plan 1. Pain control 2. Physical therapy 3. Keep marinelli catheter 4. Cortisone shot for pain pending, case management involved Subjective 24 Hr Interval Summary Genitourinary: other (marinelli) Musculoskeletal: back pain, restricted range of motion Exam/Review of Systems Vital Signs Vitals Vital Signs Date Time Temp Pulse Resp B/P Pulse Ox O2 Delivery O2 Flow Rate FiO2 12/29/16 07:52 97.3 63 18 118/58 92 Intake and Output 12/28/16 12/28/16 12/29/16 15:00 23:00 07:00 Intake Total 720 ml 100 ml Output Total 900 ml 100 ml Balance -180 ml 0 ml Exam pale Constitutional: alert Head: normocephalic Eyes: nl conjunctiva Neck: supple Respiratory: diminished breath sounds Cardiovascular: regular rate and rhythm Gastrointestinal: soft Results Result Diagram: 12/27/16 0545 12/29/16 0526 Results 24 hrs Laboratory Tests Test 12/29/16 05:26 Sodium Level 137 Potassium Level 4.9 Chloride Level 100 Carbon Dioxide Level 28 Anion Gap 14 Blood Urea Nitrogen 29 H Creatinine 0.83 Glucose Level 137 Calcium Level 8.9 Medications Medications Current Medications Ondansetron HCl (Zofran Inj) 4 mg Q6H PRN IV NAUSEA AND/OR VOMITING; Start at 04:30 Acetaminophen (Tylenol Tab) 650 mg Q6H PRN PO PAIN AND OR ELEVATED TEMP Last administered on 12/28/16 08:17; Admin Dose 650 MG; Start 12/20/16 at 04:30 Atorvastatin Calcium (Lipitor) 20 mg DAILY PO Last administered on 12/29/16 08 :13; Admin Dose 20 MG; Start 12/20/16 at 09:00 Tamoxifen Citrate (Nolvadex) 20 mg DAILY PO Last administered on 12/29/16 08: 24; Admin Dose 20 MG; Start 12/20/16 at 09:00 Donepezil HCl (Aricept) 10 mg HS PO Last administered on 12/28/16 21:19; Admin Dose 10 MG; Start 12/20/16 at 21:00 Memantine (Namenda) 5 mg DAILY PO Last administered on 12/29/16 08:14; Admin Dose 5 MG; Start 12/20/16 at 09:00 Docusate Sodium (Colace) 100 mg BID PRN PO CONSTIPATION; Start 12/21/16 at 14: 30 Bisacodyl (Dulcolax) 10 mg DAILY PRN PO CONSTIPATION; Start 12/21/16 at 14:30 Polyethylene Glycol (Miralax) 17 gm DAILY PO Last administered on 12/29/16 08: 14; Admin Dose 17 GM; Start 12/22/16 at 09:00 Famotidine (Pepcid) 20 mg DAILY PO Last administered on 12/29/16 08:13; Admin Dose 20 MG; Start 12/22/16 at 09:00 Metoprolol Succinate (Toprol Xl) 50 mg DAILY PO Last administered on 12/29/16 08:16; Admin Dose 50 MG; Start 12/24/16 at 09:00 Enoxaparin Sodium (Lovenox) 40 mg DAILY SC Last administered on 12/29/16 08:24 ; Admin Dose 40 MG; Start 12/27/16 at 09:00 Methylprednisolone (Medrol) 4 mg HS PO Last administered on 12/28/16 21:19; Admin Dose 4 MG; Start 12/28/16 at 21:00; Stop 12/30/16 at 21:01 Acetaminophen/ Hydrocodone Bitart ([place] (5/325)) 1 tab Q4H PRN PO pain Last administered on 12/29/16 08:13; Admin Dose 1 TAB; Start 12/28/16 at 15:30 Tramadol HCl (Ultram) 50 mg Q6H PRN PO pain; Start 12/28/16 at 15:30 KRISTOPHER MOLINA MD 12/29/16 1511: Assessment/Plan Assessment/Plan Assessment/Plan If Pain is not controlled, pt will need Epidural shot which is not done in this hospital ; will have to arrange with car rental agency manager Outpatient vs Inpatient basis Exam/Review of Systems Results Result Diagram: 12/27/16 0545 12/29/16 0526 COLT UGARTE Dec 29, 2016 12:06 KRISTOPHER MOLINA MD Dec 29, 2016 15:11
[2016-12-29 19:35] VITALS: BP 116/57; RESP 19
--- NOTE | 2016-12-29 20:08 | CONS ---
Date/Time of Note Date/Time of Note DATE: 12/29/16 TIME: 20:07 Assessment/Plan Assessment/Plan Chief Complaint/Hosp Course Breast cancer history. history of left mastectomy, and right lumpectomy. KATE CONT TAMOXIFEN BACK PAIN WITH T12 compression fracture, old L5 compression fracture. PAIN CONTROL ORTHO Pneumonia. Constipation UTI with leukocytosis. Hypertension, uncontrolled. Problems: Consultation Date/Type/Reason Admit Date/Time Dec 20, 2016 at 01:58 [facility] Referring Provider: MATT RYAN MD 24 HR Interval Summary Free Text/Dictation ALL NOTED + BACK PAIN Exam/Review of Systems Vital Signs Vitals Vital Signs Date Time Temp Pulse Resp B/P Pulse Ox O2 Delivery O2 Flow Rate FiO2 12/29/16 19:35 97.9 70 19 116/57 93 Intake and Output 12/28/16 12/28/16 12/29/16 15:00 23:00 07:00 Intake Total 720 ml 100 ml Output Total 900 ml 100 ml Balance -180 ml 0 ml Exam pale Constitutional: alert Head: normocephalic Eyes: nl conjunctiva Neck: supple Respiratory: diminished breath sounds Cardiovascular: regular rate and rhythm Gastrointestinal: soft Results Result Diagram: 12/27/16 0545 12/29/16 0526 Results 24 hrs Laboratory Tests Test 12/29/16 05:26 Sodium Level 137 Potassium Level 4.9 Chloride Level 100 Carbon Dioxide Level 28 Anion Gap 14 Blood Urea Nitrogen 29 H Creatinine 0.83 Glucose Level 137 Calcium Level 8.9 Medications Medications Current Medications Ondansetron HCl (Zofran Inj) 4 mg Q6H PRN IV NAUSEA AND/OR VOMITING; Start at 04:30 Acetaminophen (Tylenol Tab) 650 mg Q6H PRN PO PAIN AND OR ELEVATED TEMP Last administered on 12/28/16 08:17; Admin Dose 650 MG; Start 12/20/16 at 04:30 Atorvastatin Calcium (Lipitor) 20 mg DAILY PO Last administered on 12/29/16 08 :13; Admin Dose 20 MG; Start 12/20/16 at 09:00 Tamoxifen Citrate (Nolvadex) 20 mg DAILY PO Last administered on 12/29/16 08: 24; Admin Dose 20 MG; Start 12/20/16 at 09:00 Donepezil HCl (Aricept) 10 mg HS PO Last administered on 12/28/16 21:19; Admin Dose 10 MG; Start 12/20/16 at 21:00 Memantine (Namenda) 5 mg DAILY PO Last administered on 12/29/16 08:14; Admin Dose 5 MG; Start 12/20/16 at 09:00 Docusate Sodium (Colace) 100 mg BID PRN PO CONSTIPATION; Start 12/21/16 at 14: 30 Bisacodyl (Dulcolax) 10 mg DAILY PRN PO CONSTIPATION; Start 12/21/16 at 14:30 Polyethylene Glycol (Miralax) 17 gm DAILY PO Last administered on 12/29/16 08: 14; Admin Dose 17 GM; Start 12/22/16 at 09:00 Famotidine (Pepcid) 20 mg DAILY PO Last administered on 12/29/16 08:13; Admin Dose 20 MG; Start 12/22/16 at 09:00 Metoprolol Succinate (Toprol Xl) 50 mg DAILY PO Last administered on 12/29/16 08:16; Admin Dose 50 MG; Start 12/24/16 at 09:00 Enoxaparin Sodium (Lovenox) 40 mg DAILY SC Last administered on 12/29/16 08:24 ; Admin Dose 40 MG; Start 12/27/16 at 09:00 Methylprednisolone (Medrol) 4 mg HS PO Last administered on 12/28/16 21:19; Admin Dose 4 MG; Start 12/28/16 at 21:00; Stop 12/30/16 at 21:01 Acetaminophen/ Hydrocodone Bitart ([place] (5/325)) 1 tab Q4H PRN PO pain Last administered on 12/29/16 18:01; Admin Dose 1 TAB; Start 12/28/16 at 15:30 Tramadol HCl (Ultram) 50 mg Q6H PRN PO pain; Start 12/28/16 at 15:30 JUANI TOBIN MD Dec 29, 2016 20:08
[2016-12-29] MEDS: DONEPEZIL 10 MG TAB PO SCH (20:52)
[2016-12-30 02:00] VITALS: BP 128/64; PULSE 71; RESP 20
--- NOTE | 2016-12-30 04:25 | PN ---
DATE: 12/29/2016 SUBJECTIVE DATA: No acute changes overnight. The patient is lying comfortably in bed. Family at bedside. The patient complains of spinal pain. She is in no distress and afebrile. She is off antibiotics. OBJECTIVE DATA: VITAL SIGNS: Temperature 97.3, pulse 68, respirations 18, blood pressure 118/58, saturation 94 percent. GENERAL: This is a fragile, elderly woman, who is awake, in no distress. HEENT: Head atraumatic, normocephalic. Sclerae anicteric. Buccal mucosa dry. NECK: Neck is supple. LUNGS: Chest rise symmetrical. Breath sounds diminished at the bases. HEART: S1, S2. ABDOMEN: Soft. Bowel sounds present. EXTREMITIES: Without cyanosis. ASSESSMENT: 1. Resolving sepsis, status post urinary tract infection, completed antibiotics. 2. Status post renal failure secondary to significant urinary retention. 3. History of breast cancer, status post right breast mastectomy. 4. Multiple chronic compression fractures with possible spinal stenosis, ortho follows. Patient is on Medrol. PLAN: Patient remains stable off antibiotics. Continue present care. Sidhu culture p.r.n. Dictated By: Cristiano Goldsmith NP /nayely/lucia /Document#: [id number]
[2016-12-30 06:23] VITALS: BP 102/68; RESP 20
[2016-12-30 07:43] VITALS: BP 115/59; RESP 16
[2016-12-30] MEDS: MEMANTINE 5 MG TAB PO SCH (09:45)
[2016-12-30] MEDS: ATORVASTATIN 20 MG TAB PO SCH (09:45)
[2016-12-30] MEDS: FAMOTIDINE 20 MG TAB PO SCH (09:45)
[2016-12-30] MEDS: METHYLPREDNISOLONE 4 MG TAB PO SCH (09:45)
[2016-12-30] MEDS: POLYETHYLENE GLYCOL 17 GM PACKET PO SCH (09:45)
[2016-12-30] MEDS: METOPROLOL (XL) 50 MG TAB PO SCH (09:46)
[2016-12-30] MEDS: ENOXAPARIN 40 MG/0.4 ML SYG SC SCH (09:47)
[2016-12-30] MEDS: TAMOXIFEN 10 MG TAB PO SCH (09:48)
--- NOTE | 2016-12-30 12:45 | CONS ---
Date/Time of Note Date/Time of Note DATE: 12/30/16 TIME: 12:45 Assessment/Plan Assessment/Plan Chief Complaint/Hosp Course Breast cancer history. history of left mastectomy, and right lumpectomy. KATE CONT TAMOXIFEN BACK PAIN WITH T12 compression fracture, old L5 compression fracture. PAIN CONTROL ORTHO Pneumonia. Constipation UTI with leukocytosis. Hypertension, uncontrolled. Problems: Consultation Date/Type/Reason Admit Date/Time Dec 20, 2016 at 01:58 [facility]ation: [facility] Referring Provider: MATT RYAN MD 24 HR Interval Summary Free Text/Dictation ALL NOTED D/W FAMILY Exam/Review of Systems Vital Signs Vitals Vital Signs Date Time Temp Pulse Resp B/P Pulse Ox O2 Delivery O2 Flow Rate FiO2 12/30/16 07:43 98.2 66 16 115/59 93 Intake and Output 12/29/16 12/29/16 12/30/16 15:00 23:00 07:00 Intake Total 1680 ml 220 ml Output Total 700 ml 3100 ml Balance 980 ml -2880 ml Exam pale Constitutional: alert Head: normocephalic Eyes: nl conjunctiva Neck: supple Respiratory: diminished breath sounds Cardiovascular: regular rate and rhythm Gastrointestinal: soft Results Result Diagram: 12/27/16 0545 12/29/16 05 Medications Medications Current Medications Ondansetron HCl (Zofran Inj) 4 mg Q6H PRN IV NAUSEA AND/OR VOMITING; Start at 04:30 Acetaminophen (Tylenol Tab) 650 mg Q6H PRN PO PAIN AND OR ELEVATED TEMP Last administered on 12/28/16 08:17; Admin Dose 650 MG; Start 12/20/16 at 04:30 Atorvastatin Calcium (Lipitor) 20 mg DAILY PO Last administered on 12/30/16 09 :45; Admin Dose 20 MG; Start 12/20/16 at 09:00 Tamoxifen Citrate (Nolvadex) 20 mg DAILY PO Last administered on 12/30/16 09: 48; Admin Dose 20 MG; Start 12/20/16 at 09:00 Donepezil HCl (Aricept) 10 mg HS PO Last administered on 12/29/16 20:52; Admin Dose 10 MG; Start 12/20/16 at 21:00 Memantine (Namenda) 5 mg DAILY PO Last administered on 12/30/16 09:45; Admin Dose 5 MG; Start 12/20/16 at 09:00 Docusate Sodium (Colace) 100 mg BID PRN PO CONSTIPATION; Start 12/21/16 at 14: 30 Bisacodyl (Dulcolax) 10 mg DAILY PRN PO CONSTIPATION; Start 12/21/16 at 14:30 Polyethylene Glycol (Miralax) 17 gm DAILY PO Last administered on 12/30/16 09: 45; Admin Dose 17 GM; Start 12/22/16 at 09:00 Famotidine (Pepcid) 20 mg DAILY PO Last administered on 12/30/16 09:45; Admin Dose 20 MG; Start 12/22/16 at 09:00 Metoprolol Succinate (Toprol Xl) 50 mg DAILY PO Last administered on 12/30/16 09:46; Admin Dose 50 MG; Start 12/24/16 at 09:00 Enoxaparin Sodium (Lovenox) 40 mg DAILY SC Last administered on 12/30/16 09:47 ; Admin Dose 40 MG; Start 12/27/16 at 09:00 Methylprednisolone (Medrol) 4 mg HS PO Last administered on 12/29/16 20:52; Admin Dose 4 MG; Start 12/28/16 at 21:00; Stop 12/30/16 at 21:01 Acetaminophen/ Hydrocodone Bitart ([place] (5/325)) 1 tab Q4H PRN PO pain Last administered on 12/29/16 18:01; Admin Dose 1 TAB; Start 12/28/16 at 15:30 Tramadol HCl (Ultram) 50 mg Q6H PRN PO pain; Start 12/28/16 at 15:30 JUANI TOBIN MD Dec 30, 2016 12:45
--- NOTE | 2016-12-30 13:15 | PN ---
Date/Time of Note Date/Time of Note DATE: 12/30/16 TIME: 13:09 Assessment/Plan VTE Prophylaxis VTE Prophylaxis Intervention: other Lines/Catheters IV Catheter Type (from Nrsg): Saline Lock Urinary Cath still in place: Yes Reason Cath still needed: urinary retention Assessment/Plan Chief Complaint/Hosp Course 1. Pneumonia, resolved. 2. Breast cancer history. 3. Constipation, resolved 4. UTI with leukocytosis, resolved. 5. Hypertension, controlled. 6. The patient has T12 compression fracture, old L5 compression fracture. Problems: Assessment/Plan 1. discharge home 2. Pain control outpatient, prescription given for pain production control coordinating clerk. 3. spoke to son regarding transfer to SNF, he refused. Spoke to him about pain management in home and his ability to care for marinelli. 4. Spoke to field nurse case manager to arrange subdural anesthesia in hospital. Dr Cornelius refused. 5. Home health arranged, ambulance arranged for the transfer to home Subjective 24 Hr Interval Summary Musculoskeletal: back pain, bone/joint pain Exam/Review of Systems Vital Signs Vitals Vital Signs Date Time Temp Pulse Resp B/P Pulse Ox O2 Delivery O2 Flow Rate FiO2 12/30/16 07:43 98.2 66 16 115/59 93 Intake and Output 12/29/16 12/29/16 12/30/16 14:59 22:59 06:59 Intake Total 1680 ml 220 ml Output Total 700 ml 3100 ml Balance 980 ml -2880 ml Exam Constitutional: alert, oriented (name only) Eyes: nl conjunctiva Neck: supple Respiratory: clear to auscultation Cardiovascular: regular rate and rhythm Gastrointestinal: soft Genitourinary - Female: other (marinelli) Extremities: normal pulses Results Result Diagram: 12/27/16 0545 12/29/16 0526 Medications Medications Current Medications Ondansetron HCl (Zofran Inj) 4 mg Q6H PRN IV NAUSEA AND/OR VOMITING; Start at 04:30 Acetaminophen (Tylenol Tab) 650 mg Q6H PRN PO PAIN AND OR ELEVATED TEMP Last administered on 12/28/16 08:17; Admin Dose 650 MG; Start 12/20/16 at 04:30 Atorvastatin Calcium (Lipitor) 20 mg DAILY PO Last administered on 12/30/16 09 :45; Admin Dose 20 MG; Start 12/20/16 at 09:00 Tamoxifen Citrate (Nolvadex) 20 mg DAILY PO Last administered on 12/30/16 09: 48; Admin Dose 20 MG; Start 12/20/16 at 09:00 Donepezil HCl (Aricept) 10 mg HS PO Last administered on 12/29/16 20:52; Admin Dose 10 MG; Start 12/20/16 at 21:00 Memantine (Namenda) 5 mg DAILY PO Last administered on 12/30/16 09:45; Admin Dose 5 MG; Start 12/20/16 at 09:00 Docusate Sodium (Colace) 100 mg BID PRN PO CONSTIPATION; Start 12/21/16 at 14: 30 Bisacodyl (Dulcolax) 10 mg DAILY PRN PO CONSTIPATION; Start 12/21/16 at 14:30 Polyethylene Glycol (Miralax) 17 gm DAILY PO Last administered on 12/30/16 09: 45; Admin Dose 17 GM; Start 12/22/16 at 09:00 Famotidine (Pepcid) 20 mg DAILY PO Last administered on 12/30/16 09:45; Admin Dose 20 MG; Start 12/22/16 at 09:00 Metoprolol Succinate (Toprol Xl) 50 mg DAILY PO Last administered on 12/30/16 09:46; Admin Dose 50 MG; Start 12/24/16 at 09:00 Enoxaparin Sodium (Lovenox) 40 mg DAILY SC Last administered on 12/30/16 09:47 ; Admin Dose 40 MG; Start 12/27/16 at 09:00 Methylprednisolone (Medrol) 4 mg HS PO Last administered on 12/29/16 20:52; Admin Dose 4 MG; Start 12/28/16 at 21:00; Stop 12/30/16 at 21:01 Acetaminophen/ Hydrocodone Bitart ([place] (5/325)) 1 tab Q4H PRN PO pain Last administered on 12/29/16 18:01; Admin Dose 1 TAB; Start 12/28/16 at 15:30 Tramadol HCl (Ultram) 50 mg Q6H PRN PO pain; Start 12/28/16 at 15:30 COLT UGARTE Dec 30, 2016 13:15
--- NOTE | 2016-12-30 13:18 | PDOCDIS ---
Discharge Instructions DIAGNOSIS Discharge Diagnosis Sepsis, UTI, resolved. Chronic pain syndrome. Pathological fracture T12 and L5 CONDITION Patient Condition: Serious HOME CARE INSTRUCTIONS: Diet Instructions: Low Fat /CholesterolSpecial Diet: 2gm NA ACTIVITY: Activity Restrictions: Slowly Increase Activity Rest between Activity Bathing Restrictions: Sponge BathActivity Restrictions Comment: keep marinelli in for the marinelli retention FOLLOW UP/APPOINTMENTS Follow-up Plan Pain bed control specialist outpatient REFERRALS Other Referrals PCP 1 week SCHOOL/WORK RELEASE May return to School/Work with: With Restrictions COLT UGARTE Dec 30, 2016 13:18
[2016-12-30] MEDS ORDERED: METO50TA16 PO (13:21)
[2016-12-30] MEDS ORDERED: BISA5TAB6 PO (13:21)
[2016-12-30] MEDS ORDERED: HYDR-3498 PO (13:21)
[2016-12-30] MEDS ORDERED: Methylprednisolone PO ×2 (13:21)
[2016-12-30] MEDS ORDERED: DOCU-216 PO (13:21)
[2016-12-30] MEDS ORDERED: TRAM50TA2 PO (13:21)
[2016-12-30 14:47] VITALS: BP 117/55; RESP 20
--- NOTE | 2016-12-31 16:25 | DS ---
Date/Time of Note Date/Time of Note DATE: 12/31/16 TIME: 16:24 Discharge Summary Admission/Discharge Info Admit Date/Time Dec 20, 2016 at 01:58 Discharge Date/Time Dec 30, 2016 at 17:30 Discharge Diagnosis Sepsis, UTI, resolved. Chronic pain syndrome. Pathological fracture T12 and L5 Patient Condition: Serious Consults Dr peñaloza, [place], Dr King, orthopedic surgeon, Dr Walsh, oncology Procedures Pelvis US, Echocardiogram, CT pelvis, MRI lumbar area of spine Hx of Present Illness 81 yo frail female was admitted for sepsis with UTI, she has an extensive medical history, positive for breast cancer and s/p mastectomy, dementia, pain pathological fracture T12 and L5 with severe spinal stenosis. Pt was seen by numerous specialist and she was finished course of antibiotics, her sepsis was resolved and pain got controlled. Marinelli catheter was removed and placed back due to urine retention. On MRI and CT scan of the spinal column were found pathological fractures and severe spinal stenosis. Dr King consulted the patient but unable to perform any procedures due to metastatic character of the fractures. Pt reported residual pain and she was given upon discharge referral for epidural anesthesia that cannot be accomplished during this hospitalization. Pt was discharged home with marinelli catheter and home health PT , she was given prescription for pain killers and taught marinelli catheter care Hospital Course 1. Pneumonia, resolved. 2. Breast cancer history. 3. Constipation, resolved 4. UTI with leukocytosis, resolved. 5. Hypertension, controlled. 6. The patient has T12 compression fracture, old L5 compression fracture. Home Meds Active Scripts Tramadol HCl (Tramadol HCl) 50 Mg Tablet, 50 MG PO Q6H Y for pain for 30 Days, TAB Prov:ZENTSEVCOLT Romero 12/30/16 Metoprolol Succinate* (Toprol XL*) 50 Mg Tab.er.24h, 50 MG PO DAILY for 30 Days Prov:ZENRIVEREVCOLT Romero 12/30/16 [Methylprednisolone] 4 MG TAB No Conflict Check, 4 MG PO HS for 14 Days Prov:ZENTSEVACOLT 12/30/16 [Methylprednisolone] 4 MG TAB No Conflict Check, 4 MG PO AC BREAKFAST for 14 Days Prov:COLT UGARTE 12/30/16 Bisacodyl* (Bisacodyl*) 5 Mg Tablet.dr, 10 MG PO DAILY Y for CONSTIPATION for 30 Days Prov:COLT UGARTE 12/30/16 Docusate Sodium (Dok) 100 Mg Capsule, 100 MG PO BID Y for CONSTIPATION for 30 Days, CAP Prov:COLT UGARTE 12/30/16 Hydrocodone Bit-Acetaminophen (Hydrocodone Bit-APAP) 5-325MG Tablet, 1 TAB PO Q4H Y for pain for 30 Days, TAB Prov:COLT UGARTE 12/30/16 Reported Medications Cholecalciferol* (Vitamin D3*) 1,000 Unit Tablet, 1000 UNIT PO DAILY, TAB 12/20/16 Tamoxifen Citrate* (Tamoxifen Citrate*) 20 Mg Tab, 20 MG PO DAILY, TAB 12/20/16 Memantine* (Namenda*) 5 Mg Tablet, 5 MG PO DAILY, TAB 12/20/16 Donepezil* (Donepezil*) 10 Mg Tablet, 10 MG PO BID, TAB 12/20/16 Diclofenac Sodium* (Diclofenac Sodium*) 75 Mg Tablet., 75 MG PO BID, TAB 12/20/16 Atorvastatin Calcium* (Atorvastatin Calcium*) 20 Mg Tablet, 20 MG PO HS, TAB 12/15/14 Omeprazole* (Omeprazole*) 40 Mg Capsule., 40 MG PO DAILY, CAP 12/15/14 Discontinued Reported Medications Losartan Potassium* (Losartan Potassium*) 50 Mg Tablet, 75 MG PO DAILY, TAB 12/20/16 Omeprazole* (Omeprazole*) 40 Mg Capsule., 40 MG PO DAILY, CAP 12/20/16 Diclofenac Sodium* (Diclofenac Sodium*) 75 Mg Tablet., 75 MG PO BID, TAB 12/15/14 Primary Care Provider Not On Staff Doctor COLT UGARTE Dec 31, 2016 16:25
== END 2016-12-30 17:30 | disposition home health service (06) | DRG 689 ==
LOC: E/R 19:41 → MS2 12-20 01:58
PROVIDERS: ADMIT Internal Medicine Nephrology; ATTEND Internal Medicine Nephrology
DX: N39.0 Urinary tract infection, site not specified (principal); J18.9 Pneumonia, unspecified organism; A41.9 Sepsis, unspecified organism; N17.9 Acute kidney failure, unspecified; M48.54XA Collapsed vertebra, not elsewhere classified, thoracic region, initial encounter for fracture; E87.1 Hypo-osmolality and hyponatremia; R64 Cachexia; M48.56XA Collapsed vertebra, not elsewhere classified, lumbar region, initial encounter for fracture; B96.20 Unspecified Escherichia coli [E. coli] as the cause of diseases classified elsewhere; I10 Essential (primary) hypertension; D72.829 Elevated white blood cell count, unspecified; R10.9 Unspecified abdominal pain; K59.00 Constipation, unspecified; Z85.3 Personal history of malignant neoplasm of breast; T83.098A Other mechanical complication of other urinary catheter, initial encounter; R33.8 Other retention of urine; G30.9 Alzheimer's disease, unspecified; F02.80 Dementia in other diseases classified elsewhere, unspecified severity, without behavioral disturbance, psychotic disturbance, mood disturbance, and anxiety; M85.80 Other specified disorders of bone density and structure, unspecified site; R19.7 Diarrhea, unspecified; R97.0 Elevated carcinoembryonic antigen [CEA]; G89.4 Chronic pain syndrome
CPT/HCPCS: 36415; 71010; 72148; 74176; 76856; 80048; 80053; 81001; 81003; 82378; 83690; 84300; 84484; 85025; 85610; 85730; 86304; 87040; 87075; 87086; 93005; 93306; 96374; 96375; 97162; J0360; J0456; J0696; J1650; J2270; J2405; J7030; J7040; J7050; J7509

== ENCOUNTER 2018-03-30 17:00 | Inpatient (IN) | END 2018-04-06 15:00 | disposition home health service (06) | DRG 872 ==

== ENCOUNTER 2018-05-18 08:14 | Inpatient (IN) | payer MEDICARE, OTHER ==
[~2018-05-18] VITALS: Ht 147.3 cm; Wt 90.0 kg
[~2018-05-18 08:14] MED LIST changes: -ALEN70TA30 PO; +ALEN70TA5 PO; -AMLO-218 PO; -ANAS1TAB PO; -ASPI-664 PO; -AUG875 PO; +CHOL100062 PO; -CHOL2000 PO; +DOCU-144 PO; +DONE10TA7 PO; -DONE5TAB7 PO; +ERTA1VIA3 IM; +LOSA100T15 PO; +MEMA5TAB PO; +METO-319 PO; +NOL20 PO; -OXYB5TAB22 PO
[2018-05-18] MEDS ORDERED: ALBUTEROL 0.083% (NEB) 2.5 MG/3 ML AMP NEB STA (09:07)
[2018-05-18] MEDS ORDERED: SODIUM CHLORIDE 0.9% 1L BAG IV* STA (09:07)
[2018-05-18] MEDS ORDERED: IPRATROPIUM (NEB) 0.5 MG/2.5 ML AMP NEB STA (09:07)
[2018-05-18] MEDS ORDERED: CEFTRIAXONE 1 GM/50 ML (PMX) 50 ML IVPB STA (09:07)
[2018-05-18] MEDS ORDERED: NA POLYST SULFON 15 GM/60 ML BTL PO STA (09:55)
[2018-05-18] MEDS ORDERED: FUROSEMIDE 40 MG INJ IV STA (09:55)
[2018-05-18] MEDS ORDERED: CA CHLORIDE 10% 10 ML SYRINGE IV STA (09:55)
[2018-05-18] MEDS ORDERED: ALBUTEROL 0.5% (NEB) 2.5 MG/0.5 ML AMP INH STA (09:55)
[2018-05-18] MEDS ORDERED: NA BICARBONATE 8.4% 50 ML SYG IV STA (09:55)
[2018-05-18] MEDS ORDERED: ATOR20TA38 PO (10:14)
[2018-05-18] MEDS ORDERED: CHOL100062 PO (10:15)
[2018-05-18] MEDS ORDERED: DICL75TA2 PO (10:16)
[2018-05-18] MEDS ORDERED: OMEP40CA6 PO (10:17)
[2018-05-18] MEDS ORDERED: DONE10TA7 PO (10:17)
[2018-05-18] MEDS ORDERED: MEMA5TAB PO (10:18)
[2018-05-18] MEDS ORDERED: NOL20 PO (10:18)
--- NOTE | 2018-05-18 10:29 | ERD ---
ER Documentation Chief Complaint Chief Complaint vomiting, confused? HPI This is an 82-year-old female with a past medical history of breast carcinoma on oral chemotherapy with vasectomy. The breast cancer was present on the right b ut she has had a bilateral mastectomy. Breast cancer was diagnosed 2 years prior to arrival. The patient is bedbound. She also has a history of dementia and hypertension. She lives at home with her son who helps her to attend her activities of daily living. The son indicates for the past 3 days the patient had significant wheezing and a productive cough. They were seen by their PCP at the onset of her symptoms and placed on Bactrim as the patient has an indwelling Hadley was diagnosed with a urinary tract infection. Her confusion has worsened. She has not been able to tolerate any oral intake as the patient had multiple episodes of nonbloody nonbilious emesis. She has not complained of any abdominal pain. She had a tactile fever with shaking and chills. ROS All systems reviewed and are negative except as per history of present illness. Medications Home Meds Reported Medications Tamoxifen Citrate* (Tamoxifen Citrate*) 20 Mg Tab, 20 MG PO DAILY, TAB 05/18/18 Memantine* (Namenda*) 5 Mg Tablet, 5 MG PO DAILY, #30 TAB 05/18/18 Omeprazole* (Omeprazole*) 40 Mg Capsule.dr, 40 MG PO DAILY, #30 CAP 05/18/18 Donepezil* (Donepezil*) 10 Mg Tablet, 10 MG PO DAILY, #30 TAB 05/18/18 Diclofenac Sodium* (Diclofenac Sodium*) 75 Mg Tablet.dr, 75 MG PO BID, #60 TAB 05/18/18 Cholecalciferol* (Vitamin D3*) 1,000 Unit Tablet, 1000 UNIT PO DAILY, TAB 05/18/18 Atorvastatin Calcium* (Atorvastatin Calcium*) 20 Mg Tablet, 20 MG PO QHS, #30 TAB 05/18/18 Alendronate Sodium* (Fosamax*) 70 Mg Tablet, 70 MG PO Q SAT, #4 TAB 03/30/18 Metoprolol Succinate* (Toprol XL*) 50 Mg Tab.er.24h, 50 MG PO DAILY, #30 TAB 03/30/18 Docusate Sodium* (Colace*) 100 Mg Capsule, 100 MG PO BID, #60 CAP 03/30/18 Losartan Potassium* (Losartan Potassium*) 100 Mg Tablet, 100 MG PO DAILY, TAB 03/30/18 Discontinued Reported Medications Cholecalciferol* (Vitamin D3*) 1,000 Unit Tablet, 1000 UNIT PO DAILY, TAB 12/20/16 Tamoxifen Citrate* (Tamoxifen Citrate*) 20 Mg Tab, 20 MG PO DAILY, TAB 12/20/16 Memantine* (Namenda*) 5 Mg Tablet, 5 MG PO DAILY, TAB 12/20/16 Donepezil* (Donepezil*) 10 Mg Tablet, 10 MG PO BID, TAB 12/20/16 Diclofenac Sodium* (Diclofenac Sodium*) 75 Mg Tablet.dr, 75 MG PO BID, TAB 12/20/16 Atorvastatin Calcium* (Atorvastatin Calcium*) 20 Mg Tablet, 20 MG PO HS, TAB 12/15/14 Omeprazole* (Omeprazole*) 40 Mg Capsule.dr, 40 MG PO DAILY, CAP 12/15/14 Discontinued Scripts Ertapenem Sodium (Invanz) 1 Gm Vial, 1 GM IM DAILY for 5 Days, VIAL Prov:MARIA M UGARTEA 04/05/18 Allergies Allergies: Coded Allergies: No Known Allergy (Unverified , 05/18/18) PMhx/Soc Anesthesia Reaction: No Hx Neurological Disorder: Yes (Dementia) Hx Respiratory Disorders: No Hx Cardiac Disorders: Yes (HTN, CVA?) Hx Psychiatric Problems: No Hx Miscellaneous Medical Probl: Yes ( Hypertension, dementia, dyslipidemia.) Hx Alcohol Use: No Hx Substance Use: No Hx Tobacco Use: No Smoking Status: Never smoker Physical Exam Vitals Vital Signs Date Temp Pulse Resp B/P (MAP) Pulse Ox O2 O2 Flow FiO2 Time Delivery Rate 05/18/18 86 15 96 21 09:50 05/18/18 98.5 81 18 155/68 93 08:17 (97) Physical Exam Constitutional:Well-developed. Well-nourished. HEENT:Normocephalic. Atraumatic.Pupils were equal round reactive to light. Very dry mucous membranes.No tonsillar exudates. Neck: No nuchal rigidity. No lymphadenopathy. No posterior cervical spine tenderness or step-offs. Respiratory: Not using accessory muscles of respiration.Lungs were clear to auscultation bilaterally. Bilateral rhonchi. No rales. Wheezing bilaterally Cardiovascular: Regular rate regular rhythm.No murmurs. No rubs were appreciated.S1, S2 normal. Distal pulses are palpable 2+ bilaterally. GI: Abdomen was soft. Nontender. Non Distended. No pulsatile abdominal masses or bruits. No rebound. No guarding. Bowel sounds were present and normal. Muscle skeletal: Full range of motion of the upper extremities bilaterally. Patient unable to lift bilateral lower extremities against gravity.Normal muscle tone.No assymetrical calf tenderness or swelling. Skin: No petechia, no purpura. No lesions on the palms or the soles of the feet. No maculopapular rash. NEURO: Patient was alert, awake, to person but not to place or time. Patient is [place] speaking. Bedbound so gait not observed. Result Diagram: 05/18/1810 05/18/1810 Results 24 hrs Laboratory Tests Test 05/18/18 09:10 05/18/18 09:25 White Blood Count 34.5 10^3/ul Red Blood Count 3.40 10^6/ul Hemoglobin 9.8 g/dl Hematocrit 29.7 % Mean Corpuscular Volume 87.4 fl Mean Corpuscular Hemoglobin 28.8 pg Mean Corpuscular Hemoglobin Concent 33.0 g/dl Red Cell Distribution Width 14.8 % Platelet Count 381 10^3/UL Mean Platelet Volume 8.9 fl Immature Granulocytes % 3.600 % Neutrophils % 88.5 % Lymphocytes % 2.4 % Monocytes % 5.1 % Eosinophils % 0.1 % Basophils % 0.3 % Nucleated Red Blood Cells % 0.0 /100WBC Immature Granulocytes # 1.250 10^3/ul Neutrophils # 30.5 10^3/ul Lymphocytes # 0.8 10^3/ul Monocytes # 1.8 10^3/ul Eosinophils # 0.0 10^3/ul Basophils # 0.1 10^3/ul Nucleated Red Blood Cells # 0.0 10^3/ul Prothrombin Time 13.5 Sec Prothrombin Time Ratio 1.1 INR International Normalized Ratio 1.02 Activated Partial Thromboplast Time 31.5 Sec Sodium Level 120 mmol/L Potassium Level 7.0 mmol/L Chloride Level 88 mmol/L Carbon Dioxide Level 21 mmol/L Anion Gap 11 Blood Urea Nitrogen 61 mg/dl Creatinine 2.57 mg/dl Est Glomerular Filtrat Rate mL/min mL/min Glucose Level 133 mg/dl Calcium Level 8.7 mg/dl Total Bilirubin 0.0 mg/dl Direct Bilirubin 0.00 mg/dl Indirect Bilirubin 0.0 mg/dl Aspartate Amino Transf (AST/SGOT) 39 IU/L Alanine Aminotransferase (ALT/SGPT) 19 IU/L Alkaline Phosphatase 248 IU/L Troponin I < 0.012 ng/ml Total Protein 7.6 g/dl Albumin 3.5 g/dl Globulin 4.10 g/dl Albumin/Globulin Ratio 0.85 Amylase Level 151 U/L Lipase 229 U/L Urine Color YELLOW Urine Clarity CLOUDY Urine pH 5.0 Urine Specific [place] 1.014 Urine Ketones NEGATIVE mg/dL Urine Nitrite NEGATIVE mg/dL Urine Bilirubin NEGATIVE mg/dL Urine Urobilinogen NEGATIVE mg/dL Urine Leukocyte Esterase 3+ Apoorva/ul Urine Microscopic RBC 12 /HPF Urine Microscopic WBC > 182 /HPF Urine Bacteria MODERATE /HPF Urine Mucus FEW /HPF Urine Hemoglobin 2+ mg/dL Urine Glucose NEGATIVE mg/dL Urine Total Protein 1+ mg/dl POC Venous Lactate 1.7 mmol/L Current Medications Medications Dose Sig/Verenice Start Time Status Last (Trade) Ordered Route PRN Stop Time Admin Dose Reason Admin Sodium 2,700 ml BOLUS OVER 2 05/18/18 DC 05/18/18 Chloride HOURS STAT 09:07 09:33 (NS) IV* 05/18/18 09:09 Ceftriaxone 50 ml @ ONCE STAT 05/18/18 DC 05/18/18 Sodium 100 mls/hr IVPB 09:07 09:49 05/18/18 09:36 Albuterol 5 mg ONCE STAT 05/18/18 DC 05/18/18 (Proventil NEB 09:07 09:59 0.083% (Neb)) 05/18/18 09:09 Ipratropium 0.5 mg ONCE STAT 05/18/18 DC 05/18/18 Girard NEB 09:07 09:59 (Atrovent 05/18/18 09:09 0.02% (Neb)) Furosemide 40 mg ONCE STAT 05/18/18 DC (Lasix) IV 09:55 05/18/18 09:57 Sodium 30 gm ONCE STAT 05/18/18 DC Polystyrene PO 09:55 Sulfonate 05/18/18 09:57 (Kayexalate) Albuterol 15 mg ONCE STAT 05/18/18 DC (Proventil INH 09:55 0.5% (Neb)) 05/18/18 09:57 Sodium 50 ml ONCE STAT 05/18/18 DC Bicarbonate IV 09:55 (Na Bicarb 05/18/18 09:57 8.4% Syg) Calcium 1,000 mg ONCE STAT 05/18/18 DC Chloride IV 09:55 (Ca Chloride 05/18/18 09:57 10% Syg) Procedures/MDM The patient presented to the emergency department with an acute and persistent change in their mental status. The differential diagnosis is diverse however reversible causes such as hypoglycemia, opiate overdose, thiamine deficiency were immediately considered. The patient was placed on a security monitor, continuous pulse oximetry and IV access was established. The patients airway was secure however hypoxic events such as anemia, shock, or severe pulmonary disease were all considered as etiologies in this patients presentation. Circulation assessed with good cap refill and did require fluids but not pressure support. Finger stick for rapid glucose determined to be normal. I did feel the patient's change in her mental status is likely result of an infection in her urine. Patient had indwelling Hadley catheter. Blood cultures and urine cultures were obtained. The patient was started on ceftriaxone and vancomycin 12 Lead EKG tracing ordered and reviewed by myself showed: Normal sinus rhythm of 83 bpm and no arrhythmia. NV interval normal. QRS duration normal. No ST segment elevation No ST segment depression. No changes consistent with acute ischemia. The patient had significant leukocytosis but no evidence of sepsis his lactic acid was within normal limits. The patient had an elevation in her BUN and creatinine with acute renal failure. This did appear to be prerenal azotemia. She was given IV fluid resuscitation. This was given slowly with frequent repeat respiratory examinations performed by myself as the patient on chest radiograph and pulmonary vascular congestion. Family stated that they did not believe the patient had a history of congestive heart failure and therefore obtained a BMP. The patient's potassium was significantly elevated 7.0. She was treated with an amp of bicarbonate amp of calcium chloride and Kayexalate albuterol as well as Lasix. She will be admitted in serious condition to the telemetry service under the care of Dr. Foster. Critical Care: Time: 35 minutes Treatments/Evaluations: Close monitoring and treatment of unstable vital signs, cardiorespiratory, and neurologic status, while maintaining tight balance of fluid, respiratory, and cardiac interventions. Time does not include performing any of the above billable procedures. Departure Diagnosis: Primary Impression: Pyelonephritis Additional Impressions: Hyperkalemia Prerenal azotemia Condition: Serious CAN FOWLER MD May 18, 2018 10:29
[2018-05-18] MEDS ORDERED: ONDANSETRON 4 MG INJ IV PRN (11:00)
[2018-05-18] MEDS ORDERED: ACETAMINOPHEN 325 MG TAB PO PRN (11:00)
--- NOTE | 2018-05-18 12:02 | HP ---
Date/Time of Note Date/Time of Note DATE: 05/18/18 TIME: 12:00 Assessment/Plan VTE Prophylaxis SCD applied (from Nsg): Yes Pharmacological prophylaxis: NA/contraindicated Pharm contraindication: bleeding Lines/Catheters IV Catheter Type (from Nrsg): Saline Lock Urinary Cath still in place: Yes Reason Cath still needed: urinary retention Assessment/Plan Hospital Course 1. Pyelonephritis. hx of recent urinary tract infection. 2. Hyperkalemia. 3. Acute kidney injury. 4. Hyponatremia. 5. Uncontrolled Afib 6. Anemia. 7. Leukocytosis. 8. Hypertension. 9. Dyslipidemia. 10. hx of breast cancer. S/p bilateral mastectomy 11. Possible aspiration pneumonia Assessment/Plan -dvt proph SCD. GI proph. Protonix -hold po meds -IV a/b -swallow eval. -IV fluids -telemetry service -cardiology consult dr Red Result Diagram: 05/18/18 0910 05/18/18 1033 Results 24hrs Laboratory Tests Test 05/18/18 09:10 05/18/18 09:25 05/18/18 10:33 White Blood Count 34.5 #H Red Blood Count 3.40 L Hemoglobin 9.8 L Hematocrit 29.7 L Mean Corpuscular Volume 87.4 Mean Corpuscular Hemoglobin 28.8 L Mean Corpuscular Hemoglobin Concent 33.0 Red Cell Distribution Width 14.8 H Platelet Count 381 # Mean Platelet Volume 8.9 Immature Granulocytes % 3.600 H Neutrophils % 88.5 H Lymphocytes % 2.4 L Monocytes % 5.1 Eosinophils % 0.1 Basophils % 0.3 Nucleated Red Blood Cells % 0.0 Immature Granulocytes # 1.250 H Neutrophils # 30.5 H Lymphocytes # 0.8 Monocytes # 1.8 H Eosinophils # 0.0 Basophils # 0.1 Nucleated Red Blood Cells # 0.0 Prothrombin Time 13.5 Prothrombin Time Ratio 1.1 INR International Normalized Ratio 1.02 Activated Partial Thromboplast Time 31.5 Sodium Level 120 L Potassium Level 7.0 *H 6.3 *H Chloride Level 88 L Carbon Dioxide Level 21 Anion Gap 11 Blood Urea Nitrogen 61 H Creatinine 2.57 H Est Glomerular Filtrat Rate mL/min Glucose Level 133 Calcium Level 8.7 Total Bilirubin 0.0 L Direct Bilirubin 0.00 Indirect Bilirubin 0.0 Aspartate Amino Transf (AST/SGOT) 39 Alanine Aminotransferase (ALT/SGPT) 19 Alkaline Phosphatase 248 H Troponin I < 0.012 Total Protein 7.6 Albumin 3.5 Globulin 4.10 H Albumin/Globulin Ratio 0.85 Amylase Level 151 H Lipase 229 Urine Color YELLOW Urine Clarity CLOUDY A Urine pH 5.0 Urine Specific [place] 1.014 Urine Ketones NEGATIVE Urine Nitrite NEGATIVE Urine Bilirubin NEGATIVE Urine Urobilinogen NEGATIVE Urine Leukocyte Esterase 3+ H Urine Microscopic RBC 12 H Urine Microscopic WBC > 182 H Urine Bacteria MODERATE Urine Mucus FEW A Urine Hemoglobin 2+ H Urine Glucose NEGATIVE Urine Total Protein 1+ H POC Venous Lactate 1.7 B-Type Natriuretic Peptide 5860 H HPI/ROS Admit Date/Time Admit Date/Time May 18, 2018 at 10:38 Hx of Present Illness The patient is an 82-year-old female who has a history of dyslipidemia, history of dementia, breast cancer, and hypertension. Past medical history of breast carcinoma, on oral chemotherapy. The breast cancer was present on the right but she has had a bilateral mastectomy. Breast cancer was diagnosed 2 years prior to arrival. The patient is bedbound, she had UTI recently. She lives at home with her son who helps her to attend her activities of daily living. The son indicates for the past 3 days the patient had significant wheezing and a productive cough. Most history is taken from EHR, because pt is a poor historian. Pt, were seen by their PCP at the onset of her symptoms and placed on Bactrim as the patient has an indwelling Marinelli was diagnosed with a urinary tract infection. Her confusion has worsened. She has not been able to tolerate any oral intake as the patient had multiple episodes of nonbloody nonbilious e mesis. She has not complained of any abdominal pain. per son she had a fever with shaking and chills. ROS Respiratory: cough, pleuritic pain, shortness of breath Musculoskeletal: restricted range of motion PMH/Family/Social Past Medical History Medical History: hypertension, peptic ulcer disease Medications Current Medications Ondansetron HCl (Zofran Inj) 4 mg ER BRIDGE PRN IV NAUSEA AND/OR VOMITING; Start 05/18/18 at 11:00; Stop 05/19/18 at 10:59 Acetaminophen (Tylenol Tab) 650 mg ER BRIDGE PRN PO MILD PAIN(1-3)OR ELEVATED TEMP; Start 05/18/18 at 11:00; Stop 05/19/18 at 10:59 Coded Allergies: No Known Allergy (Unverified , 05/18/18) Past Surgical History Past Surgical Hx: other (bilateral mastectomy) Family History Significant Family History: no pertinent family hx Social History Alcohol Use: none Smoking Status: Never smoker Drug Use: none Exam/Review of Systems Vital Signs Vitals Vital Signs Date Temp Pulse Resp B/P (MAP) Pulse Ox O2 O2 Flow FiO2 Time Delivery Rate 05/18/18 98.5 105 20 146/68 100 Nasal 2.0 11:20 (94) Cannula 05/18/18 21 09:50 Exam Exam pale Psych: no complaints Head: normocephalic Eyes: other (right eye deformity) Respiratory: congested cough, diminished breath sounds Cardiovascular: irregular rhythm Gastrointestinal: soft Genitourinary - Female: other (marinelli) Extremities: normal pulses Neurological: confused COLT UGARTE May 18, 2018 12:02
[2018-05-18] MEDS ORDERED: DIGOXIN 500 MCG INJ IV ONE (12:30)
[2018-05-18] MEDS ORDERED: NA POLYST SULFON 15 GM/60 ML BTL PO ONE ×2 (12:30→14:00)
[2018-05-18] MEDS ORDERED: CEFTRIAXONE 1 GM/50 ML (PMX) 50 ML IVPB SCH (12:30)
[2018-05-18] MEDS ORDERED: NA POLYST SULFON 15 GM/60 ML BTL PR ONE (12:30)
[2018-05-18] MEDS ORDERED: METOPROLOL 5 MG INJ IV PRN ×2 (12:30→17:00)
[2018-05-18 12:44] VITALS: PULSE 106
[2018-05-18] MEDS: DEXTROSE 5%-0.45% NACL 1,000 ML IV SCH (13:30)
[2018-05-18] MEDS ORDERED: NA POLYST SULFON 30 GM/120 ML ENEMA PR ONE (14:00)
[2018-05-18] MEDS ORDERED: DILTIAZEM 25 MG INJ IV PRN (15:00)
[2018-05-18 16:27] VITALS: BP 145/70; PULSE 97; RESP 18
[2018-05-18 16:51] VITALS: BP 191/80; PULSE 44; RESP 17
[2018-05-18 16:55] VITALS: PULSE 94
[2018-05-18] MEDS ORDERED: METOPROLOL 5 MG INJ IV SCH (17:00)
--- NOTE | 2018-05-18 18:05 | CONS ---
DATE OF ADMISSION: 05/18/2018 DATE OF CONSULTATION: 05/18/2018 REASON FOR CONSULTATION: Tachyarrhythmia. REQUESTING PHYSICIAN: Baljinder Ryan MD HISTORY OF PRESENT ILLNESS: Ms. Hyde is an 82-year-old female with a history of breast CA status post mastectomy, chemotherapy, dementia, dyslipidemia, hypertension, osteoporosis who presented with cough, wheezing, shortness of breath, and confusion. Upon arrival, temperature 98.5, blood pressure 155/68, pulse 81, respirations 18 sat 98%. The patient's labs, white count 34.5, hemoglobin 9.8, joselyn telet count 381. Sodium of 120, potassium of 7, creatinine 2.5, BUN 61. Troponin negative. BNP of 5860. INR of 1.0. UA positive. The patient underwent a chest x-ray revealing cardiomegaly with hil ar vascular congestion and change, mild left basilar atelectasis, calcified and sclerosis of the aort a. The patient's electrocardiogram reveals rhythm most consistent with sinus rhythm with frequent PA Cs, nonspecific ST abnormalities. The patient was subsequently admitted to the floor and since admit roge to the floor, has remained tachycardic. The patient was placed on broad spectrum antibiotics. T he patient was given a dose of digoxin today and was treated with Kayexalate for elevated potassium w ith most recent potassium being 6.3. PAST MEDICAL HISTORY: As above in HPI. MEDICATIONS CURRENTLY IN HOSPITAL: 1. Ceftriaxone. 2. Protonix. 3. Toprol 5 mg IV push q.4. 4. IV hydration. 5. Zofran. 6. Tylenol. ALLERGIES: NO KNOWN DRUG ALLERGIES. SOCIAL HISTORY: No current tobacco, ETOH or illicit drug use. FAMILY HISTORY: No history of sudden cardiac or early CAD. REVIEW OF SYSTEMS: As above in HPI. CONSTITUTIONAL: No fevers or chills. PULMONARY: No current shortness of breath. CARDIOVASCULAR: No current chest pain. GASTROINTESTINAL: No vomiting. GENITOURINARY: No hematuria. MUSCULOSKELETAL: Degenerative joint disease. PSYCHIATRIC: No documented psych history. NEUROLOGIC: No documented history of CVA. HEMATOLOGY/ONCOLOGY: History of breast cancer. ENDOCRINE: No documented history of thyroid disease or diabetes mellitus. PHYSICAL EXAMINATION: VITAL SIGNS: Temperature of 98.5, blood pressure most recently at 146/68, pulse 106, respiratory rat e of 20, satting 100% on 2 liters. GENERAL: The patient is noncommunicative. NECK: No ____ extension. CHEST: Upper airway sounds are rhonchorous sounds. HEART: Irregular rate and rhythm, 1/6 systolic murmur, tachycardic. ABDOMEN: Positive bowel sounds, soft. EXTREMITIES: No significant pitting edema, 1+ pulses bilateral posterior tibial. LABORATORY DATA: As above in HPI. No further labs for my review at this time. IMAGING STUDIES: As above in HPI. No further imaging for my review at this time. ECG: As in HPI. No further electrograms for my review at this time. IMPRESSION: 1. Tachyarrhythmia with EKG and telemetry being most consistent with a sinus rhythm with frequent PA Cs and possibly times of multifocal atrial tachycardia. 2. Hypertension. 3. Dyslipidemia. 4. Congestive heart failure, question systolic versus diastolic, likely acute on chronic. 5. Renal failure. 6. Hyperkalemia. 7. Urinary tract infection. 8. Leukocytosis. 9. Anemia. 10. Hyponatremia. RECOMMENDATIONS: 1. At this time, I would maintain patient on telemetry monitoring to follow rhythm and rate control closely. 2. Continue to correct the patient's potassium and follow the patient's volume status closely. Prob able need for diuresis. 3. We will place the patient on standing IV push beta romario around the clock in order to improve h eart rate control and we would check the patient's current thyroid state to ensure that subclinical h yperthyroid is not contributing to any bouts of tachyarrhythmias. 4. Continue patient's antibiotics and follow up all culture data. 5. We would continue patient's IV hydration and follow sodium closely. 6. Complete rule out for myocardial infarction to ensure this patient's constellation of symptoms ar e not result or would result in any acute coronary syndrome such as acute myocardial infarction. 7. Place patient on subcutaneous heparin. 8. The patient to go for a head CT to rule out CVA. Thank you for allowing me to take part in the care of this patient. I will continue to follow on her very closely with you with further recommendations to be made as the patient progresses through her inpatient hospital clinical course. Dictated By: KELLI HE/FAITH Conf#: [id number] DID#: [id number] CC: BALJINDER RYAN MD;*EndCC*
[2018-05-18 19:18] VITALS: BP 134/57; PULSE 89; RESP 18
[2018-05-18 20:00] VITALS: PULSE 90
[2018-05-18] MEDS: ATORVASTATIN 20 MG TAB PO SCH (20:46)
[2018-05-18] MEDS: METOPROLOL 25 MG TAB PO SCH (20:47)
[2018-05-18] MEDS: HEPARIN 5,000 UNIT/1 ML VIAL SC SCH (20:58)
[2018-05-19] VITALS (11 sets, daily range): BP systolic 118–159; BP diastolic 53–73; PULSE 70–85; RESP 16–19
[2018-05-19] MEDS: PANTOPRAZOLE 40 MG INJ IV SCH (05:30)
[2018-05-19] MEDS: MEMANTINE 5 MG TAB PO SCH (08:25)
[2018-05-19] MEDS: DONEPEZIL 10 MG TAB PO SCH (08:25)
[2018-05-19] MEDS: CHOLECALCIFEROL 1,000 UNIT TAB PO SCH (08:26)
[2018-05-19] MEDS: METOPROLOL 25 MG TAB PO SCH (08:26)
[2018-05-19] MEDS: HEPARIN 5,000 UNIT/1 ML VIAL SC SCH ×2 (08:39→20:45)
[2018-05-19] MEDS ORDERED: METOPROLOL (XL) 50 MG TAB PO SCH (09:00)
[2018-05-19] MEDS: CEFTRIAXONE 1 GM/50 ML (PMX) 50 ML IVPB SCH (09:26)
[2018-05-19] MEDS ORDERED: NA POLYST SULFON 15 GM/60 ML BTL PO ONE ×2 (10:00→14:30)
[2018-05-19] MEDS: DEXTROSE 5%-0.45% NACL 1,000 ML IV SCH (13:02)
--- NOTE | 2018-05-19 13:43 | RADRPT ---
Vent Rate: 92 bpm RR Interval: 0 msec [place] Interval: 156 msec QRS Duration: 76 msec QT Interval: 332 msec QTC Interval: 410 msec P-R-T [place]: 37 - 6 - -9 degrees Sinus rhythm with premature atrial complexes T wave abnormality, consider anterior ischemia Abnormal ECG No previous tracing available for comparison Electronically Signed By: Ananth Stoddard [id number]
--- NOTE | 2018-05-19 14:47 | CONS ---
Date/Time of Note Date/Time of Note DATE: 05/19/18 TIME: 14:42 Assessment/Plan Assessment/Plan Hospital Course IMPRESSION: 1. Tachyarrhythmia with EKG and telemetry being most consistent with a sinus rhythm with frequent PACs and possibly times of multifocal atrial tachycardia.- no definite AF by tele. Still c/w ST/PAC's. NL TSH 2. Hypertension. 3. Dyslipidemia. 4. Congestive heart failure, question systolic versus diastolic, likely acute on chronic. 5. Renal failure. 6. Hyperkalemia-ongoing 7. Urinary tract infection. 8. Leukocytosis. 9. Anemia. 10. hyponatremia-slowly increasing RECc: -Tele -Continue BB with possible need for increase -Contineu SQ heparin -Contieu abx's and f/u cx data -Contine statin and check fasting lipid panel -Continue to follow and treat elevated K Result Diagram: 05/19/18 0517 05/19/18 0517 Results 24hrs Laboratory Tests Test 05/18/18 19:33 05/19/18 05:17 Potassium Level 5.8 H 5.8 H Creatine Kinase < 20 L < 20 L Creatine Kinase Index Creatinine Kinase MB (Mass) 0.87 0.37 Troponin I < 0.012 0.016 White Blood Count 28.3 H Red Blood Count 2.79 L Hemoglobin 8.1 L Hematocrit 24.6 L Mean Corpuscular Volume 88.2 Mean Corpuscular Hemoglobin 29.0 Mean Corpuscular Hemoglobin Concent 32.9 Red Cell Distribution Width 14.9 H Platelet Count 347 Mean Platelet Volume 8.6 Immature Granulocytes % 2.700 H Neutrophils % 85.4 H Lymphocytes % 3.8 L Monocytes % 7.4 Eosinophils % 0.5 Basophils % 0.2 Nucleated Red Blood Cells % 0.0 Immature Granulocytes # 0.760 H Neutrophils # 24.2 H Lymphocytes # 1.1 Monocytes # 2.1 H Eosinophils # 0.2 Basophils # 0.1 Nucleated Red Blood Cells # 0.0 Sodium Level 128 L Chloride Level 92 L Carbon Dioxide Level 23 Anion Gap 13 Blood Urea Nitrogen 57 H Creatinine 2.49 H Est Glomerular Filtrat Rate mL/min Glucose Level 84 # Calcium Level 8.4 Consultation Date/Type/Reason Admit Date/Time May 18, 2018 at 10:38 Initial Consult Date 05/18/18 Type of Consult cardiology Reason for Consultation tachycardia Requesting Provider: MATT RYAN Exam/Review of Systems Vital Signs Vitals Vital Signs Date Temp Pulse Resp B/P (MAP) Pulse Ox O2 O2 Flow FiO2 Time Delivery Rate 05/19/18 76 12:17 05/19/18 98.3 19 159/73 99 11:16 (101) 05/19/18 2.0 11:12 05/19/18 Nasal 08:10 Cannula 05/18/18 21 09:50 Intake and Output 05/18/18 05/18/18 05/19/18 1515:00 23:00 07:00 IntakeIntake Total 560 ml 580 ml OutputOutput Total 1950 ml 500 ml BalanceBalance -1390 ml 80 ml Exam Review of Systems: CONSTITUTIONAL: No fevers, chills. PULMONARY: No sob CARDIOVASCULAR: No chest pain/palpitations GASTROINTESTINAL: No nausea/vomiting. GENITOURINARY: No hematuria/dysuria. MUSCULOSKELETAL: No myagias/arthalgias. PSYCHIATRIC: The patient denies depression. NEUROLOGIC: lethargic Constitutional: alert Psych: no complaints Head: normocephalic ENMT: mucosa pink and moist Neck: supple, jvd (9 cm water) Respiratory: diminished breath sounds (at bases/B) Cardiovascular: regular rate and rhythm, other (frequent PAC's) Gastrointestinal: soft, non-tender Musculoskeletal: muscle weakness (generalized) Extremities: edema (trace/B) Neurological: lethargic Medications Medications Current Medications Pantoprazole (Protonix Iv) 40 mg DAILY@06 IV Last administered on 05/19/18at 05:30; Admin Dose 40 MG; Start 05/19/18 at 06:00 Dextrose/Sodium Chloride 1,000 ml @ 40 mls/hr Q24H IV Last administered on 05/19/18at 13:02; Admin Dose 40 MLS/HR; Start 05/18/18 at 12:30 Ceftriaxone Sodium 50 ml @ 100 mls/hr Q24H IVPB Last administered on 05/19/18at 09:26; Admin Dose 100 MLS/HR; Start 05/19/18 at 10:00 Heparin Sodium (Porcine) (Heparin (5000 Units/1ml)) 5,000 unit BID SC Last administered on 05/19/18at 08:39; Admin Dose 5,000 UNIT; Start 05/18/18 at 21:00 Metoprolol Tartrate (Lopressor) 5 mg Q4 PRN IV HR>110 Hold SBP<100; Start 05/18/18 at 17:00 Metoprolol Tartrate (Lopressor) 25 mg BID PO Last administered on 05/19/18 08:26; Admin Dose 25 MG; Start 05/18/18 at 21:00 Atorvastatin Calcium (Lipitor) 20 mg QHS PO Last administered on 05/18/18at 20:46; Admin Dose 20 MG; Start 05/18/18 at 21:00 Cholecalciferol (Vitamin D) 1,000 unit DAILY PO Last administered on 05/19/18 08:26; Admin Dose 1,000 UNIT; Start 05/19/18 at 09:00 Donepezil HCl (Aricept) 10 mg DAILY PO Last administered on 05/19/18 08:25; Admin Dose 10 MG; Start 05/19/18 at 09:00 Memantine (Namenda) 5 mg DAILY PO Last administered on 05/19/18 08:25; Admin Dose 5 MG; Start 05/19/18 at 09:00 KELLI AMBROSE May 19, 2018 14:47
--- NOTE | 2018-05-19 16:45 | RADRPT ---
Echocardiogram Report Patient Name: ALAN MALDONADO Gender: Female Date: 1935 Study Date: 19-May-2018 Hunter Trapper: Richy Almazan [facility] Location: 610 Ref. Physician: KELLI RED Quality: Adequate Procedures: Transthoracic echocardiogram with complete 2D, M-Mode, and doppler examination. Indications: Tachycardia. 2D/M Mode Doppler Measurement Value Normal Ranges Measurement Value Normal Ranges LVIDd 2D 3.6 3.5 - 5.6 cm AV Peak Marco 1.8 m/sec LVIDs 2D 2.3 2.1 - 4.1 cm AV Peak PG 13.0 mmHg FS 2D 34.5 % LVOT Peak Marco 1.4 m/sec LVPWd 2D 1.1 0.6 - 1.1 cm LVOT Peak PG 7.0 mmHg IVSd 2D 1.0 0.6 - 1.1 cm MV E Peak Marco 0.7 m/sec IVS/LVPW 2D 0.9 MV A Peak Marco 1.0 m/sec AoR Diam 2D 2.3 2.0 - 3.7 cm MV E/A 0.7 LA/Ao 2D 1 0 - 1 MV Decel Time 236 msec EDV 2D 45.5 cm3 MV E/A 0.7 ESV 2D 12.8 cm3 TV E Peak Marco 0.4 m/sec LA Dimen 2D 2.7 2.3 - 4.0 cm Findings Left Ventricle: Normal left ventricular systolic function. Normal left ventricular cavity size. Normal left ventricular wall thickness. Ejection fraction is visually estimated at 60 %. Tissue Doppler/Mitral Doppler indices are consistent with impaired relaxation (Stage I diastolic dysfunction). Right Ventricle: Normal right ventricular size. Normal right ventricular systolic function. Left Atrium: The left atrium is normal in size. Right Atrium: The right atrium is normal in size. Mitral Valve: Normal appearance of the mitral valve. Trace mitral regurgitation. Aortic Valve: Normal appearance of the aortic valve. No aortic regurgitation. Tricuspid Valve: Normal appearance of the tricuspid valve. There is trace tricuspid regurgitation. Pulmonic Valve: Normal pulmonic valve appearance. No evidence of pulmonic regurgitation. Pericardium: Normal pericardium with no significant pericardial effusion. Aorta: Normal aortic root. IVC: Normal size and normal respiratory collapse consistent with normal right atrial pressure. Conclusions Normal left ventricular systolic function. Normal left ventricular cavity size. Normal left ventricular wall thickness. Ejection fraction is visually estimated at 60 %. Tissue Doppler/Mitral Doppler indices are consistent with impaired relaxation (Stage I diastolic dysfunction). Normal right ventricular size. Normal right ventricular systolic function. Normal appearance of the tricuspid valve. There is trace tricuspid regurgitation. Normal appearance of the mitral valve. Trace mitral regurgitation. Electronically Signed By: Kelli Red 19-May-2018 16:44:59 -0800 Patient Name: ALAN MALDONADO Study Date: 19-May-2018 [id number]
--- NOTE | 2018-05-19 18:33 | PN ---
Date/Time of Note Date/Time of Note DATE: 05/19/18 TIME: 18:32 Assessment/Plan VTE Prophylaxis [place] [facility] [place] risk: 9 SCD applied [place] [facility] [place] Yes SCD contraindicated: other Pharmacological prophylaxis: other Lines/Catheters IV Catheter Type (from [facility]): Peripheral IV Urinary Cath still in place: Yes Reason Cath still needed: other (indicate) Assessment/Plan Hospital Course 1. Pyelonephritis. hx of recent urinary tract infection. 2. Hyperkalemia. 3. Acute kidney injury. 4. Hyponatremia. 5. arrthymia 6. Anemia. 7. Leukocytosis. 8. Hypertension. 9. Dyslipidemia. 10. hx of breast cancer. S/p bilateral mastectomy 11. Possible aspiration pneumonia plan kayexalate antibiotic Result Diagram: 05/19/18 0517 05/19/18 0517 Results 24hrs Laboratory Tests Test 05/18/18 19:33 05/19/18 05:17 Potassium Level 5.8 H 5.8 H Creatine Kinase < 20 L < 20 L Creatine Kinase Index Creatinine Kinase MB (Mass) 0.87 0.37 Troponin I < 0.012 0.016 White Blood Count 28.3 H Red Blood Count 2.79 L Hemoglobin 8.1 L Hematocrit 24.6 L Mean Corpuscular Volume 88.2 Mean Corpuscular Hemoglobin 29.0 Mean Corpuscular Hemoglobin Concent 32.9 Red Cell Distribution Width 14.9 H Platelet Count 347 Mean Platelet Volume 8.6 Immature Granulocytes % 2.700 H Neutrophils % 85.4 H Lymphocytes % 3.8 L Monocytes % 7.4 Eosinophils % 0.5 Basophils % 0.2 Nucleated Red Blood Cells % 0.0 Immature Granulocytes # 0.760 H Neutrophils # 24.2 H Lymphocytes # 1.1 Monocytes # 2.1 H Eosinophils # 0.2 Basophils # 0.1 Nucleated Red Blood Cells # 0.0 Sodium Level 128 L Chloride Level 92 L Carbon Dioxide Level 23 Anion Gap 13 Blood Urea Nitrogen 57 H Creatinine 2.49 H Est Glomerular Filtrat Rate mL/min Glucose Level 84 # Calcium Level 8.4 Subjective 24 Hr Interval Summary Respiratory: no complaints Gastrointestinal: no complaints Genitourinary: No flank pain Exam/Review of Systems Vital Signs Vitals Vital Signs Date Temp Pulse Resp B/P (MAP) Pulse Ox O2 O2 Flow FiO2 Time Delivery Rate 05/19/18 82 16:13 05/19/18 97.4 18 159/67 94 16:12 (97) 05/19/18 2.0 11:12 05/19/18 Nasal 08:10 Cannula 05/18/18 21 09:50 Intake and Output 05/18/18 05/18/18 05/19/18 1515:00 23:00 07:00 IntakeIntake Total 560 ml 580 ml OutputOutput Total 1950 ml 500 ml BalanceBalance -1390 ml 80 ml Exam Neck: supple Respiratory: clear to auscultation Cardiovascular: regular rate and rhythm Gastrointestinal: soft Musculoskeletal: nl extremities to inspection Medications Medications Current Medications Pantoprazole (Protonix Iv) 40 mg DAILY@06 IV Last administered on 05/19/18at 05:30; Admin Dose 40 MG; Start 05/19/18 at 06:00 Dextrose/Sodium Chloride 1,000 ml @ 40 mls/hr Q24H IV Last administered on 05/19/18at 13:02; Admin Dose 40 MLS/HR; Start 05/18/18 at 12:30 Ceftriaxone Sodium 50 ml @ 100 mls/hr Q24H IVPB Last administered on 05/19/18at 09:26; Admin Dose 100 MLS/HR; Start 05/19/18 at 10:00 Heparin Sodium (Porcine) (Heparin (5000 Units/1ml)) 5,000 unit BID SC Last administered on 05/19/18at 08:39; Admin Dose 5,000 UNIT; Start 05/18/18 at 21:00 Metoprolol Tartrate (Lopressor) 5 mg Q4 PRN IV HR>110 Hold SBP<100; Start 05/18/18 at 17:00 Atorvastatin Calcium (Lipitor) 20 mg QHS PO Last administered on 05/18/18at 20:46; Admin Dose 20 MG; Start 05/18/18 at 21:00 Cholecalciferol (Vitamin D) 1,000 unit DAILY PO Last administered on 05/19/18at 08:26; Admin Dose 1,000 UNIT; Start 05/19/18 at 09:00 Donepezil HCl (Aricept) 10 mg DAILY PO Last administered on 05/19/18at 08:25; Admin Dose 10 MG; Start 05/19/18 at 09:00 Memantine (Namenda) 5 mg DAILY PO Last administered on 05/19/18at 08:25; Admin Dose 5 MG; Start 05/19/18 at 09:00 Metoprolol Tartrate (Lopressor) 50 mg BID PO ; Start 05/19/18 at 21:00 MATT RYAN MD May 19, 2018 18:33
[2018-05-19] MEDS: ATORVASTATIN 20 MG TAB PO SCH (20:37)
[2018-05-19] MEDS: METOPROLOL 50 MG TAB PO SCH (20:39)
[2018-05-20] VITALS (12 sets, daily range): BP systolic 107–161; BP diastolic 53–75; PULSE 18–96; RESP 16–18
[2018-05-20] MEDS: PANTOPRAZOLE 40 MG INJ IV SCH (05:51)
[2018-05-20] MEDS: METOPROLOL 50 MG TAB PO SCH ×2 (08:41→21:48)
[2018-05-20] MEDS: CHOLECALCIFEROL 1,000 UNIT TAB PO SCH (08:43)
[2018-05-20] MEDS: DONEPEZIL 10 MG TAB PO SCH (08:44)
[2018-05-20] MEDS: MEMANTINE 5 MG TAB PO SCH (08:44)
[2018-05-20] MEDS: HEPARIN 5,000 UNIT/1 ML VIAL SC SCH ×2 (08:53→22:09)
--- NOTE | 2018-05-20 10:45 | PN ---
Date/Time of Note Date/Time of Note DATE: 05/20/18 TIME: 10:38 Assessment/Plan VTE Prophylaxis [place] [facility] [place] risk: 8 SCD applied [place] [facility] [place] Yes Pharmacological prophylaxis: NA/contraindicated Pharm contraindication: low risk/ambulating Lines/Catheters IV C[facility]ter Type (from [facility] Peripheral IV Urinary Cath still in place: Yes Reason Cath still needed: urinary retention Assessment/Plan Hospital Course 82 y/o with Hospital Course 1. Pyelonephritis. hx of recent urinary tract infection. ho of [place] cathteher, pending final cx 2. Hyperkalemia. Likely due to Bactrim 3. Acute kidney injury. likely due to Bactrim/prerenal 4. Hyponatremia. improved 5. arrthymia 6. Anemia. 7. Leukocytosis. still 20 8. Hypertension. 9. Dyslipidemia. 10. hx of breast cancer. S/p bilateral mastectomy 11.SOB with wheezing likely. Congestive heart failure, question systolic versus diastolic, likely acute on chronic. 12 gram negative bacteremia likely secondary to UTI Plan -Pending final speciation of gram-negative UTI -Continue with IV Rocephin White count 20.4 -Continue with gentle fluids -neb -Potassium improved and creatinine is stable -cw with metoprolol 50 twice bid - cw statin - Will get Abdominal US - GI and DVT prophylaxsis Result Diagram: 05/20/18 0508 05/20/18 0508 Results 24hrs Laboratory Tests Test 05/20/18 05:08 White Blood Count 20.4 #H Red Blood Count 3.10 L Hemoglobin 8.9 L Hematocrit 27.1 L Mean Corpuscular Volume 87.4 Mean Corpuscular Hemoglobin 28.7 L Mean Corpuscular Hemoglobin Concent 32.8 Red Cell Distribution Width 15.0 H Platelet Count 358 Mean Platelet Volume 8.1 Immature Granulocytes % 2.800 H Neutrophils % 80.6 H Lymphocytes % 6.6 L Monocytes % 8.0 Eosinophils % 1.7 Basophils % 0.3 Nucleated Red Blood Cells % 0.0 Immature Granulocytes # 0.570 H Neutrophils # 16.5 H Lymphocytes # 1.3 Monocytes # 1.6 H Eosinophils # 0.3 Basophils # 0.1 Nucleated Red Blood Cells # 0.0 Sodium Level 132 L Potassium Level 4.1 Chloride Level 97 Carbon Dioxide Level 24 Anion Gap 11 Blood Urea Nitrogen 47 H Creatinine 2.27 H Est Glomerular Filtrat Rate mL/min Glucose Level 129 # Calcium Level 8.3 L Total Bilirubin 0.0 L Direct Bilirubin 0.00 Indirect Bilirubin 0.0 Aspartate Amino Transf (AST/SGOT) 38 Alanine Aminotransferase (ALT/SGPT) 28 Alkaline Phosphatase 178 H Total Protein 6.3 # Albumin 2.8 L Globulin 3.50 H Albumin/Globulin Ratio 0.80 Subjective 24 Hr Interval Summary Free Text/Dictation Feels full has poor oral intake Had 2 BMs yesterday Potassium is improved BLOOD Cultures are positive Exam/Review of Systems Vital Signs Vitals Vital Signs Date Temp Pulse Resp B/P (MAP) Pulse Ox O2 O2 Flow FiO2 Time Delivery Rate 05/20/18 70 09:11 05/20/18 98.7 17 126/58 95 07:17 (80) 05/20/18 2.0 05:23 05/19/18 Nasal 20:40 Cannula 05/18/18 21 09:50 Intake and Output 05/19/18 05/19/18 05/20/18 1515:00 23:00 07:00 IntakeIntake Total 850 ml 660 ml 480 ml OutputOutput Total 550 ml 700 ml BalanceBalance 850 ml 110 ml -220 ml Exam Neck: supple Respiratory: Few crackles bilaterally Cardiovascular: regular rate and rhythm Gastrointestinal: soft, abdominal distention Musculoskeletal: +Edema Medications Medications Current Medications Pantoprazole (Protonix Iv) 40 mg DAILY@06 IV Last administered on 05/20/18at 05:51; Admin Dose 40 MG; Start 05/19/18 at 06:00 Dextrose/Sodium Chloride 1,000 ml @ 40 mls/hr Q24H IV Last administered on 05/19/18at 13:02; Admin Dose 40 MLS/HR; Start 05/18/18 at 12:30 Ceftriaxone Sodium 50 ml @ 100 mls/hr Q24H IVPB Last administered on 05/19/18at 09:26; Admin Dose 100 MLS/HR; Start 05/19/18 at 10:00 Heparin Sodium (Porcine) (Heparin (5000 Units/1ml)) 5,000 unit BID SC Last administered on 05/20/18at 08:53; Admin Dose 5,000 UNIT; Start 05/18/18 at 21:00 Metoprolol Tartrate (Lopressor) 5 mg Q4 PRN IV HR>110 Hold SBP<100; Start 05/18/18 at 17:00 Atorvastatin Calcium (Lipitor) 20 mg QHS PO Last administered on 05/19/18at 20:37; Admin Dose 20 MG; Start 05/18/18 at 21:00 Cholecalciferol (Vitamin D) 1,000 unit DAILY PO Last administered on 05/20/18 08:43; Admin Dose 1,000 UNIT; Start 05/19/18 at 09:00 Donepezil HCl (Aricept) 10 mg DAILY PO Last administered on 05/20/18at 08:44; Admin Dose 10 MG; Start 05/19/18 at 09:00 Memantine (Namenda) 5 mg DAILY PO Last administered on 05/20/18 08:44; Admin Dose 5 MG; Start 05/19/18 at 09:00 Metoprolol Tartrate (Lopressor) 50 mg BID PO Last administered on 05/20/18 08:41; Admin Dose 50 MG; Start 05/19/18 at 21:00 KRISTOPHER MOLINA MD May 20, 2018 10:45
--- NOTE | 2018-05-20 10:50 | CONS ---
Date/Time of Note Date/Time of Note DATE: 05/20/18 TIME: 10:47 Assessment/Plan Assessment/Plan Hospital Course IMPRESSION: 1. Tachyarrhythmia with EKG and telemetry being most consistent with a sinus rhythm with frequent PACs and possibly times of multifocal atrial tachycardia.- no definite AF by tele. Still c/w ST/PAC's. NL TSH 2. Hypertension. 3. Dyslipidemia. 4. Congestive heart failure, question systolic versus diastolic, likely acute on chronic. 5. Renal failure. 6. Hyperkalemia-ongoing 7. Urinary tract infection. 8. Leukocytosis. 9. Anemia. 10. hyponatremia-slowly increasing RECc: -Tele -Continue curent BB with well controlled HR -Contineu SQ heparin -Contieu abx's and f/u cx data -Contine statin a -Continue to follow K closely -Follow volume status closely and NA Result Diagram: 05/20/18 0508 05/20/18 0508 Results 24hrs Laboratory Tests Test 05/20/18 05:08 White Blood Count 20.4 #H Red Blood Count 3.10 L Hemoglobin 8.9 L Hematocrit 27.1 L Mean Corpuscular Volume 87.4 Mean Corpuscular Hemoglobin 28.7 L Mean Corpuscular Hemoglobin Concent 32.8 Red Cell Distribution Width 15.0 H Platelet Count 358 Mean Platelet Volume 8.1 Immature Granulocytes % 2.800 H Neutrophils % 80.6 H Lymphocytes % 6.6 L Monocytes % 8.0 Eosinophils % 1.7 Basophils % 0.3 Nucleated Red Blood Cells % 0.0 Immature Granulocytes # 0.570 H Neutrophils # 16.5 H Lymphocytes # 1.3 Monocytes # 1.6 H Eosinophils # 0.3 Basophils # 0.1 Nucleated Red Blood Cells # 0.0 Sodium Level 132 L Potassium Level 4.1 Chloride Level 97 Carbon Dioxide Level 24 Anion Gap 11 Blood Urea Nitrogen 47 H Creatinine 2.27 H Est Glomerular Filtrat Rate mL/min Glucose Level 129 # Calcium Level 8.3 L Total Bilirubin 0.0 L Direct Bilirubin 0.00 Indirect Bilirubin 0.0 Aspartate Amino Transf (AST/SGOT) 38 Alanine Aminotransferase (ALT/SGPT) 28 Alkaline Phosphatase 178 H Total Protein 6.3 # Albumin 2.8 L Globulin 3.50 H Albumin/Globulin Ratio 0.80 Consultation Date/Type/Reason Admit Date/Time May 18, 2018 at 10:38 Initial Consult Date 05/18/18 Type of Consult cardiology Reason for Consultation Tachycardia Requesting Provider: MATT RYAN MD Exam/Review of Systems Vital Signs Vitals Vital Signs Date Temp Pulse Resp B/P (MAP) Pulse Ox O2 O2 Flow FiO2 Time Delivery Rate 05/20/18 70 09:11 05/20/18 98.7 17 126/58 95 07:17 (80) 05/20/18 2.0 05:23 05/19/18 Nasal 20:40 Cannula 05/18/18 21 09:50 Intake and Output 05/19/18 05/19/18 05/20/18 1515:00 23:00 07:00 IntakeIntake Total 850 ml 660 ml 480 ml OutputOutput Total 550 ml 700 ml BalanceBalance 850 ml 110 ml -220 ml Exam Review of Systems: CONSTITUTIONAL: No fevers, chills. PULMONARY: No sob CARDIOVASCULAR: No chest pain/palpitations GASTROINTESTINAL: No nausea/vomiting. GENITOURINARY: No hematuria/dysuria. MUSCULOSKELETAL: No myagias/arthalgias. PSYCHIATRIC: The patient denies depression. NEUROLOGIC: No weakness Constitutional: alert Psych: no complaints Head: normocephalic ENMT: mucosa pink and moist Neck: supple, jvd (9 cm water) Respiratory: diminished breath sounds (at bases/B) Cardiovascular: regular rate and rhythm Gastrointestinal: soft, non-tender Musculoskeletal: muscle tone (normal) Extremities: edema (none) Neurological: other (No focal deficits) Medications Medications Current Medications Pantoprazole (Protonix Iv) 40 mg DAILY@06 IV Last administered on 05/20/18at 05:51; Admin Dose 40 MG; Start 05/19/18 at 06:00 Dextrose/Sodium Chloride 1,000 ml @ 40 mls/hr Q24H IV Last administered on 05/19/18at 13:02; Admin Dose 40 MLS/HR; Start 05/18/18 at 12:30 Ceftriaxone Sodium 50 ml @ 100 mls/hr Q24H IVPB Last administered on 05/19/18at 09:26; Admin Dose 100 MLS/HR; Start 05/19/18 at 10:00 Heparin Sodium (Porcine) (Heparin (5000 Units/1ml)) 5,000 unit BID SC Last administered on 05/20/18at 08:53; Admin Dose 5,000 UNIT; Start 05/18/18 at 21:00 Metoprolol Tartrate (Lopressor) 5 mg Q4 PRN IV HR>110 Hold SBP<100; Start 05/18/18 at 17:00 Atorvastatin Calcium (Lipitor) 20 mg QHS PO Last administered on 05/19/18at 20:37; Admin Dose 20 MG; Start 05/18/18 at 21:00 Cholecalciferol (Vitamin D) 1,000 unit DAILY PO Last administered on 05/20/18at 08:43; Admin Dose 1,000 UNIT; Start 05/19/18 at 09:00 Donepezil HCl (Aricept) 10 mg DAILY PO Last administered on 05/20/18 08:44; Admin Dose 10 MG; Start 05/19/18 at 09:00 Memantine (Namenda) 5 mg DAILY PO Last administered on 05/20/18at 08:44; Admin Dose 5 MG; Start 05/19/18 at 09:00 Metoprolol Tartrate (Lopressor) 50 mg BID PO Last administered on 05/20/18at 08:41; Admin Dose 50 MG; Start 05/19/18 at 21:00 Albuterol/ Ipratropium (Duoneb) 3 ml Q6H RESP THERAPY N ; Start 05/20/18 at 11:00 KELLI AMBROSE May 20, 2018 10:50
[2018-05-20] MEDS: CEFTRIAXONE 1 GM/50 ML (PMX) 50 ML IVPB SCH (11:02)
[2018-05-20] MEDS: ALBUTEROL/IPRATROPIUM (NEB) 3 ML AMP HHN SCH ×3 (12:20→19:35)
[2018-05-20] MEDS: DEXTROSE 5%-0.45% NACL 1,000 ML IV SCH (13:43)
[2018-05-20] MEDS: ATORVASTATIN 20 MG TAB PO SCH (21:48)
[2018-05-21] VITALS (14 sets, daily range): BP systolic 137–166; BP diastolic 62–74; PULSE 70–95; RESP 16–19
[2018-05-21] MEDS ORDERED: LEVALBUTEROL (NEB) 0.31 MG/3 ML AMP ONE (01:25)
[2018-05-21] MEDS: ALBUTEROL/IPRATROPIUM (NEB) 3 ML AMP HHN SCH ×4 (01:30→20:21)
[2018-05-21] MEDS: PANTOPRAZOLE (EC) 40 MG TAB PO SCH (05:44)
--- NOTE | 2018-05-21 08:16 | CONS ---
Date/Time of Note Date/Time of Note DATE: 05/21/18 TIME: 08:14 Assessment/Plan Assessment/Plan Assessment/Plan 1. Tachyarrhythmia with EKG and telemetry being most consistent with a sinus rhythm with frequent PACs and possibly times of multifocal atrial tachycardia.- no definite AF by tele. Still c/w ST/PAC's. NL TSH - no acute events - sinus now. 2. Hypertension - modet Rx, co't to adjust Rxa s needed. 3. Dyslipidemia. 4. Congestive heart failure, question systolic versus diastolic, likely acute on chronic - remove fluid as tolerated - Cr 1.8. 5. Renal failure - + some urine output - renal team follows. 6. Hyperkalemia-ongoing 7. Urinary tract infection- Rx with anti-Bx. 8. Leukocytosis. 9. Anemia. 10. hyponatremia-slowly increasing Result Diagram: 05/21/18 0522 05/21/18 0523 Results 24hrs Laboratory Tests Test 05/21/18 05:22 05/21/18 05:23 White Blood Count 18.4 H Red Blood Count 3.19 L Hemoglobin 9.2 L Hematocrit 28.1 L Mean Corpuscular Volume 88.1 Mean Corpuscular Hemoglobin 28.8 L Mean Corpuscular Hemoglobin Concent 32.7 Red Cell Distribution Width 15.0 H Platelet Count 342 Mean Platelet Volume 8.1 Immature Granulocytes % 2.900 H Neutrophils % 79.6 H Lymphocytes % 7.2 L Monocytes % 8.4 Eosinophils % 1.6 Basophils % 0.3 Nucleated Red Blood Cells % 0.0 Immature Granulocytes # 0.530 H Neutrophils # 14.6 H Lymphocytes # 1.3 Monocytes # 1.6 H Eosinophils # 0.3 Basophils # 0.1 Nucleated Red Blood Cells # 0.0 Phosphorus Level 4.2 Magnesium Level 1.9 Sodium Level 132 L Potassium Level 3.9 Chloride Level 100 Carbon Dioxide Level 24 Anion Gap 8 Blood Urea Nitrogen 36 #H Creatinine 1.81 H Est Glomerular Filtrat Rate mL/min Glucose Level 127 Calcium Level 8.4 Consultation Date/Type/Reason Admit Date/Time May 18, 2018 at 10:38 Initial Consult Date Requesting Provider: MATT RYAN MD 24 HR Interval Summary Free Text/Dictation NO acute events - sinus on tele now. ROS: No fever, no chills, no nausea, no vomiting, no diarrhea/constipation No recent weight changes No chest pain, no PND, no orthopnea - stable SOB No dizziness, blurred vision No thirst, no heat or cold intolerance Exam/Review of Systems Vital Signs Vitals Vital Signs Date Temp Pulse Resp B/P (MAP) Pulse Ox O2 O2 Flow FiO2 Time Delivery Rate 05/21/18 77 18 94 21 07:54 05/21/18 99.9 166/74 07:10 (104) 05/21/18 Nasal 04:44 Cannula 05/20/18 2.0 05:23 Intake and Output 05/20/18 05/20/18 05/21/18 1515:00 23:00 07:00 IntakeIntake Total 200 ml 510 ml OutputOutput Total 600 ml 600 ml BalanceBalance -400 ml -90 ml Exam General: WN/WD/NAD, AOx comfortable HEENT: Unicetric/atraumatic/EOMI (does not follow commands) NECK: JVD elevated, no thyromegaly Lymph: no lymphadenopathy HEART: regular with no S3, II/ systolic murmur at apex LUNGS: Coarse sounds ABD: soft, NT, ND, +BS : Intact Neuro: non focal SKIN: chronic changes EXT: trace edema Medications Medications Current Medications Dextrose/Sodium Chloride 1,000 ml @ 40 mls/hr Q24H IV Last administered on 05/20/18at 13:43; Admin Dose 40 MLS/HR; Start 05/18/18 at 12:30 Ceftriaxone Sodium 50 ml @ 100 mls/hr Q24H IVPB Last administered on 05/20/18at 11:02; Admin Dose 100 MLS/HR; Start 05/19/18 at 10:00 Heparin Sodium (Porcine) (Heparin (5000 Units/1ml)) 5,000 unit BID SC Last administered on 05/20/18at 22:09; Admin Dose 5,000 UNIT; Start 05/18/18 at 21:00 Metoprolol Tartrate (Lopressor) 5 mg Q4 PRN IV HR>110 Hold SBP<100; Start 05/18/18 at 17:00 Atorvastatin Calcium (Lipitor) 20 mg QHS PO Last administered on 05/20/18at 21:48; Admin Dose 20 MG; Start 05/18/18 at 21:00 Cholecalciferol (Vitamin D) 1,000 unit DAILY PO Last administered on 05/20/18 08:43; Admin Dose 1,000 UNIT; Start 05/19/18 at 09:00 Donepezil HCl (Aricept) 10 mg DAILY PO Last administered on 05/20/18 08:44; Admin Dose 10 MG; Start 05/19/18 at 09:00 Memantine (Namenda) 5 mg DAILY PO Last administered on 05/20/18 08:44; Admin Dose 5 MG; Start 05/19/18 at 09:00 Metoprolol Tartrate (Lopressor) 50 mg BID PO Last administered on 05/20/18 21:48; Admin Dose 50 MG; Start 05/19/18 at 21:00 Albuterol/ Ipratropium (Duoneb) 3 ml Q6H RESP THERAPY HHN Last administered on 05/21/18 07:52; Admin Dose 3 ML; Start 05/20/18 at 11:00 Pantoprazole (Protonix Tab) 40 mg DAILY@06 PO Last administered on 05/21/18 05:44; Admin Dose 40 MG; Start 05/21/18 at 06:00 MECHE SLAUGHTER MD May 21, 2018 08:16
[2018-05-21] MEDS: DONEPEZIL 10 MG TAB PO SCH (09:17)
[2018-05-21] MEDS: METOPROLOL 50 MG TAB PO SCH ×2 (09:17→23:02)
[2018-05-21] MEDS: CHOLECALCIFEROL 1,000 UNIT TAB PO SCH (09:17)
[2018-05-21] MEDS: MEMANTINE 5 MG TAB PO SCH (09:17)
[2018-05-21] MEDS: CEFTRIAXONE 1 GM/50 ML (PMX) 50 ML IVPB SCH (09:18)
[2018-05-21] MEDS: HEPARIN 5,000 UNIT/1 ML VIAL SC SCH ×2 (09:37→23:15)
--- NOTE | 2018-05-21 11:24 | PN ---
Date/Time of Note Date/Time of Note DATE: 05/21/18 TIME: 11:21 Assessment/Plan VTE Prophylaxis Risk score (from [facility]0 risk: 9 SCD applied (from [facility]): Yes Pharmacological prophylaxis: NA/contraindicated, LMWH Pharm contraindication: other Lines/Catheters IV C[facility]ter Type (from [facility] Peripheral IV Urinary Cath still in place: Yes Reason Cath still needed: urinary retention Assessment/Plan Hospital Course 82 y/o with Hospital Course 1. Pyelonephritis. hx of recent urinary tract infection. ho of Hadley cathteher, + Ecoli and Klebsiella UTI 2. Hyperkalemia. Likely due to Bactrim 3. Acute kidney injury. likely due to Bactrim/prerenal> IMPROVING 4. Hyponatremia. improved 5. arrthymia 6. Anemia. 7. Leukocytosis. still 20 8. Hypertension. 9. Dyslipidemia. 10. hx of breast cancer. S/p bilateral mastectomy 11.SOB with wheezing likely. Congestive heart failure, question systolic versus diastolic, likely acute on chronic. 12 gram negative bacteremia likely secondary to E coli UTI Plan -Switch abx to cefepime - speech and swallow and fruit dryer consult > calorie count -dec fluids - lasix prn - ID consult -neb -cw with metoprolol 50 twice bid and MTP prn - cw statin -Abdominal US neg for ascites - GI and DVT prophylaxsis Result Diagram: 05/21/1822 05/21/18 0523 Results 24hrs Laboratory Tests Test 05/21/18 05:22 05/21/18 05:23 White Blood Count 18.4 H Red Blood Count 3.19 L Hemoglobin 9.2 L Hematocrit 28.1 L Mean Corpuscular Volume 88.1 Mean Corpuscular Hemoglobin 28.8 L Mean Corpuscular Hemoglobin Concent 32.7 Red Cell Distribution Width 15.0 H Platelet Count 342 Mean Platelet Volume 8.1 Immature Granulocytes % 2.900 H Neutrophils % 79.6 H Lymphocytes % 7.2 L Monocytes % 8.4 Eosinophils % 1.6 Basophils % 0.3 Nucleated Red Blood Cells % 0.0 Immature Granulocytes # 0.530 H Neutrophils # 14.6 H Lymphocytes # 1.3 Monocytes # 1.6 H Eosinophils # 0.3 Basophils # 0.1 Nucleated Red Blood Cells # 0.0 Phosphorus Level 4.2 Magnesium Level 1.9 Sodium Level 132 L Potassium Level 3.9 Chloride Level 100 Carbon Dioxide Level 24 Anion Gap 8 Blood Urea Nitrogen 36 #H Creatinine 1.81 H Est Glomerular Filtrat Rate mL/min Glucose Level 127 Calcium Level 8.4 Subjective 24 Hr Interval Summary Free Text/Dictation SBP high Cr improving pt not eating, pt is full wbc 18 Exam/Review of Systems Vital Signs Vitals Vital Signs Date Temp Pulse Resp B/P (MAP) Pulse Ox O2 O2 Flow FiO2 Time Delivery Rate 05/21/18 98.7 78 18 160/73 95 Room Air 09:44 (102) 05/21/18 21 07:54 05/20/18 2.0 05:23 Intake and Output 05/20/18 05/20/18 05/21/18 1515:00 23:00 07:00 IntakeIntake Total 200 ml 510 ml OutputOutput Total 600 ml 600 ml BalanceBalance -400 ml -90 ml Exam Neck: supple Respiratory: Few crackles bilaterally Cardiovascular: regular rate and rhythm Gastrointestinal: soft, abdominal distention Musculoskeletal: +Edema Medications Medications Medications Current Medications Dextrose/Sodium Chloride 1,000 ml @ 20 mls/hr Q24H IV Last administered on 05/20/18at 13:43; Admin Dose 40 MLS/HR; Start 05/18/18 at 12:30 Heparin Sodium (Porcine) (Heparin (5000 Units/1ml)) 5,000 unit BID SC Last administered on 05/21/18at 09:37; Admin Dose 5,000 UNIT; Start 05/18/18 at 21:00 Metoprolol Tartrate (Lopressor) 5 mg Q4 PRN IV HR>110 Hold SBP<100; Start 05/18/18 at 17:00 Atorvastatin Calcium (Lipitor) 20 mg QHS PO Last administered on 05/20/18at 21:48; Admin Dose 20 MG; Start 05/18/18 at 21:00 Cholecalciferol (Vitamin D) 1,000 unit DAILY PO Last administered on 05/21/18at 09:17; Admin Dose 1,000 UNIT; Start 05/19/18 at 09:00 Donepezil HCl (Aricept) 10 mg DAILY PO Last administered on 05/21/18 09:17; Admin Dose 10 MG; Start 05/19/18 at 09:00 Memantine (Namenda) 5 mg DAILY PO Last administered on 05/21/18at 09:17; Admin Dose 5 MG; Start 05/19/18 at 09:00 Metoprolol Tartrate (Lopressor) 50 mg BID PO Last administered on 05/21/18at 09:17; Admin Dose 50 MG; Start 05/19/18 at 21:00 Albuterol/ Ipratropium (Duoneb) 3 ml Q6H RESP THERAPY HHN Last administered on 05/21/18at 07:52; Admin Dose 3 ML; Start 05/20/18 at 11:00 Pantoprazole (Protonix Tab) 40 mg DAILY@06 PO Last administered on 05/21/18at 05:44; Admin Dose 40 MG; Start 05/21/18 at 06:00 Acetaminophen (Tylenol Tab) 650 mg Q6H PRN PO MILD PAIN(1-3)OR ELEVATED TEMP; Start 05/21/18 at 11:30 Cefepime HCl 50 ml @ 100 mls/hr Q12 IVPB ; Start 05/21/18 at 11:30; Status KRISTOPHER SINGLETARY MD May 21, 2018 11:24
[2018-05-21] MEDS ORDERED: ACETAMINOPHEN 325 MG TAB PO PRN (11:30)
[2018-05-21] MEDS: DEXTROSE 5%-0.45% NACL 1,000 ML IV SCH (11:42)
[2018-05-21] MEDS: CEFEPIME 1GM/50 ML (PMX) 50 ML IVPB SCH (11:42)
--- NOTE | 2018-05-21 13:43 | CONS ---
DATE OF ADMISSION: 05/18/2018 DATE OF CONSULTATION: 05/21/2018 TYPE OF CONSULTATION: Infectious disease. REASON FOR CONSULTATION: Antibiotic management. HISTORY OF PRESENT ILLNESS: Mackenzie Hyde is an 82-year-old female with past medical history of andrew st cancer on oral chemotherapy. The breast cancer was present on the right, but she has had a bilate ral mastectomy. The breast cancer was diagnosed 2 years before arrival in the emergency room. She i s bedbound. Past problems include: 1. History of dementia. 2. Hypertension. The patient lives with her son at home for the past 3 days prior to admission. The patient was wheez ing at a productive cough. She was seen by her PCP and was placed on Bactrim as the patient has indw elling Hadley catheter and was diagnosed with urinary tract infection. Her confusion has worsened and she has had multiple episodes of nausea and vomiting. She does not complain of abdominal pain. She had tactile fever and shaking chills. ANCILLARY LABORATORY DATA: White count on admission was 34.5, H and H was 9.8 and 29.7, platelet cou nt 381,000. BUN and creatinine 61/2.57 and random glucose was 133. Urinalysis was positive at 3+ le ukocyte esterase, negative nitrites, greater than 182 white cells per high-power field indicative of urinary tract infection. HOSPITAL COURSE: She was initially started on ceftriaxone. Her primary diagnosis was pyelonephritis . The patient was followed up by Dr. Abdullahi on the 05/20/2018. She still has a Hadley catheter in for urinary retention, history of recent urinary tract infection, hyperkalemia likely due to Bactrim. S he had a white count of 20.4, H and H of 8.9 and 27.1, platelet count 358,000. BUN and creatinine is 47/2.2. Today, white count is 18.4, H and H of 9.2 and 28.1, platelet count 342,000. BUN and creat inine is 36/1.81. She has acute kidney injury improving at the present time. She was switched from Bactrim to cefepime. Blood cultures grew out E. coli on 05/18/2018 sensitive to cefotaxime. She gre w out E coli and Klebsiella pneumoniae. PAST MEDICAL HISTORY: As noted includes hypertension, dementia. She also has dyslipidemia and quest ionable CVA. Operations as outlined. FAMILY HISTORY: Noncontributory. SOCIAL HISTORY: She does not smoke, drink or abuse drugs. ALLERGIES: NONE TO PENICILLIN, SULFA OR FOODS. MEDICATIONS: Per chart. REVIEW OF SYSTEMS: As per HPI. PHYSICAL EXAMINATION: GENERAL: She is well-developed, well-nourished female, awake, responsive, in no acute distress. VITAL SIGNS: Stable. She is afebrile. SKIN: Without generalized rash. HEENT: Within normal limits. NECK: Supple. LYMPH NODES: None palpable. CHEST: Decreased breath sounds at the bases. HEART: Without murmur or gallop. ABDOMEN: Soft, nontender without organosplenomegaly or masses. EXTREMITIES: Without cyanosis, clubbing or edema. RECTAL AND GENITAL: Deferred. NEUROLOGIC: No focal neurological abnormality. IMPRESSION AND PLAN: The patient currently is being treated for urinary tract infection. She also i s bacteremic, currently on cefepime. We will continue her on cefepime for the time being, though her cultures are sensitive to cefotaxime and so we may switch her back to ceftriaxone 1 gram q.24. I wi ll dictate my findings to Dr. Ryan and Dr. Abdullahi. Dictated By: JARAD SANTOS MD, JD/NTS Conf#: [id number] DID#: [id number] CC: KELLI AMBROSE MD; MATT RYAN MD;*End*
[2018-05-21] MEDS: ATORVASTATIN 20 MG TAB PO SCH (23:02)
[2018-05-22] VITALS (12 sets, daily range): BP systolic 122–160; BP diastolic 58–87; PULSE 61–89; RESP 18–19
[2018-05-22] MEDS: ALBUTEROL/IPRATROPIUM (NEB) 3 ML AMP HHN SCH ×4 (01:58→20:04)
[2018-05-22] MEDS: PANTOPRAZOLE (EC) 40 MG TAB PO SCH (06:28)
[2018-05-22] MEDS: METOPROLOL 50 MG TAB PO SCH ×2 (08:14→20:36)
[2018-05-22] MEDS: CHOLECALCIFEROL 1,000 UNIT TAB PO SCH (08:14)
[2018-05-22] MEDS: DONEPEZIL 10 MG TAB PO SCH (08:14)
[2018-05-22] MEDS: MEMANTINE 5 MG TAB PO SCH (08:14)
[2018-05-22] MEDS: HEPARIN 5,000 UNIT/1 ML VIAL SC SCH ×2 (08:24→20:37)
--- NOTE | 2018-05-22 10:10 | PN ---
Date/Time of Note Date/Time of Note DATE: 05/22/18 TIME: 10:10 Assessment/Plan VTE Prophylaxis Risk score (from [facility] [place])>0 risk: 10 SCD applied (from [facility] [place]): Yes Pharmacological prophylaxis: NA/contraindicated Pharm contraindication: low risk/ambulating Lines/Catheters IV Catheter Type (from [facility] Peripheral IV Urinary Cath still in place: Yes Reason Cath still needed: urinary retention Assessment/Plan Hospital Course 82 y/o with Hospital Course 1. Pyelonephritis. hx of recent urinary tract infection. ho of Hadley cathteher, + Ecoli and Klebsiella UTI 2. Hyperkalemia. Likely due to Bactrim 3. Acute kidney injury. likely due to Bactrim/prerenal> IMPROVING 4. Hyponatremia. improved 5. arrthymia 6. Anemia. 7. Leukocytosis. still 20 8. Hypertension. 9. Dyslipidemia. 10. hx of breast cancer. S/p bilateral mastectomy 11.SOB with wheezing likely. Congestive heart failure, question systolic versus diastolic, likely acute on chronic. 12 E coli bacterimia due to UTI Plan -cw cefepime - monitor wbc count - speech and swallow and city designer consult > calorie count -dec fluids - lasix prn -cw with metoprolol 50 twice bid and MTP prn - cw statin -Abdominal US neg for ascites - GI and DVT prophylaxsis transfer to med surg Result Diagram: 05/22/18 0504 05/22/18 0504 Results 24hrs Laboratory Tests Test 05/22/18 05:04 White Blood Count 18.0 H Red Blood Count 2.96 L Hemoglobin 8.4 L Hematocrit 25.9 L Mean Corpuscular Volume 87.5 Mean Corpuscular Hemoglobin 28.4 L Mean Corpuscular Hemoglobin Concent 32.4 Red Cell Distribution Width 15.3 H Platelet Count 203 # Mean Platelet Volume 9.3 Immature Granulocytes % 2.200 H Neutrophils % 77.6 H Lymphocytes % 9.7 L Monocytes % 8.4 Eosinophils % 1.8 Basophils % 0.3 Nucleated Red Blood Cells % 0.0 Immature Granulocytes # 0.390 H Neutrophils # 14.0 H Lymphocytes # 1.8 Monocytes # 1.5 H Eosinophils # 0.3 Basophils # 0.1 Nucleated Red Blood Cells # 0.0 Sodium Level 131 L Potassium Level 4.0 Chloride Level 102 Carbon Dioxide Level 23 Anion Gap 6 Blood Urea Nitrogen 29 H Creatinine 1.52 H Est Glomerular Filtrat Rate mL/min Glucose Level 116 Calcium Level 8.3 L Phosphorus Level 3.3 Magnesium Level 1.8 Subjective 24 Hr Interval Summary Free Text/Dictation Felling better WBC still elevated Exam/Review of Systems Vital Signs Vitals Vital Signs Date Temp Pulse Resp B/P (MAP) Pulse Ox O2 O2 Flow FiO2 Time Delivery Rate 05/22/18 98.6 08:17 05/22/18 85 08:00 05/22/18 18 160/87 97 Room Air 07:24 (111) 05/22/18 21 02:10 05/20/18 2.0 05:23 Intake and Output 05/21/18 05/21/18 05/22/18 1515:00 23:00 07:00 IntakeIntake Total 250 ml 200 ml 300 ml OutputOutput Total 800 ml 500 ml BalanceBalance 250 ml -600 ml -200 ml Exam Neck: supple Respiratory: dec bretah sounds b/l Cardiovascular: regular rate and rhythm Gastrointestinal: soft, abdominal distention Musculoskeletal: +Edema Medications Medications Current Medications Dextrose/Sodium Chloride 1,000 ml @ 20 mls/hr Q24H IV Last administered on 05/21/18at 11:42; Admin Dose 20 MLS/HR; Start 05/18/18 at 12:30 Heparin Sodium (Porcine) (Heparin (5000 Units/1ml)) 5,000 unit BID SC Last adm inistered on 05/22/18at 08:24; Admin Dose 5,000 UNIT; Start 05/18/18 at 21:00 Metoprolol Tartrate (Lopressor) 5 mg Q4 PRN IV HR>110 Hold SBP<100; Start 05/18/18 at 17:00 Atorvastatin Calcium (Lipitor) 20 mg QHS PO Last administered on 05/21/18at 23:02; Admin Dose 20 MG; Start 05/18/18 at 21:00 Cholecalciferol (Vitamin D) 1,000 unit DAILY PO Last administered on 05/22/18at 08:14; Admin Dose 1,000 UNIT; Start 05/19/18 at 09:00 Donepezil HCl (Aricept) 10 mg DAILY PO Last administered on 05/22/18at 08:14; Admin Dose 10 MG; Start 05/19/18 at 09:00 Memantine (Namenda) 5 mg DAILY PO Last administered on 05/22/18at 08:14; Admin Dose 5 MG; Start 05/19/18 at 09:00 Metoprolol Tartrate (Lopressor) 50 mg BID PO Last administered on 05/22/18at 08:14; Admin Dose 50 MG; Start 05/19/18 at 21:00 Albuterol/ Ipratropium (Duoneb) 3 ml Q6H RESP THERAPY HHN Last administered on 05/22/18at 08:01; Admin Dose 3 ML; Start 05/20/18 at 11:00 Pantoprazole (Protonix Tab) 40 mg DAILY@06 PO Last administered on 05/22/18at 06:28; Admin Dose 40 MG; Start 05/21/18 at 06:00 Acetaminophen (Tylenol Tab) 650 mg Q6H PRN PO MILD PAIN(1-3)OR ELEVATED TEMP; Start 05/21/18 at 11:30 Cefepime HCl 50 ml @ 100 mls/hr Q24H IVPB Last administered on 05/21/18at 11:42; Admin Dose 100 MLS/HR; Start 05/21/18 at 12:00 KRISTOPHER MOLINA MD May 22, 2018 10:10
[2018-05-22] MEDS: CEFEPIME 1GM/50 ML (PMX) 50 ML IVPB SCH (11:04)
[2018-05-22] MEDS: DEXTROSE 5%-0.45% NACL 1,000 ML IV SCH (11:50)
--- NOTE | 2018-05-22 12:07 | CONS ---
Date/Time of Note Date/Time of Note DATE: 05/22/18 TIME: 12:05 Assessment/Plan Assessment/Plan Hospital Course IMPRESSION: 1. Tachyarrhythmia with EKG and telemetry being most consistent with a sinus rhythm with frequent PACs and possibly times of multifocal atrial tachycardia.- no definite AF by tele. Still c/w ST/PAC's. NL TSH. reasonable HR control 2. Hypertension. 3. Dyslipidemia. 4. Congestive heart failure, question systolic versus diastolic, likely acute on chronic. 5. Renal failure. 6. Hyperkalemia-ongoing 7. Urinary tract infection. 8. Leukocytosis. 9. Anemia. 10. hyponatremia-ongoing RECc: -Tele -Continue curent BB with well controlled HR -Contineu SQ heparin -Contieu abx's and f/u cx data -Contine statin -Continue to follow K closely -Follow volume status closely and NA -consider additional antihypertensive to improve BP control Result Diagram: 05/22/18 0504 05/22/18 0504 Results 24hrs Laboratory Tests Test 05/22/18 05:04 White Blood Count 18.0 H Red Blood Count 2.96 L Hemoglobin 8.4 L Hematocrit 25.9 L Mean Corpuscular Volume 87.5 Mean Corpuscular Hemoglobin 28.4 L Mean Corpuscular Hemoglobin Concent 32.4 Red Cell Distribution Width 15.3 H Platelet Count 203 # Mean Platelet Volume 9.3 Immature Granulocytes % 2.200 H Neutrophils % 77.6 H Lymphocytes % 9.7 L Monocytes % 8.4 Eosinophils % 1.8 Basophils % 0.3 Nucleated Red Blood Cells % 0.0 Immature Granulocytes # 0.390 H Neutrophils # 14.0 H Lymphocytes # 1.8 Monocytes # 1.5 H Eosinophils # 0.3 Basophils # 0.1 Nucleated Red Blood Cells # 0.0 Sodium Level 131 L Potassium Level 4.0 Chloride Level 102 Carbon Dioxide Level 23 Anion Gap 6 Blood Urea Nitrogen 29 H Creatinine 1.52 H Est Glomerular Filtrat Rate mL/min Glucose Level 116 Calcium Level 8.3 L Phosphorus Level 3.3 Magnesium Level 1.8 Consultation Date/Type/Reason Admit Date/Time May 18, 2018 at 10:38 Initial Consult Date 05/18/18 Type of Consult cardiology Reason for Consultation Tachycardia/HTN Requesting Provider: MATT RYAN MD Exam/Review of Systems Vital Signs Vitals Vital Signs Date Temp Pulse Resp B/P (MAP) Pulse Ox O2 O2 Flow FiO2 Time Delivery Rate 05/22/18 98.9 70 18 145/67 95 Room Air 11:09 (93) 05/22/18 21 02:10 05/20/18 2.0 05:23 Intake and Output 05/21/18 05/21/18 05/22/18 1515:00 23:00 07:00 IntakeIntake Total 250 ml 200 ml 300 ml OutputOutput Total 800 ml 500 ml BalanceBalance 250 ml -600 ml -200 ml Exam Review of Systems: CONSTITUTIONAL: No fevers, chills. PULMONARY: No sob CARDIOVASCULAR: No chest pain/palpitations GASTROINTESTINAL: No nausea/vomiting. GENITOURINARY: No hematuria/dysuria. MUSCULOSKELETAL: No myagias/arthalgias. PSYCHIATRIC: The patient denies depression. NEUROLOGIC: lethargic Constitutional: other (sleeping, arousable) Psych: no complaints Head: normocephalic ENMT: mucosa pink and moist Neck: supple, jvd (9 cm water) Respiratory: diminished breath sounds (at bases/B) Cardiovascular: regular rate and rhythm Gastrointestinal: soft, non-tender Musculoskeletal: muscle weakness (generalized) Extremities: edema (trace/B) Neurological: lethargic Medications Medications Current Medications Dextrose/Sodium Chloride 1,000 ml @ 20 mls/hr Q24H IV Last administered on 05/21/18at 11:42; Admin Dose 20 MLS/HR; Start 05/18/18 at 12:30 Heparin Sodium (Porcine) (Heparin (5000 Units/1ml)) 5,000 unit BID SC Last administered on 05/22/18at 08:24; Admin Dose 5,000 UNIT; Start 05/18/18 at 21:00 Metoprolol Tartrate (Lopressor) 5 mg Q4 PRN IV HR>110 Hold SBP<100; Start 05/18/18 at 17:00 Atorvastatin Calcium (Lipitor) 20 mg QHS PO Last administered on 05/21/18at 23:02; Admin Dose 20 MG; Start 05/18/18 at 21:00 Cholecalciferol (Vitamin D) 1,000 unit DAILY PO Last administered on 05/22/18at 08:14; Admin Dose 1,000 UNIT; Start 05/19/18 at 09:00 Donepezil HCl (Aricept) 10 mg DAILY PO Last administered on 05/22/18 08:14; Admin Dose 10 MG; Start 05/19/18 at 09:00 Memantine (Namenda) 5 mg DAILY PO Last administered on 05/22/18 08:14; Admin Dose 5 MG; Start 05/19/18 at 09:00 Metoprolol Tartrate (Lopressor) 50 mg BID PO Last administered on 05/22/18 08:14; Admin Dose 50 MG; Start 05/19/18 at 21:00 Albuterol/ Ipratropium (Duoneb) 3 ml Q6H RESP THERAPY HHN Last administered on 05/22/18 08:01; Admin Dose 3 ML; Start 05/20/18 at 11:00 Pantoprazole (Protonix Tab) 40 mg DAILY@06 PO Last administered on 05/22/18 06:28; Admin Dose 40 MG; Start 05/21/18 at 06:00 Acetaminophen (Tylenol Tab) 650 mg Q6H PRN PO MILD PAIN(1-3)OR ELEVATED TEMP; Start 05/21/18 at 11:30 Cefepime HCl 50 ml @ 100 mls/hr Q24H IVPB Last administered on 05/22/18at 11:04; Admin Dose 100 MLS/HR; Start 05/21/18 at 12:00 KELLI AMBROSE May 22, 2018 12:07
--- NOTE | 2018-05-22 14:05 | CONS ---
Date/Time of Note Date/Time of Note DATE: 05/22/18 TIME: 14:05 Assessment/Plan Assessment/Plan Hospital Course Patient is lethargic lying comfortably in bed. Family at bedside. No fevers. T-max 99.9. WBC 18 H&H 8.4 and 25.9 platelets 2 3 neutrophils 77.6 BUN 29 creatinine 1.52 Indwelling: [place] Microbiology: Urine culture growing E. coli and Klebsiella pneumoniae susceptible to Levaquin. Blood culture grew E. coli also susceptible to levofloxacin, repeat blood cultures negative Chest x-ray on admission revealed cardiomegaly with vascular congestion and mild left basilar atelectasis Antimicrobials: Cefepime Physical examination: Chronically ill-appearing wasted elderly woman who is in no distress. Head atraumatic normocephalic sclera nonicteric neck is supple chest rise symmetrical breath sounds diminished bases. Heart: S1-S2. Abdomen soft bowel sounds present extremities: With trace edema Assessment: 1. Sepsis, present on admission 2. Polymicrobial UTI with bacteremia 3. E. coli UTI 4. Tachyarrhythmia, cardiology on case 5. CHF 6. Encephalopathy 7. History of breast cancer status post bilateral mastectomy Plan: Patient remained stable still with ongoing leukocytosis however white blood cell count trending down, she is on appropriate antibiotics will keep her on cefepime for now and anticipate discharge home on oral levofloxacin to complete 2 weeks treatment Result Diagram: 05/22/18 0504 05/22/18 0504 Results 24hrs Laboratory Tests Test 05/22/18 05:04 White Blood Count 18.0 H Red Blood Count 2.96 L Hemoglobin 8.4 L Hematocrit 25.9 L Mean Corpuscular Volume 87.5 Mean Corpuscular Hemoglobin 28.4 L Mean Corpuscular Hemoglobin Concent 32.4 Red Cell Distribution Width 15.3 H Platelet Count 203 # Mean Platelet Volume 9.3 Immature Granulocytes % 2.200 H Neutrophils % 77.6 H Lymphocytes % 9.7 L Monocytes % 8.4 Eosinophils % 1.8 Basophils % 0.3 Nucleated Red Blood Cells % 0.0 Immature Granulocytes # 0.390 H Neutrophils # 14.0 H Lymphocytes # 1.8 Monocytes # 1.5 H Eosinophils # 0.3 Basophils # 0.1 Nucleated Red Blood Cells # 0.0 Sodium Level 131 L Potassium Level 4.0 Chloride Level 102 Carbon Dioxide Level 23 Anion Gap 6 Blood Urea Nitrogen 29 H Creatinine 1.52 H Est Glomerular Filtrat Rate mL/min Glucose Level 116 Calcium Level 8.3 L Phosphorus Level 3.3 Magnesium Level 1.8 Consultation Date/Type/Reason Admit Date/Time May 18, 2018 at 10:38 Initial Consult Date Type of Consult id Requesting Provider: MATT RYAN MD Exam/Review of Systems Vital Signs Vitals Vital Signs Date Temp Pulse Resp B/P (MAP) Pulse Ox O2 O2 Flow FiO2 Time Delivery Rate 05/22/18 75 17 95 21 13:12 05/22/18 98.9 145/67 Room Air 11:09 (93) 05/20/18 2.0 05:23 Intake and Output 05/21/18 05/21/18 05/22/18 1515:00 23:00 07:00 IntakeIntake Total 250 ml 200 ml 300 ml OutputOutput Total 800 ml 500 ml BalanceBalance 250 ml -600 ml -200 ml Medications Medications Current Medications Dextrose/Sodium Chloride 1,000 ml @ 20 mls/hr Q24H IV Last administered on 05/21/18at 11:42; Admin Dose 20 MLS/HR; Start 05/18/18 at 12:30 Heparin Sodium (Porcine) (Heparin (5000 Units/1ml)) 5,000 unit BID SC Last administered on 05/22/18at 08:24; Admin Dose 5,000 UNIT; Start 05/18/18 at 21:00 Metoprolol Tartrate (Lopressor) 5 mg Q4 PRN IV HR>110 Hold SBP<100; Start 05/18/18 at 17:00 Atorvastatin Calcium (Lipitor) 20 mg QHS PO Last administered on 05/21/18at 23:02; Admin Dose 20 MG; Start 05/18/18 at 21:00 Cholecalciferol (Vitamin D) 1,000 unit DAILY PO Last administered on 05/22/18 08:14; Admin Dose 1,000 UNIT; Start 05/19/18 at 09:00 Donepezil HCl (Aricept) 10 mg DAILY PO Last administered on 05/22/18 08:14; Admin Dose 10 MG; Start 05/19/18 at 09:00 Memantine (Namenda) 5 mg DAILY PO Last administered on 05/22/18at 08:14; Admin Dose 5 MG; Start 05/19/18 at 09:00 Metoprolol Tartrate (Lopressor) 50 mg BID PO Last administered on 05/22/18at 08:14; Admin Dose 50 MG; Start 05/19/18 at 21:00 Albuterol/ Ipratropium (Duoneb) 3 ml Q6H RESP THERAPY HHN Last administered on 05/22/18at 13:12; Admin Dose 3 ML; Start 05/20/18 at 11:00 Pantoprazole (Protonix Tab) 40 mg DAILY@06 PO Last administered on 05/22/18at 06:28; Admin Dose 40 MG; Start 05/21/18 at 06:00 Acetaminophen (Tylenol Tab) 650 mg Q6H PRN PO MILD PAIN(1-3)OR ELEVATED TEMP; Start 05/21/18 at 11:30 Cefepime HCl 50 ml @ 100 mls/hr Q24H IVPB Last administered on 05/22/18at 11:0 4; Admin Dose 100 MLS/HR; Start 05/21/18 at 12:00 Hydralazine HCl (Apresoline) 25 mg Q8 PO ; Start 05/22/18 at 14:00 GIFTY LARA NP May 22, 2018 14:05
[2018-05-22] MEDS: ATORVASTATIN 20 MG TAB PO SCH (20:35)
[2018-05-23] MEDS: ALBUTEROL/IPRATROPIUM (NEB) 3 ML AMP HHN SCH ×4 (01:10→19:39)
[2018-05-23 02:00] VITALS: BP 143/63; PULSE 77; RESP 19
[2018-05-23] MEDS: PANTOPRAZOLE (EC) 40 MG TAB PO SCH (06:06)
[2018-05-23 07:50] VITALS: BP 138/66; PULSE 71; RESP 17
[2018-05-23] MEDS: CHOLECALCIFEROL 1,000 UNIT TAB PO SCH (10:47)
[2018-05-23] MEDS: DONEPEZIL 10 MG TAB PO SCH (10:47)
[2018-05-23] MEDS: METOPROLOL 50 MG TAB PO SCH ×2 (10:48→20:30)
[2018-05-23] MEDS: HEPARIN 5,000 UNIT/1 ML VIAL SC SCH ×2 (10:53→20:31)
[2018-05-23 12:00] VITALS: BP 112/61; PULSE 72; RESP 17
[2018-05-23] MEDS: DEXTROSE 5%-0.45% NACL 1,000 ML IV SCH ×2 (12:30→20:53)
[2018-05-23] MEDS: CEFEPIME 1GM/50 ML (PMX) 50 ML IVPB SCH (12:38)
[2018-05-23] MEDS: MEMANTINE 5 MG TAB PO SCH (12:38)
--- NOTE | 2018-05-23 13:39 | CONS ---
Date/Time of Note Date/Time of Note DATE: 05/23/18 TIME: 13:37 Assessment/Plan Assessment/Plan Hospital Course IMPRESSION: 1. Tachyarrhythmia with EKG and telemetry being most consistent with a sinus rhythm with frequent PACs and possibly times of multifocal atrial tachycardia.- no definite AF by tele. Still c/w ST/PAC's. NL TSH. reasonable HR control 2. Hypertension. 3. Dyslipidemia. 4. Congestive heart failure, question systolic versus diastolic, likely acute on chronic. 5. Renal failure. 6. Hyperkalemia-ongoing 7. Urinary tract infection. 8. Leukocytosis. 9. Anemia. 10. hyponatremia-ongoing RECc: -Tele -Continue curent BB/hydralazine with well controlled HR -Contineu SQ heparin -Contieu abx's and f/u cx data -Contine statin -Continue to follow K closely -Follow volume status closely and NA Result Diagram: 05/23/18 0725 05/23/18 0725 Results 24hrs Laboratory Tests Test 05/23/18 07:25 White Blood Count 14.6 H Red Blood Count 3.15 L Hemoglobin 9.0 L Hematocrit 28.0 L Mean Corpuscular Volume 88.9 Mean Corpuscular Hemoglobin 28.6 L Mean Corpuscular Hemoglobin Concent 32.1 Red Cell Distribution Width 15.0 H Platelet Count 369 # Mean Platelet Volume 8.1 Immature Granulocytes % 1.400 H Neutrophils % 79.0 H Lymphocytes % 9.0 L Monocytes % 7.7 Eosinophils % 2.6 Basophils % 0.3 Nucleated Red Blood Cells % 0.0 Immature Granulocytes # 0.200 H Neutrophils # 11.5 H Lymphocytes # 1.3 Monocytes # 1.1 H Eosinophils # 0.4 Basophils # 0.1 Nucleated Red Blood Cells # 0.0 Sodium Level 134 L Potassium Level 4.2 Chloride Level 101 Carbon Dioxide Level 25 Anion Gap 8 Blood Urea Nitrogen 24 H Creatinine 1.25 H Est Glomerular Filtrat Rate mL/min Glucose Level 113 Calcium Level 8.9 Phosphorus Level 3.4 Magnesium Level 1.7 Consultation Date/Type/Reason Admit Date/Time May 18, 2018 at 10:38 Initial Consult Date 05/18/18 Type of Consult cardiology Reason for Consultation tachycardia Requesting Provider: MATT RYAN MD Exam/Review of Systems Vital Signs Vitals Vital Signs Date Temp Pulse Resp B/P (MAP) Pulse Ox O2 O2 Flow FiO2 Time Delivery Rate 05/23/18 68 18 96 21 13:21 05/23/18 98.9 138/66 07:50 (90) 05/22/18 Room Air 15:07 05/20/18 2.0 05:23 Intake and Output 05/22/18 05/22/18 05/23/18 1515:00 23:00 07:00 IntakeIntake Total 150 ml OutputOutput Total 800 ml 1000 ml BalanceBalance -650 ml -1000 ml Exam Review of Systems: CONSTITUTIONAL: No fevers, chills. PULMONARY: No sob CARDIOVASCULAR: No chest pain/palpitations GASTROINTESTINAL: No nausea/vomiting. GENITOURINARY: No hematuria/dysuria. MUSCULOSKELETAL: No myagias/arthalgias. PSYCHIATRIC: The patient denies depression. NEUROLOGIC: No weakness Constitutional: alert Psych: no complaints Head: normocephalic ENMT: mucosa pink and moist Neck: supple, jvd (9 cm water) Respiratory: diminished breath sounds Cardiovascular: regular rate and rhythm Gastrointestinal: soft Musculoskeletal: muscle tone (normal) Extremities: edema (none) Neurological: other (No focal deficits) Medications Medications Current Medications Dextrose/Sodium Chloride 1,000 ml @ 20 mls/hr Q24H IV Last administered on 05/21/18at 11:42; Admin Dose 20 MLS/HR; Start 05/18/18 at 12:30 Heparin Sodium (Porcine) (Heparin (5000 Units/1ml)) 5,000 unit BID SC Last administered on 05/23/18at 10:53; Admin Dose 5,000 UNIT; Start 05/18/18 at 21:00 Metoprolol Tartrate (Lopressor) 5 mg Q4 PRN IV HR>110 Hold SBP<100; Start 05/18/18 at 17:00 Atorvastatin Calcium (Lipitor) 20 mg QHS PO Last administered on 05/22/18at 20: 35; Admin Dose 20 MG; Start 05/18/18 at 21:00 Cholecalciferol (Vitamin D) 1,000 unit DAILY PO Last administered on 05/23/18at 10:47; Admin Dose 1,000 UNIT; Start 05/19/18 at 09:00 Donepezil HCl (Aricept) 10 mg DAILY PO Last administered on 05/23/18at 10:47; Admin Dose 10 MG; Start 05/19/18 at 09:00 Memantine (Namenda) 5 mg DAILY PO Last administered on 05/23/18 12:38; Admin Dose 5 MG; Start 05/19/18 at 09:00 Metoprolol Tartrate (Lopressor) 50 mg BID PO Last administered on 05/23/18at 10:48; Admin Dose 50 MG; Start 05/19/18 at 21:00 Albuterol/ Ipratropium (Duoneb) 3 ml Q6H RESP THERAPY HHN Last administered on 05/23/18at 13:20; Admin Dose 3 ML; Start 05/20/18 at 11:00 Pantoprazole (Protonix Tab) 40 mg DAILY@06 PO Last administered on 05/23/18at 06:06; Admin Dose 40 MG; Start 05/21/18 at 06:00 Acetaminophen (Tylenol Tab) 650 mg Q6H PRN PO MILD PAIN(1-3)OR ELEVATED TEMP; Start 05/21/18 at 11:30 Cefepime HCl 50 ml @ 100 mls/hr Q24H IVPB Last administered on 05/23/18at 12:38; Admin Dose 100 MLS/HR; Start 05/21/18 at 12:00 Hydralazine HCl (Apresoline) 25 mg Q8 PO Last administered on 05/23/18at 06:06; Admin Dose 25 MG; Start 05/22/18 at 14:00 KELLI AMBROSE May 23, 2018 13:39
--- NOTE | 2018-05-23 14:30 | CONS ---
Date/Time of Note Date/Time of Note DATE: 05/23/18 TIME: 14:29 Assessment/Plan Assessment/Plan Hospital Course No acute events overnight. Patient looks comfortable. No fevers. WBC 14.6 neutrophils 79 no bands BUN 24 creatinine 1.25 Indwelling: [place] Microbiology: Urine culture growing E. coli and Klebsiella pneumoniae susceptible to Levaquin. Blood culture grew E. coli also susceptible to levofloxacin, repeat blood cultures negative Chest x-ray on admission revealed cardiomegaly with vascular congestion and mild left basilar atelectasis Antimicrobials: Cefepime Physical examination: Chronically ill-appearing wasted elderly woman who is in no distress. Head atraumatic normocephalic sclera nonicteric neck is supple chest rise symmetrical breath sounds diminished bases. Heart: S1-S2. Abdomen soft bowel sounds present extremities: With trace edema Assessment: 1. Sepsis, present on admission 2. Polymicrobial UTI with bacteremia 3. E. coli UTI 4. Tachyarrhythmia, cardiology on case 5. CHF 6. Encephalopathy 7. History of breast cancer status post bilateral mastectomy Plan: Patient remained stable, WBC trending down, continue antibiotics, will downgrade to oral levofloxacin upon discharge to complete 2 weeks Result Diagram: 05/23/18 0725 05/23/18 0725 Results 24hrs Laboratory Tests Test 05/23/18 07:25 White Blood Count 14.6 H Red Blood Count 3.15 L Hemoglobin 9.0 L Hematocrit 28.0 L Mean Corpuscular Volume 88.9 Mean Corpuscular Hemoglobin 28.6 L Mean Corpuscular Hemoglobin Concent 32.1 Red Cell Distribution Width 15.0 H Platelet Count 369 # Mean Platelet Volume 8.1 Immature Granulocytes % 1.400 H Neutrophils % 79.0 H Lymphocytes % 9.0 L Monocytes % 7.7 Eosinophils % 2.6 Basophils % 0.3 Nucleated Red Blood Cells % 0.0 Immature Granulocytes # 0.200 H Neutrophils # 11.5 H Lymphocytes # 1.3 Monocytes # 1.1 H Eosinophils # 0.4 Basophils # 0.1 Nucleated Red Blood Cells # 0.0 Sodium Level 134 L Potassium Level 4.2 Chloride Level 101 Carbon Dioxide Level 25 Anion Gap 8 Blood Urea Nitrogen 24 H Creatinine 1.25 H Est Glomerular Filtrat Rate mL/min Glucose Level 113 Calcium Level 8.9 Phosphorus Level 3.4 Magnesium Level 1.7 Consultation Date/Type/Reason Admit Date/Time May 18, 2018 at 10:38 Initial Consult Date Type of Consult id Requesting Provider: MATT RYAN MD Exam/Review of Systems Vital Signs Vitals Vital Signs Date Temp Pulse Resp B/P (MAP) Pulse Ox O2 O2 Flow FiO2 Time Delivery Rate 05/23/18 68 18 96 21 13:21 05/23/18 98.9 138/66 07:50 (90) 05/22/18 Room Air 15:07 05/20/18 2.0 05:23 Intake and Output 05/22/18 05/22/18 05/23/18 1515:00 23:00 07:00 IntakeIntake Total 150 ml OutputOutput Total 800 ml 1000 ml BalanceBalance -650 ml -1000 ml Medications Medications Current Medications Dextrose/Sodium Chloride 1,000 ml @ 20 mls/hr Q24H IV Last administered on 05/21/18at 11:42; Admin Dose 20 MLS/HR; Start 05/18/18 at 12:30 Heparin Sodium (Porcine) (Heparin (5000 Units/1ml)) 5,000 unit BID SC Last administered on 05/23/18at 10:53; Admin Dose 5,000 UNIT; Start 05/18/18 at 21:00 Metoprolol Tartrate (Lopressor) 5 mg Q4 PRN IV HR>110 Hold SBP<100; Start 05/18/18 at 17:00 Atorvastatin Calcium (Lipitor) 20 mg QHS PO Last administered on 05/22/18at 20:35; Admin Dose 20 MG; Start 05/18/18 at 21:00 Cholecalciferol (Vitamin D) 1,000 unit DAILY PO Last administered on 05/23/18at 10:47; Admin Dose 1,000 UNIT; Start 05/19/18 at 09:00 Donepezil HCl (Aricept) 10 mg DAILY PO Last administered on 05/23/18at 10:47; Admin Dose 10 MG; Start 05/19/18 at 09:00 Memantine (Namenda) 5 mg DAILY PO Last administered on 05/23/18at 12:38; Admin Dose 5 MG; Start 05/19/18 at 09:00 Metoprolol Tartrate (Lopressor) 50 mg BID PO Last administered on 05/23/18at 10:48; Admin Dose 50 MG; Start 05/19/18 at 21:00 Albuterol/ Ipratropium (Duoneb) 3 ml Q6H RESP THERAPY HHN Last administered on 05/23/18at 13:20; Admin Dose 3 ML; Start 05/20/18 at 11:00 Pantoprazole (Protonix Tab) 40 mg DAILY@06 PO Last administered on 05/23/18at 06:06; Admin Dose 40 MG; Start 05/21/18 at 06:00 Acetaminophen (Tylenol Tab) 650 mg Q6H PRN PO MILD PAIN(1-3)OR ELEVATED TEMP; Start 05/21/18 at 11:30 Cefepime HCl 50 ml @ 100 mls/hr Q24H IVPB Last administered on 05/23/18at 12:38; Admin Dose 100 MLS/HR; Start 05/21/18 at 12:00 Hydralazine HCl (Apresoline) 25 mg Q8 PO Last administered on 05/23/18at 06:06; Admin Dose 25 MG; Start 05/22/18 at 14:00 GIFTY LARA NP May 23, 2018 14:30
[2018-05-23 14:55] VITALS: BP 136/70; PULSE 76; RESP 18
--- NOTE | 2018-05-23 15:09 | PN ---
Date/Time of Note Date/Time of Note DATE: 05/23/18 TIME: 15:04 Assessment/Plan [place] [facility] [place]: 10 [place] [facility] [place] Pharmacological prophylaxis: NA/contraindicated Pharm contraindication: low risk/ambulating Lines/Catheters IV [facility] Peripheral IV Urinary Cath still in place: Yes Reason Cath still needed: urinary retention Assessment/Plan Hospital Course 82 y/o with Hospital Course 1. Pyelonephritis. hx of recent urinary tract infection. ho of [place] cathteher, + Ecoli and Klebsiella UTI 2. Hyperkalemia. Likely due to Bactrim 3. Acute kidney injury. likely due to Bactrim/prerenal> IMPROVING 4. Hyponatremia. improved 5. arrthymia 6. Anemia. 7. Leukocytosis. still 20>14 8. Hypertension. 9. Dyslipidemia. 10. hx of breast cancer. S/p bilateral mastectomy 11.SOB with wheezing likely. Congestive heart failure, question systolic versus diastolic, likely acute on chronic. 12 E coli bacterimia due to UTI Plan -cw cefepime - monitor wbc count dowtrending - speech and swallow and channeler runner consult > calorie count - lasix prn -cw with metoprolol 50 twice bid and MTP prn - cw statin -Abdominal US neg for ascites - GI and DVT prophylaxsis transfer to med surg - Repeat chest xray Likely dc tmw with po abx Result Diagram: 05/23/18 0725 05/23/18 0725 Results 24hrs Laboratory Tests Test 05/23/18 07:25 White Blood Count 14.6 H Red Blood Count 3.15 L Hemoglobin 9.0 L Hematocrit 28.0 L Mean Corpuscular Volume 88.9 Mean Corpuscular Hemoglobin 28.6 L Mean Corpuscular Hemoglobin Concent 32.1 Red Cell Distribution Width 15.0 H Platelet Count 369 # Mean Platelet Volume 8.1 Immature Granulocytes % 1.400 H Neutrophils % 79.0 H Lymphocytes % 9.0 L Monocytes % 7.7 Eosinophils % 2.6 Basophils % 0.3 Nucleated Red Blood Cells % 0.0 Immature Granulocytes # 0.200 H Neutrophils # 11.5 H Lymphocytes # 1.3 Monocytes # 1.1 H Eosinophils # 0.4 Basophils # 0.1 Nucleated Red Blood Cells # 0.0 Sodium Level 134 L Potassium Level 4.2 Chloride Level 101 Carbon Dioxide Level 25 Anion Gap 8 Blood Urea Nitrogen 24 H Creatinine 1.25 H Est Glomerular Filtrat Rate mL/min Glucose Level 113 Calcium Level 8.9 Phosphorus Level 3.4 Magnesium Level 1.7 Subjective 24 Hr Interval Summary Free Text/Dictation Patient is feeling better wbc count trending down Exam/Review of Systems Vital Signs Vitals Vital Signs Date Temp Pulse Resp B/P (MAP) Pulse Ox O2 O2 Flow FiO2 Time Delivery Rate 05/23/18 98.1 76 18 136/70 97 Room Air 14:55 (92) 05/23/18 21 13:21 05/20/18 2.0 05:23 Intake and Output 05/22/18 05/22/18 05/23/18 1515:00 23:00 07:00 IntakeIntake Total 150 ml OutputOutput Total 800 ml 1000 ml BalanceBalance -650 ml -1000 ml Exam Neck: supple Respiratory: decreased breath sounds at bases Cardiovascular: regular rate and rhythm Gastrointestinal: soft, abdominal distention Musculoskeletal: +Edema Medications Medications Current Medications Dextrose/Sodium Chloride 1,000 ml @ 20 mls/hr Q24H IV Last administered on 05/21/18at 11:42; Admin Dose 20 MLS/HR; Start 05/18/18 at 12:30 Heparin Sodium (Porcine) (Heparin (5000 Units/1ml)) 5,000 unit BID SC Last administered on 05/23/18at 10:53; Admin Dose 5,000 UNIT; Start 05/18/18 at 21:00 Metoprolol Tartrate (Lopressor) 5 mg Q4 PRN IV HR>110 Hold SBP<100; Start 05/18/18 at 17:00 Atorvastatin Calcium (Lipitor) 20 mg QHS PO Last administered on 05/22/18at 20:35; Admin Dose 20 MG; Start 05/18/18 at 21:00 Cholecalciferol (Vitamin D) 1,000 unit DAILY PO Last administered on 05/23/18at 10:47; Admin Dose 1,000 UNIT; Start 05/19/18 at 09:00 Donepezil HCl (Aricept) 10 mg DAILY PO Last administered on 05/23/18at 10:47; Admin Dose 10 MG; Start 05/19/18 at 09:00 Memantine (Namenda) 5 mg DAILY PO Last administered on 05/23/18at 12:38; Admin Dose 5 MG; Start 05/19/18 at 09:00 Metoprolol Tartrate (Lopressor) 50 mg BID PO Last administered on 05/23/18at 10:48; Admin Dose 50 MG; Start 05/19/18 at 21:00 Albuterol/ Ipratropium (Duoneb) 3 ml Q6H RESP THERAPY HHN Last administered on 05/23/18 13:20; Admin Dose 3 ML; Start 05/20/18 at 11:00 Pantoprazole (Protonix Tab) 40 mg DAILY@06 PO Last administered on 05/23/18 06:06; Admin Dose 40 MG; Start 05/21/18 at 06:00 Acetaminophen (Tylenol Tab) 650 mg Q6H PRN PO MILD PAIN(1-3)OR ELEVATED TEMP; Start 05/21/18 at 11:30 Cefepime HCl 50 ml @ 100 mls/hr Q24H IVPB Last administered on 05/23/18at 12:38; Admin Dose 100 MLS/HR; Start 05/21/18 at 12:00 Hydralazine HCl (Apresoline) 25 mg Q8 PO Last administered on 05/23/18 06:06; Admin Dose 25 MG; Start 05/22/18 at 14:00 KRISTOPHER MOLINA MD May 23, 2018 15:09
[2018-05-23 20:00] VITALS: BP 139/64; PULSE 76; RESP 19
[2018-05-23] MEDS: ATORVASTATIN 20 MG TAB PO SCH (20:29)
[2018-05-24 02:00] VITALS: BP 160/69; PULSE 73; RESP 18
[2018-05-24] MEDS: ALBUTEROL/IPRATROPIUM (NEB) 3 ML AMP HHN SCH ×4 (02:07→19:43)
[2018-05-24] MEDS: PANTOPRAZOLE (EC) 40 MG TAB PO SCH (05:39)
[2018-05-24 07:30] VITALS: BP 128/55; PULSE 86; RESP 18
[2018-05-24 08:06] VITALS: BP 146/65; PULSE 62; RESP 18
[2018-05-24] MEDS ORDERED: TAMOXIFEN 10 MG TAB PO SCH (09:00)
[2018-05-24] MEDS: METOPROLOL 50 MG TAB PO SCH (09:08)
[2018-05-24] MEDS: DONEPEZIL 10 MG TAB PO SCH (09:08)
[2018-05-24] MEDS: CHOLECALCIFEROL 1,000 UNIT TAB PO SCH (09:08)
[2018-05-24] MEDS: MEMANTINE 5 MG TAB PO SCH (09:08)
[2018-05-24] MEDS: HEPARIN 5,000 UNIT/1 ML VIAL SC SCH (09:09)
[2018-05-24] MEDS: CEFEPIME 1GM/50 ML (PMX) 50 ML IVPB SCH (11:52)
--- NOTE | 2018-05-24 12:25 | PDOCDIS ---
Discharge Instructions CONDITION [id number] Patient Condition: [id number] Stable HOME CARE INSTRUCTIONS: [id number] Special Diet: [id number] pureed diet ACTIVITY: [id number] Activity Restrictions: [id number] Slowly Increase Activity Rest between Activity Avoid heavy lifting FOLLOW UP/APPOINTMENTS Follow-up Plan PCP 1 week keep the [employer] SCHOOL/WORK RELEASE May return to School/Work with: With Restrictions COLT UGARTE May 24, 2018 12:25
[2018-05-24] MEDS ORDERED: LEVO500T10 PO (12:30)
[2018-05-24] MEDS ORDERED: ALBU90AE INHALATION (12:30)
--- NOTE | 2018-05-24 12:32 | DS ---
COLT UGARTE 05/24/18 1232: Date/Time of Note Date/Time of Note DATE: 05/24/18 TIME: 12:32 Discharge Summary Admission/Discharge Info Admit Date/Time May 18, 2018 at 10:38 Discharge Date/Time Patient Condition: Stable Consults Dr Red, cardiology, ID consult dr Hollingsworth Hx of Present Illness Hospital Course The patient is an 82-year-old female who has a history of dyslipidemia, history of dementia, breast cancer, and hypertension. Past medical history of breast carcinoma, on oral chemotherapy. The breast cancer was present on the right but she has had a bilateral mastectomy. Breast cancer was diagnosed 2 years prior to arrival. The patient is bedbound, she had UTI recently. She lives at home with her son who helps her to attend her activities of daily living. The son indicates for the past 3 days the patient had significant wheezing and a productive cough. Most history is taken from EHR, because pt is a poor historian. Pt, were seen by their PCP at the onset of her symptoms and placed on Bactrim as the patient has an indwelling Marinelli was diagnosed with a urinary tract infection. Her confusion has worsened. She has not been able to tolerate any oral intake as the patient had multiple episodes of nonbloody nonbilious emesis. She has not complained of any abdominal pain. per son she had a fever with shaking and chills. 1. Pyelonephritis. hx of recent urinary tract infection. 2. Hyperkalemia. 3. Acute kidney injury. 4. Hyponatremia. 5. Uncontrolled Afib 6. Anemia. 7. Leukocytosis. 8. Hypertension. 9. Dyslipidemia. 10. hx of breast cancer. S/p bilateral mastectomy 11. Possible aspiration pneumonia During hospitalization pt was on dvt proph. with SCD. GI proph. was with Protonix. We hold po meds until pt demonstrated safe swallowing. Pt was on IV a/b along with maintenance IV fluids. She was on telemetry service, dr Red adjusted her BP meds. Dr Hollingsworth managed pt a/b. Pt has long time inserted marinelli cath and she was d/c with it. Home Meds Active Scripts Albuterol Sulfate (Proair Respiclick) 90 Mcg Aer.pow.ba, 1 PUFF INHALATION Q4 PRN for SHORTNESS OF BREATH for 14 Days, #1 BOTTLE Prov:COLT UGARTE 05/24/18 Levofloxacin* (Levofloxacin*) 500 Mg Tablet, 500 MG PO DAILY for 5 Days, TAB Prov:COLT UGARTE 05/24/18 Reported Medications Tamoxifen Citrate* (Tamoxifen Citrate*) 20 Mg Tab, 20 MG PO DAILY, TAB 05/18/18 Memantine* (Namenda*) 5 Mg Tablet, 5 MG PO DAILY, #30 TAB 05/18/18 Omeprazole* (Omeprazole*) 40 Mg Capsule.dr, 40 MG PO DAILY, #30 CAP 05/18/18 Donepezil* (Donepezil*) 10 Mg Tablet, 10 MG PO DAILY, #30 TAB 05/18/18 Diclofenac Sodium* (Diclofenac Sodium*) 75 Mg Tablet.dr, 75 MG PO BID, #60 TAB 05/18/18 Cholecalciferol* (Vitamin D3*) 1,000 Unit Tablet, 1000 UNIT PO DAILY, TAB 05/18/18 Atorvastatin Calcium* (Atorvastatin Calcium*) 20 Mg Tablet, 20 MG PO QHS, #30 TAB 05/18/18 Alendronate Sodium* (Fosamax*) 70 Mg Tablet, 70 MG PO Q SAT, #4 TAB 03/30/18 Metoprolol Succinate* (Toprol XL*) 50 Mg Tab.er.24h, 50 MG PO DAILY, #30 TAB 03/30/18 Docusate Sodium* (Colace*) 100 Mg Capsule, 100 MG PO BID, #60 CAP 03/30/18 Discontinued Reported Medications Losartan Potassium* (Losartan Potassium*) 100 Mg Tablet, 100 MG PO DAILY, TAB 03/30/18 Cholecalciferol* (Vitamin D3*) 1,000 Unit Tablet, 1000 UNIT PO DAILY, TAB 12/20/16 Tamoxifen Citrate* (Tamoxifen Citrate*) 20 Mg Tab, 20 MG PO DAILY, TAB 12/20/16 Memantine* (Namenda*) 5 Mg Tablet, 5 MG PO DAILY, TAB 12/20/16 Donepezil* (Donepezil*) 10 Mg Tablet, 10 MG PO BID, TAB 12/20/16 Diclofenac Sodium* (Diclofenac Sodium*) 75 Mg Tablet.dr, 75 MG PO BID, TAB 12/20/16 Atorvastatin Calcium* (Atorvastatin Calcium*) 20 Mg Tablet, 20 MG PO HS, TAB 12/15/14 Omeprazole* (Omeprazole*) 40 Mg Capsule., 40 MG PO DAILY, CAP 12/15/14 Discontinued Scripts Ertapenem Sodium (Invanz) 1 Gm Vial, 1 GM IM DAILY for 5 Days, VIAL Prov:COLT UGARTE 04/05/18 Follow-up Plan PCP 1 week keep the yves Primary Care Provider Not On Staff Doctor Time spent on discharge: < 30 minutes KRISTOPHER MOLINA MD 05/25/18 9166: Discharge Summary Admission/Discharge Info Hospital Course LEUKOCYTOSIS IMPORVED TO 14 SHE ALSO HAD RICHARD DUE TO BACTREIM IMPROVED SHE HAD ECOLI BACTERMIA FROM E COLI UTI TRETAED WITH CEFEPIMME, REPEAT BLD CX NEG FAMILY REFUSE SNIF Home Meds Active Scripts Albuterol Sulfate (Proair Respiclick) 90 Mcg Aer.pow.ba, 1 PUFF INHALATION Q4 PRN for SHORTNESS OF BREATH for 14 Days, #1 BOTTLE Prov:COLT UGARTE 05/24/18 Levofloxacin* (Levofloxacin*) 500 Mg Tablet, 500 MG PO DAILY for 5 Days, TAB Prov:COLT UGARTE 05/24/18 Reported Medications Tamoxifen Citrate* (Tamoxifen Citrate*) 20 Mg Tab, 20 MG PO DAILY, TAB 05/18/18 Memantine* (Namenda*) 5 Mg Tablet, 5 MG PO DAILY, #30 TAB 05/18/18 Omeprazole* (Omeprazole*) 40 Mg Capsule., 40 MG PO DAILY, #30 CAP 05/18/18 Donepezil* (Donepezil*) 10 Mg Tablet, 10 MG PO DAILY, #30 TAB 05/18/18 Diclofenac Sodium* (Diclofenac Sodium*) 75 Mg Tablet.dr, 75 MG PO BID, #60 TAB 05/18/18 Cholecalciferol* (Vitamin D3*) 1,000 Unit Tablet, 1000 UNIT PO DAILY, TAB 05/18/18 Atorvastatin Calcium* (Atorvastatin Calcium*) 20 Mg Tablet, 20 MG PO QHS, #30 TAB 05/18/18 Alendronate Sodium* (Fosamax*) 70 Mg Tablet, 70 MG PO Q SAT, #4 TAB 03/30/18 Metoprolol Succinate* (Toprol XL*) 50 Mg Tab.er.24h, 50 MG PO DAILY, #30 TAB 03/30/18 Docusate Sodium* (Colace*) 100 Mg Capsule, 100 MG PO BID, #60 CAP 03/30/18 Discontinued Reported Medications Losartan Potassium* (Losartan Potassium*) 100 Mg Tablet, 100 MG PO DAILY, TAB 03/30/18 Cholecalciferol* (Vitamin D3*) 1,000 Unit Tablet, 1000 UNIT PO DAILY, TAB 12/20/16 Tamoxifen Citrate* (Tamoxifen Citrate*) 20 Mg Tab, 20 MG PO DAILY, TAB 12/20/16 Memantine* (Namenda*) 5 Mg Tablet, 5 MG PO DAILY, TAB 12/20/16 Donepezil* (Donepezil*) 10 Mg Tablet, 10 MG PO BID, TAB 12/20/16 Diclofenac Sodium* (Diclofenac Sodium*) 75 Mg Tablet.dr, 75 MG PO BID, TAB 12/20/16 Atorvastatin Calcium* (Atorvastatin Calcium*) 20 Mg Tablet, 20 MG PO HS, TAB 12/15/14 Omeprazole* (Omeprazole*) 40 Mg Capsule.dr, 40 MG PO DAILY, CAP 12/15/14 Discontinued Scripts Ertapenem Sodium (Invanz) 1 Gm Vial, 1 GM IM DAILY for 5 Days, VIAL Prov:COLT UGARTE 04/05/18 COLT UGARTE May 24, 2018 12:32 KRISTOPHER MOLINA MD May 25, 2018 16:35
[2018-05-24 14:17] VITALS: BP 120/59; PULSE 82; RESP 18
--- NOTE | 2018-05-24 15:28 | CONS ---
Date/Time of Note Date/Time of Note DATE: 05/24/18 TIME: 15:26 Assessment/Plan Assessment/Plan Hospital Course IMPRESSION: 1. Tachyarrhythmia with EKG and telemetry being most consistent with a sinus rhythm with frequent PACs and possibly times of multifocal atrial tachycardia.- no definite AF by tele. Still c/w ST/PAC's. NL TSH. reasonable HR control 2. Hypertension. 3. Dyslipidemia. 4. Congestive heart failure, question systolic versus diastolic, likely acute on chronic. 5. Renal failure-overall improved from admission 6. Hyperkalemia-ongoing 7. Urinary tract infection. 8. Leukocytosis. 9. Anemia. 10. hyponatremia-ongoing RECc: -Now on med-surg -Continue curent BB/hydralazine with well controlled HR -Contineu SQ heparin -Contieu abx's and f/u cx data -Contine statin -Continue to follow K closely -Follow volume status closely and NA Result Diagram: 05/23/1872405/23/18724 Consultation Date/Type/Reason Admit Date/Time May 18, 2018 at 10:38 Initial Consult Date 05/18/18 Type of Consult cardiology Reason for Consultation CHF Requesting Provider: MATT RYAN MD Exam/Review of Systems Vital Signs Vitals Vital Signs Date Temp Pulse Resp B/P (MAP) Pulse Ox O2 O2 Flow FiO2 Time Delivery Rate 05/24/18 62 16 98 21 14:40 05/24/18 98.2 120/59 Room Air 14:17 (79) Intake and Output 05/23/18 05/23/18 05/24/18 1515:00 23:00 07:00 IntakeIntake Total 890 ml 280 ml 160 ml OutputOutput Total 1350 ml BalanceBalance 890 ml -1070 ml 160 ml Exam Review of Systems: CONSTITUTIONAL: No fevers, chills. PULMONARY: No sob CARDIOVASCULAR: No chest pain/palpitations GASTROINTESTINAL: No nausea/vomiting. GENITOURINARY: No hematuria/dysuria. MUSCULOSKELETAL: No myagias/arthalgias. PSYCHIATRIC: The patient denies depression. NEUROLOGIC: No weakness Constitutional: alert Psych: no complaints Head: normocephalic ENMT: mucosa pink and moist Neck: supple, jvd (9 cm water) Respiratory: diminished breath sounds (at bases/B) Cardiovascular: regular rate and rhythm Gastrointestinal: soft, non-tender Musculoskeletal: muscle tone (normal) Extremities: edema (trace/B) Medications Medications Current Medications Dextrose/Sodium Chloride 1,000 ml @ 20 mls/hr Q24H IV Last administered on 05/23/18 20:53; Admin Dose 20 MLS/HR; Start 05/18/18 at 12:30 Heparin Sodium (Porcine) (Heparin (5000 Units/1ml)) 5,000 unit BID SC Last administered on 05/24/18 09:09; Admin Dose 5,000 UNIT; Start 05/18/18 at 21:00 Metoprolol Tartrate (Lopressor) 5 mg Q4 PRN IV HR>110 Hold SBP<100; Start 05/18/18 at 17:00 Atorvastatin Calcium (Lipitor) 20 mg QHS PO Last administered on 05/23/18 20:29; Admin Dose 20 MG; Start 05/18/18 at 21:00 Cholecalciferol (Vitamin D) 1,000 unit DAILY PO Last administered on 05/24/18 09:08; Admin Dose 1,000 UNIT; Start 05/19/18 at 09:00 Donepezil HCl (Aricept) 10 mg DAILY PO Last administered on 05/24/18 09:08; Admin Dose 10 MG; Start 05/19/18 at 09:00 Memantine (Namenda) 5 mg DAILY PO Last administered on 05/24/18 09:08; Admin Dose 5 MG; Start 05/19/18 at 09:00 Metoprolol Tartrate (Lopressor) 50 mg BID PO Last administered on 05/24/18 09:08; Admin Dose 50 MG; Start 05/19/18 at 21:00 Albuterol/ Ipratropium (Duoneb) 3 ml Q6H RESP THERAPY HHN Last administered on 05/24/18 14:40; Admin Dose 3 ML; Start 05/20/18 at 11:00 Pantoprazole (Protonix Tab) 40 mg DAILY@06 PO Last administered on 05/24/18at 05:39; Admin Dose 40 MG; Start 05/21/18 at 06:00 Acetaminophen (Tylenol Tab) 650 mg Q6H PRN PO MILD PAIN(1-3)OR ELEVATED TEMP; Start 05/21/18 at 11:30 Cefepime HCl 50 ml @ 100 mls/hr Q24H IVPB Last administered on 05/24/18at 11:52; Admin Dose 100 MLS/HR; Start 05/21/18 at 12:00 Hydralazine HCl (Apresoline) 25 mg Q8 PO Last administered on 05/24/18at 15:02; Admin Dose 25 MG; Start 05/22/18 at 14:00 Tamoxifen Citrate (Nolvadex) 20 mg DAILY PO Last administered on 05/24/18at 10:50; Admin Dose 20 MG; Start 05/24/18 at 09:00 KELLI AMBROSE May 24, 2018 15:28
--- NOTE | 2018-05-24 15:48 | CONS ---
Date/Time of Note Date/Time of Note DATE: 05/24/18 TIME: 15:46 Assessment/Plan Assessment/Plan Hospital Course Looks comfortable, no fevers Indwelling: [place] Microbiology: Urine culture growing E. coli and Klebsiella pneumoniae susceptible to Levaquin. Blood culture grew E. coli also susceptible to levofloxacin, repeat blood cultures negative Chest x-ray on admission revealed cardiomegaly with vascular congestion and mild left basilar atelectasis Antimicrobials: Cefepime Physical examination: Chronically ill-appearing wasted elderly woman who is in no distress. Head atraumatic normocephalic sclera nonicteric neck is supple chest rise symmetrical breath sounds diminished bases. Heart: S1-S2. Abdomen soft bowel sounds present extremities: With trace edema Assessment: 1. Sepsis, present on admission ?PNA 2. Polymicrobial UTI with bacteremia 3. E. coli UTI 4. Tachyarrhythmia, cardiology on case 5. CHF 6. Encephalopathy 7. History of breast cancer status post bilateral mastectomy Plan: Patient remained unchanged, repeat bld cx negative, continue antibiotics, ok to downgrade to oral levofloxacin in couple more days to complete 2 weeks abx Result Diagram: 05/23/1872405/23/18724 Consultation Date/Type/Reason Admit Date/Time May 18, 2018 at 10:38 Initial Consult Date Type of Consult id Requesting Provider: MATT RYAN MD Exam/Review of Systems Vital Signs Vitals Vital Signs Date Temp Pulse Resp B/P (MAP) Pulse Ox O2 O2 Flow FiO2 Time Delivery Rate 05/24/18 62 16 98 21 14:40 05/24/18 98.2 120/59 Room Air 14:17 (79) Intake and Output 05/23/18 05/23/18 05/24/18 1515:00 23:00 07:00 IntakeIntake Total 890 ml 280 ml 160 ml OutputOutput Total 1350 ml BalanceBalance 890 ml -1070 ml 160 ml Medications Medications Current Medications Dextrose/Sodium Chloride 1,000 ml @ 20 mls/hr Q24H IV Last administered on 05/23/18at 20:53; Admin Dose 20 MLS/HR; Start 05/18/18 at 12:30 Heparin Sodium (Porcine) (Heparin (5000 Units/1ml)) 5,000 unit BID SC Last administered on 05/24/18at 09:09; Admin Dose 5,000 UNIT; Start 05/18/18 at 21:00 Metoprolol Tartrate (Lopressor) 5 mg Q4 PRN IV HR>110 Hold SBP<100; Start 05/18/18 at 17:00 Atorvastatin Calcium (Lipitor) 20 mg QHS PO Last administered on 05/23/18 20:29; Admin Dose 20 MG; Start 05/18/18 at 21:00 Cholecalciferol (Vitamin D) 1,000 unit DAILY PO Last administered on 05/24/18 09:08; Admin Dose 1,000 UNIT; Start 05/19/18 at 09:00 Donepezil HCl (Aricept) 10 mg DAILY PO Last administered on 05/24/18 09:08; Admin Dose 10 MG; Start 05/19/18 at 09:00 Memantine (Namenda) 5 mg DAILY PO Last administered on 05/24/18 09:08; Admin Dose 5 MG; Start 05/19/18 at 09:00 Metoprolol Tartrate (Lopressor) 50 mg BID PO Last administered on 05/24/18 09:08; Admin Dose 50 MG; Start 05/19/18 at 21:00 Albuterol/ Ipratropium (Duoneb) 3 ml Q6H RESP THERAPY HHN Last administered on 05/24/18 14:40; Admin Dose 3 ML; Start 05/20/18 at 11:00 Pantoprazole (Protonix Tab) 40 mg DAILY@06 PO Last administered on 05/24/18 05:39; Admin Dose 40 MG; Start 05/21/18 at 06:00 Acetaminophen (Tylenol Tab) 650 mg Q6H PRN PO MILD PAIN(1-3)OR ELEVATED TEMP; Start 05/21/18 at 11:30 Cefepime HCl 50 ml @ 100 mls/hr Q24H IVPB Last administered on 05/24/18 11:52; Admin Dose 100 MLS/HR; Start 05/21/18 at 12:00 Hydralazine HCl (Apresoline) 25 mg Q8 PO Last administered on 05/24/18 15:02; Admin Dose 25 MG; Start 05/22/18 at 14:00 Tamoxifen Citrate (Nolvadex) 20 mg DAILY PO Last administered on 05/24/18at 10:50; Admin Dose 20 MG; Start 05/24/18 at 09:00 GIFTY LARA NP May 24, 2018 15:48
== END 2018-05-24 19:10 | DRG 871 ==
LOC: E/R 08:14 → 6WM 10:38 → 5EC 05-22 18:43 → PP2 05-23 11:20
PROVIDERS: ADMIT Internal Medicine Nephrology; ATTEND Internal Medicine Nephrology
DX: A41.51 Sepsis due to Escherichia coli [E. coli] (principal); J69.0 Pneumonitis due to inhalation of food and vomit; I50.33 Acute on chronic diastolic (congestive) heart failure; N17.9 Acute kidney failure, unspecified; E87.1 Hypo-osmolality and hyponatremia; N12 Tubulo-interstitial nephritis, not specified as acute or chronic; G93.40 Encephalopathy, unspecified; E87.5 Hyperkalemia; I48.91 Unspecified atrial fibrillation; D64.9 Anemia, unspecified; I11.0 Hypertensive heart disease with heart failure; E78.5 Hyperlipidemia, unspecified; F03.90 Unspecified dementia, unspecified severity, without behavioral disturbance, psychotic disturbance, mood disturbance, and anxiety; R65.20 Severe sepsis without septic shock; C50.911 Malignant neoplasm of unspecified site of right female breast; M81.0 Age-related osteoporosis without current pathological fracture; Z74.01 Bed confinement status
CPT/HCPCS: 36415; 70450; 71045; 76705; 76775; 80048; 80053; 81001; 82150; 82550; 82553; 83605; 83690; 83735; 83880; 84100; 84132; 84443; 84484; 85025; 85610; 85730; 87040; 87086; 92526; 92610; 93005; 93306; 94640; 94664; 96374; C9113; J0692; J0696; J1644; J1940; J7030; J7042